=== PATIENT | male | born 1940 | race Caucasian/White ===

== ENCOUNTER 2016-04-27 07:43 | Outpatient (CLI) | payer MEDICARE, BC ==
[2016-04-27 08:06] LABS: INR-International Normal Ratio 3.1; Prothrombin Time 31.5 SEC (12.0-14.7)
== END 2016-04-27 07:44 | disposition home or self-care (01) ==
LOC: MADLAB 07:43
PROVIDERS: ATTEND Family Medicine
DX: I48.91 Unspecified atrial fibrillation (principal)
CPT/HCPCS: 36415; 85610

== ENCOUNTER 2016-05-27 07:13 | Outpatient (CLI) | payer MEDICARE, BC ==
[2016-05-27 07:41] LABS: INR-International Normal Ratio 2.3; Prothrombin Time 25.2 SEC (12.0-14.7)
[2016-05-27 07:50] LABS: Hemoglobin A1c 8.4 % (4.0-6.0)
[2016-05-27 07:51] LABS: #Basophils 0.1 thou/uL (0.0-0.2); #Eosinphils 0.1 thou/uL (0.0-0.7); #Lymphocytes 2.2 thou/uL (1.20-3.40); #Monocytes 0.7 thou/uL (0.11-0.59); #Neutrophils 3.2 thou/uL (1.40-6.50); %Basophils 1.6 % (0.0-1.0); %Eosinophils 2.2 % (0.0-10.0); %Lymphocytes 33.8 % (21.0-51.0); %Monocytes 11.5 % (0.0-10.0); %Neutrophils 50.8 % (42.0-75.0); Hemoglobin 13.5 g/dL (14.0-18.0); Large Platelets SLIGHT; MDiff Complete? YES; Mean Corpuscular HGB CONC 33.7 g/dL (32.0-36.0); Mean Corpuscular Volume 88.9 fl (80.0-94.0); PLT Morphology Comment Appears Adequate; Platelet Count 154 thou/uL (130-400); RBC Distribution Width 13.9 % (11.5-14.5); Red Blood Cell (RBC) Count 4.51 mill/uL (4.70-6.10); White Blood Cell (WBC) Count 6.4 thou/uL (4.8-10.8)
[2016-05-27 08:05] LABS: ALT (SGPT) 33 U/L (0-55); AST (SGOT) 22 U/L (5-34); Albumin 4.1 g/dL (3.4-4.8); Alkaline Phosphatase 69 U/L (40-150); Anion Gap 13 mmol/L (10-20); BUN (Urea Nitrogen) 13 mg/dL (8.4-25.7); Bilirubin, Direct 0.2 mg/dL (0.1-0.3); Bilirubin, Total 0.5 mg/dL (0.2-1.2); Calc. Creatinine Clearance 0 mL/min (70-130); Calcium 9.3 mg/dL (7.8-10.44); Carbon Dioxide 29 mmol/L (23-31); Cardiac Risk 3.4 (Less than 4.5); Chloride 100 mmol/L (98-107); Cholesterol 120 mg/dL (< 200 Desired); Estimated GFR-MDRD 69; Glucose 123 mg/dL (83-110); HDL Cholesterol 35 mg/dL (>60 Neg Risk); LDL Cholesterol, Calculated 60 mg/dL; Potassium 3.8 mmol/L (3.5-5.1); Protein, Total 6.5 g/dL (5.8-8.1); Sodium 138 mmol/L (136-145); Triglycerides 125 mg/dL (Less than 150)
== END 2016-05-27 07:14 ==
LOC: MADLABBHPM 07:13
PROVIDERS: ATTEND Family Medicine
DX: E78.5 Hyperlipidemia, unspecified (principal); E11.9 Type 2 diabetes mellitus without complications; I48.91 Unspecified atrial fibrillation
CPT/HCPCS: 36415; 80048; 80061; 80076; 83036; 85025; 85610

== ENCOUNTER 2016-09-01 07:14 | Outpatient (CLI) | payer MEDICARE, BC ==
[2016-09-01 07:48] LABS: #Basophils 0.1 thou/uL (0.0-0.2); #Eosinphils 0.1 thou/uL (0.0-0.7); #Lymphocytes 2.1 thou/uL (1.20-3.40); #Monocytes 0.6 thou/uL (0.11-0.59); %Basophils 1.2 % (0.0-1.0); %Eosinophils 2.3 % (0.0-10.0); %Lymphocytes 35.6 % (21.0-51.0); %Monocytes 9.9 % (0.0-10.0); %Neutrophils 51.1 % (42.0-75.0); Hemoglobin 13.6 g/dL (14.0-18.0); Mean Corpuscular HGB CONC 33.6 g/dL (32.0-36.0); Mean Corpuscular Hemoglobin 30.4 pg (27.0-31.0); Mean Corpuscular Volume 90.5 fL (80.0-94.0); Mean Platelet Volume 13.9 fL (7.4-10.4); Platelet Count 144 thou/uL (130-400); RBC Distribution Width 13.3 % (11.5-14.5); Red Blood Cell (RBC) Count 4.48 mill/uL (4.70-6.10); White Blood Cell (WBC) Count 5.8 thou/uL (4.8-10.8)
[2016-09-01 08:11] LABS: PLT Morphology Comment Appears Adequate
[2016-09-01 08:23] LABS: INR-International Normal Ratio 2.3; Prothrombin Time 24.8 SEC (12.0-14.7)
[2016-09-01 08:29] LABS: Anion Gap 14 mmol/L (10-20); BUN (Urea Nitrogen) 11 mg/dL (8.4-25.7); Calc. Creatinine Clearance 0 mL/min (70-130); Calcium 9.2 mg/dL (7.8-10.44); Carbon Dioxide 28 mmol/L (23-31); Cardiac Risk 3.3 (Less than 4.5); Chloride 101 mmol/L (98-107); Cholesterol 129 mg/dl (< 200 Desired); Estimated GFR-MDRD 71; Glucose 146 mg/dL (83-110); HDL Cholesterol 39 mg/dL (>60 Neg Risk); LDL Cholesterol, Calculated 64 mg/dL; Potassium 3.7 mmol/L (3.5-5.1); Sodium 139 mmol/L (136-145); Triglycerides 132 mg/dL (Less than 150)
== END 2016-09-01 07:15 ==
LOC: MADLABBHPM 07:14
PROVIDERS: ATTEND Family Medicine
DX: I48.91 Unspecified atrial fibrillation (principal); E11.9 Type 2 diabetes mellitus without complications
CPT/HCPCS: 36415; 80048; 80061; 83036; 85025; 85610

== ENCOUNTER 2016-10-06 07:22 | Outpatient (CLI) | payer MEDICARE, BC ==
[2016-10-06 08:52] LABS: INR-International Normal Ratio 1.9; Prothrombin Time 21.8 SEC (12.0-14.7)
== END 2016-10-06 07:23 | disposition home or self-care (01) ==
LOC: MADLABBHPM 07:22
PROVIDERS: ATTEND Family Medicine
DX: I48.91 Unspecified atrial fibrillation (principal)
CPT/HCPCS: 36415; 85610

== ENCOUNTER 2016-11-29 07:17 | Outpatient (CLI) | payer MEDICARE, BC ==
[2016-11-29 07:57] LABS: INR-International Normal Ratio 2.2; Prothrombin Time 24.9 SEC (12.0-14.7)
[2016-11-29 08:05] LABS: Hemoglobin A1c 9.4 % (4.0-6.0)
[2016-11-29 08:07] LABS: ALT (SGPT) 40 U/L (8-55); AST (SGOT) 22 U/L (5-34); Albumin 4.1 g/dL (3.4-4.8); Alkaline Phosphatase 72 U/L (40-150); Bilirubin, Direct 0.2 mg/dL (0.1-0.3); Bilirubin, Total 0.5 mg/dL (0.2-1.2); Cardiac Risk 3.1 (Less than 4.5); Cholesterol 129 mg/dl (< 200 Desired); HDL Cholesterol 42 mg/dL (>60 Neg Risk); LDL Cholesterol, Calculated 63 mg/dL; Protein, Total 6.9 g/dL (5.8-8.1); Triglycerides 121 mg/dL (Less than 150)
[2016-11-29 09:29] LABS: #Basophils 0.1 thou/uL (0.0-0.2); #Eosinphils 0.1 thou/uL (0.0-0.7); #Lymphocytes 2.3 thou/uL (1.20-3.40); #Monocytes 0.6 thou/uL (0.11-0.59); #Neutrophils 2.5 thou/uL (1.40-6.50); %Basophils 1.4 % (0.0-1.0); %Lymphocytes 41.5 % (21.0-51.0); Hemoglobin 13.7 g/dL (14.0-18.0); Mean Corpuscular HGB CONC 32.2 g/dL (32.0-36.0); Mean Corpuscular Hemoglobin 29.5 pg (27.0-31.0); Mean Corpuscular Volume 91.5 fl (80.0-94.0); Mean Platelet Volume 12.7 fL (7.4-10.4); Platelet Count 154 thou/uL (130-400); RBC Distribution Width 13.7 % (11.5-14.5); Red Blood Cell (RBC) Count 4.66 mill/uL (4.70-6.10); White Blood Cell (WBC) Count 5.6 thou/uL (4.8-10.8)
[2016-11-29 09:39] LABS: Large Platelets SLIGHT; PLT Morphology Comment Appears Adequate
== END 2016-11-29 07:18 | disposition home or self-care (01) ==
LOC: MADLABBHPM 07:17
PROVIDERS: ATTEND Family Medicine
DX: E11.9 Type 2 diabetes mellitus without complications (principal); I48.91 Unspecified atrial fibrillation; Z79.899 Other long term (current) drug therapy
CPT/HCPCS: 36415; 80061; 80076; 83036; 85025; 85610

== ENCOUNTER 2017-01-19 13:58 | Emergency (ER) | payer MEDICARE, BC ==
[~2017-01-19 13:58] MED LIST: Sodium Chloride Irrig Solution 250 ML BOT ONE
[2017-01-19] MEDS ORDERED: Adacel (T-DAP) 0.5 ML VIAL ONE (14:19)
[2017-01-19] MEDS ORDERED: Triple Antibiotic Ointment 15 GM TUBE ONE (14:38)
[2017-01-19] MEDS ORDERED: Acetaminophen/Codeine 30-300mg Tablet ONE (14:46)
== END 2017-01-19 14:57 | disposition home or self-care (01) ==
LOC: MADERS 13:58
DX: S50.812A Abrasion of left forearm, initial encounter (principal); I25.10 Atherosclerotic heart disease of native coronary artery without angina pectoris; I48.91 Unspecified atrial fibrillation; E11.9 Type 2 diabetes mellitus without complications; E78.5 Hyperlipidemia, unspecified; Z86.73 Personal history of transient ischemic attack (TIA), and cerebral infarction without residual deficits; Z23 Encounter for immunization; X58.XXXA Exposure to other specified factors, initial encounter
CPT/HCPCS: 90471; 90715

== ENCOUNTER 2017-02-09 07:52 | Outpatient (CLI) | payer MEDICARE, BC ==
[2017-02-09 09:03] LABS: INR-International Normal Ratio 2.1; Prothrombin Time 24.4 SEC (12.0-14.7)
[2017-02-09 09:13] LABS: ALT (SGPT) 51 U/L (8-55); AST (SGOT) 35 U/L (5-34); Albumin 4.1 g/dL (3.4-4.8); Alkaline Phosphatase 68 U/L (40-150); Anion Gap 14 mmol/L (10-20); BUN (Urea Nitrogen) 18 mg/dL (8.4-25.7); Bilirubin, Direct 0.2 mg/dL (0.1-0.3); Bilirubin, Total 0.6 mg/dL (0.2-1.2); Calc. Creatinine Clearance 0 mL/min (70-130); Calcium 9.2 mg/dL (7.8-10.44); Carbon Dioxide 28 mmol/L (23-31); Cardiac Risk 2.8 (Less than 4.5); Chloride 101 mmol/L (98-107); Cholesterol 113 mg/dl (< 200 Desired); Estimated GFR-MDRD 80; Glucose 165 mg/dL (83-110); HDL Cholesterol 40 mg/dL (>60 Neg Risk); Hemoglobin A1c 6.6 % (4.0-6.0); LDL Cholesterol, Calculated 50 mg/dL; Potassium 3.8 mmol/L (3.5-5.1); Protein, Total 6.9 g/dL (5.8-8.1); Sodium 139 mmol/L (136-145); Triglycerides 117 mg/dL (Less than 150)
[2017-02-09 09:38] LABS: #Basophils 0.1 thou/uL (0.0-0.2); #Eosinphils 0.1 thou/uL (0.0-0.7); #Monocytes 0.5 thou/uL (0.11-0.59); #Neutrophils 3.2 thou/uL (1.40-6.50); %Basophils 1.1 % (0.0-1.0); %Eosinophils 1.8 % (0.0-10.0); %Lymphocytes 33.5 % (21.0-51.0); %Monocytes 9.1 % (0.0-10.0); %Neutrophils 54.4 % (42.0-75.0); Hemoglobin 13.4 g/dL (14.0-18.0); Mean Corpuscular Hemoglobin 30.3 pg (27.0-31.0); Mean Corpuscular Volume 91.9 fl (80.0-94.0); Mean Platelet Volume 11.6 fL (7.4-10.4); Platelet Count 158 thou/uL (130-400); RBC Distribution Width 13.5 % (11.5-14.5); White Blood Cell (WBC) Count 5.9 thou/uL (4.8-10.8)
== END 2017-02-09 07:53 | disposition home or self-care (01) ==
LOC: MADLABBHPM 07:52
PROVIDERS: ATTEND Family Medicine
DX: E11.9 Type 2 diabetes mellitus without complications (principal); E78.5 Hyperlipidemia, unspecified; I48.91 Unspecified atrial fibrillation
CPT/HCPCS: 36415; 80048; 80061; 80076; 83036; 85025; 85610

== ENCOUNTER 2017-03-09 08:17 | Outpatient (CLI) | payer MEDICARE, BC ==
[2017-03-09 08:33] LABS: INR-International Normal Ratio 2.7; Prothrombin Time 29.4 SEC (12.0-14.7)
== END 2017-03-09 08:18 | disposition home or self-care (01) ==
LOC: MADLAB 08:17
PROVIDERS: ATTEND Family Medicine
DX: Z51.81 Encounter for therapeutic drug level monitoring (principal); I48.91 Unspecified atrial fibrillation; Z79.01 Long term (current) use of anticoagulants
CPT/HCPCS: 36415; 85610

== ENCOUNTER 2017-05-12 12:43 | Outpatient (CLI) | payer MEDICARE, BC ==
[2017-05-12 13:01] LABS: Prothrombin Time 32.2 SEC (12.0-14.7)
== END 2017-05-12 12:44 | disposition home or self-care (01) ==
LOC: MADLABBHPM 12:43
PROVIDERS: ATTEND Family Medicine
DX: I48.91 Unspecified atrial fibrillation (principal)
CPT/HCPCS: 36415; 85610

== ENCOUNTER 2017-06-03 08:58 | Outpatient (CLI) | payer MEDICARE, BC ==
[2017-06-03 09:23] LABS: #Basophils 0.1 thou/uL (0.0-0.2); #Eosinphils 0.1 thou/uL (0.0-0.7); #Lymphocytes 2.6 thou/uL (1.20-3.40); #Monocytes 0.7 thou/uL (0.11-0.59); #Neutrophils 3.6 thou/uL (1.40-6.50); %Basophils 1.5 % (0.0-1.0); %Eosinophils 1.6 % (0.0-10.0); %Lymphocytes 35.7 % (21.0-51.0); %Monocytes 10.4 % (0.0-10.0); %Neutrophils 50.8 % (42.0-75.0); Hemoglobin 12.8 g/dL (14.0-18.0); Mean Corpuscular HGB CONC 32.2 g/dL (32.0-36.0); Mean Corpuscular Hemoglobin 28.9 pg (27.0-31.0); Mean Corpuscular Volume 89.8 fl (80.0-94.0); Mean Platelet Volume 10.9 fL (7.4-10.4); Platelet Count 165 thou/uL (130-400); RBC Distribution Width 14.3 % (11.5-14.5); Red Blood Cell (RBC) Count 4.44 mill/uL (4.70-6.10); White Blood Cell (WBC) Count 7.2 thou/uL (4.8-10.8)
[2017-06-03 09:27] LABS: INR-International Normal Ratio 2.1; Prothrombin Time 24.3 SEC (12.0-14.7)
[2017-06-03 09:38] LABS: ALT (SGPT) 40 U/L (8-55); AST (SGOT) 23 U/L (5-34); Albumin 4.2 g/dL (3.4-4.8); Alkaline Phosphatase 72 U/L (40-150); Anion Gap 14 mmol/L (10-20); BUN (Urea Nitrogen) 21 mg/dL (8.4-25.7); Bilirubin, Total 0.5 mg/dL (0.2-1.2); Calc. Creatinine Clearance 0 mL/min (70-130); Calcium 9.1 mg/dL (7.8-10.44); Carbon Dioxide 28 mmol/L (23-31); Cardiac Risk 2.6 (Less than 4.5); Chloride 101 mmol/L (98-107); Cholesterol 110 mg/dl (< 200 Desired); Estimated GFR-MDRD 74; Glucose 95 mg/dL (83-110); HDL Cholesterol 43 mg/dL (>60 Neg Risk); LDL Cholesterol, Calculated 54 mg/dL; Potassium 4.1 mmol/L (3.5-5.1); Protein, Total 6.7 g/dL (5.8-8.1); Sodium 139 mmol/L (136-145); Triglycerides 64 mg/dL (Less than 150)
[2017-06-03 12:18] LABS: Bilirubin, Direct 0.3 mg/dL (0.1-0.3)
[2017-06-03 17:01] LABS: Hemoglobin A1c 6.2 % (4.0-6.0)
== END 2017-06-03 08:59 | disposition home or self-care (01) ==
LOC: MADLABBHPM 08:58
PROVIDERS: ATTEND Family Medicine
DX: E11.9 Type 2 diabetes mellitus without complications (principal); I10 Essential (primary) hypertension
CPT/HCPCS: 36415; 80048; 80061; 80076; 83036; 85025; 85610

== ENCOUNTER 2017-07-07 08:40 | Outpatient (CLI) | payer MEDICARE, BC ==
[2017-07-07 10:22] LABS: INR-International Normal Ratio 2.1; Prothrombin Time 24.7 SEC (12.0-14.7)
== END 2017-07-07 08:41 | disposition home or self-care (01) ==
LOC: MADLABBHPM 08:40
PROVIDERS: ATTEND Family Medicine
DX: Z51.81 Encounter for therapeutic drug level monitoring (principal); I48.91 Unspecified atrial fibrillation; Z79.01 Long term (current) use of anticoagulants
CPT/HCPCS: 36415; 85610

== ENCOUNTER 2017-09-02 07:22 | Outpatient (CLI) | payer MEDICARE, BC ==
[2017-09-02 07:54] LABS: #Basophils 0.1 thou/uL (0.0-0.2); #Eosinphils 0.1 thou/uL (0.0-0.7); #Lymphocytes 2.1 thou/uL (1.20-3.40); #Monocytes 0.6 thou/uL (0.11-0.59); #Neutrophils 3.5 thou/uL (1.40-6.50); %Basophils 1.2 % (0.0-1.0); %Eosinophils 0.8 % (0.0-10.0); %Lymphocytes 32.8 % (21.0-51.0); %Monocytes 9.5 % (0.0-10.0); %Neutrophils 55.8 % (42.0-75.0); Hemoglobin 13.2 g/dL (14.0-18.0); Mean Corpuscular Hemoglobin 27.8 pg (27.0-31.0); Mean Corpuscular Volume 86.7 fl (80.0-94.0); Mean Platelet Volume 11.4 fL (7.4-10.4); Platelet Count 162 thou/uL (130-400); RBC Distribution Width 14.2 % (11.5-14.5); Red Blood Cell (RBC) Count 4.74 mill/uL (4.70-6.10); White Blood Cell (WBC) Count 6.3 thou/uL (4.8-10.8)
[2017-09-02 09:27] LABS: Prothrombin Time 23.6 SEC (12.0-14.7)
[2017-09-02 09:40] LABS: ALT (SGPT) 31 U/L (8-55); AST (SGOT) 17 U/L (5-34); Albumin 4.2 g/dL (3.4-4.8); Alkaline Phosphatase 62 U/L (40-150); Anion Gap 12 mmol/L (10-20); BUN (Urea Nitrogen) 15 mg/dL (8.4-25.7); Bilirubin, Direct 0.2 mg/dL (0.1-0.3); Bilirubin, Total 0.7 mg/dL (0.2-1.2); Calc. Creatinine Clearance 0 mL/min (70-130); Calcium 9.3 mg/dL (7.8-10.44); Carbon Dioxide 29 mmol/L (23-31); Cardiac Risk 2.2 (Less than 4.5); Chloride 101 mmol/L (98-107); Cholesterol 112 mg/dl (< 200 Desired); Estimated GFR-MDRD 84; Glucose 115 mg/dL (83-110); HDL Cholesterol 51 mg/dL (>60 Neg Risk); LDL Cholesterol, Calculated 49 mg/dL; Protein, Total 6.7 g/dL (5.8-8.1); Sodium 138 mmol/L (136-145); Triglycerides 59 mg/dL (Less than 150)
[2017-09-02 11:47] LABS: Hemoglobin A1c 6.9 % (4.0-6.0)
== END 2017-09-02 07:23 ==
LOC: MADLABBHPM 07:22
PROVIDERS: ATTEND Family Medicine
DX: E11.9 Type 2 diabetes mellitus without complications (principal); E78.5 Hyperlipidemia, unspecified; I48.91 Unspecified atrial fibrillation
CPT/HCPCS: 36415; 80048; 80061; 80076; 83036; 85025; 85610

== ENCOUNTER 2017-09-30 14:39 | Emergency (ER) | payer MEDICARE, BC ==
[2017-09-30] MEDS ORDERED: Labetalol HCl 100 MG/20 ML VIAL ONE (15:12)
[2017-09-30 15:14] LABS: #Basophils 0.1 thou/uL (0.0-0.2); #Lymphocytes 1.9 thou/uL (1.20-3.40); #Neutrophils 8.3 thou/uL (1.40-6.50); %Basophils 0.6 % (0.0-1.0); %Eosinophils 0.2 % (0.0-10.0); %Lymphocytes 16.5 % (21.0-51.0); %Monocytes 9.2 % (0.0-10.0); %Neutrophils 73.5 % (42.0-75.0); Hemoglobin 13.5 g/dL (14.0-18.0); Large Platelets SLIGHT; MDiff Complete? YES; Mean Corpuscular HGB CONC 33.4 g/dL (32.0-36.0); Mean Corpuscular Hemoglobin 28.8 pg (27.0-31.0); Mean Corpuscular Volume 86.2 fL (78.0-98.0); Platelet Count 167 thou/uL (130-400); RBC Distribution Width 14.1 % (11.5-14.5); Red Blood Cell (RBC) Count 4.68 mill/uL (4.70-6.10); White Blood Cell (WBC) Count 11.3 thou/uL (4.8-10.8)
[2017-09-30 15:19] LABS: INR-International Normal Ratio 2.6; Prothrombin Time 27.7 SEC (12.0-14.7)
[2017-09-30 15:21] LABS: Chloride 100 mmol/L (98-107); Potassium 4.4 mmol/L (3.5-5.1); Sodium 136 mmol/L (136-145)
[2017-09-30 15:24] LABS: PTT 49.3 SEC (22.9-36.1)
--- NOTE | 2017-09-30 15:25 | RAD ---
PORTABLE CHEST 1 VIEW: Date: 09/30/17 Time: 1455 hours HISTORY: Tachycardia. FINDINGS: Comparison made with exam of 11/28/11. The heart is enlarged. The lungs are well expanded without lobar consolidation, pneumothoraces, alireza pulmonary edema, or pleural effusions. IMPRESSION: No acute process. POS: C
[2017-09-30 15:29] LABS: CKMB 2.6 ng/mL (0-6.6); D-Dimer Test Less than 0.27 *mcg/mL (0.27-0.43); Troponin I 0.295 ng/mL (< 0.028)
[2017-09-30 16:05] LABS: ALT (SGPT) 26 U/L (8-55); AST (SGOT) 17 U/L (5-34); Alkaline Phosphatase 62 U/L (40-150); BUN (Urea Nitrogen) 14 mg/dL (8.4-25.7); CK (CPK) 96 U/L (30-200); Calc. Creatinine Clearance 0 mL/min (70-130); Calcium 8.9 mg/dL (7.8-10.44); Carbon Dioxide 23 mmol/L (23-31); Estimated GFR-MDRD 73; Globulin 2.7 g/dL (2.4-3.5); Glucose 156 mg/dL (83-110); Protein, Total 6.7 g/dL (5.8-8.1)
[2017-09-30 16:14] LABS: Anion Gap 17 mmol/L (10-20)
[2017-09-30 17:31] LABS: Bilirubin Negative (Negative); Blood, Urine Negative (Negative); Clarity Clear (Clear); Glucose, Urine (Dipstick) Negative (Negative); Leukocyte Negative (Negative); Nitrite Negative (Negative); Protein, Urine (Dipstick) 30 mg/dL (Neg-Trace); Specific Gravity, Urine 1.025 (1.005-1.030); pH, Urine 6.5 (5.0-9.0)
[2017-09-30 17:40] LABS: Bacteria/HPF None Seen HPF (None Seen); RBC/HPF None Seen HPF (0-3); Sperm/HPF 1+ HPF (None Seen); Squamous Epithelial 0-3 HPF (0-3); WBC/HPF None Seen HPF (0-3)
== END 2017-09-30 18:44 | disposition short-term general hospital (02) ==
LOC: MADERS 14:39
DX: I21.4 Non-ST elevation (NSTEMI) myocardial infarction (principal); I48.92 Unspecified atrial flutter; I50.9 Heart failure, unspecified; E11.9 Type 2 diabetes mellitus without complications; E78.5 Hyperlipidemia, unspecified; M06.9 Rheumatoid arthritis, unspecified
CPT/HCPCS: 36415; 71045; 80053; 81001; 82553; 83880; 84484; 85025; 85379; 85610; 85730; 93005; 94760; 96374; 96376

== ENCOUNTER 2017-10-25 14:05 | Inpatient (IN) | payer MEDICARE, BC ==
[2017-10-25] MEDS ORDERED: Acetaminophen/Codeine 30-300mg Tablet PO PRN (17:07)
[2017-10-25] MEDS ORDERED: Dextrose 5% in Water 1,000 ML IV PRN (17:32)
[2017-10-25] MEDS ORDERED: Dextrose 50% Abboject 50 ML SYRINGE IVP PRN (17:32)
[2017-10-25] MEDS: Acetaminophen/Codeine 30-300mg Tablet PO PRN ×2 (17:41→23:40)
[2017-10-25] MEDS: HumaLOG 300 UNITS/3 ML VIAL SC SCH (17:50)
[2017-10-25] MEDS ORDERED: Cephalexin 500 MG CAP PO SCH (20:00)
[2017-10-25] MEDS: Apixaban 5 MG TAB PO SCH (21:23)
[2017-10-25] MEDS: Pregabalin 50 MG CAP PO SCH (21:24)
[2017-10-25] MEDS: Levemir Flexpen 100 UNITS/ML PEN SC SCH (21:25)
[2017-10-25] MEDS: Latanoprost 0.005% Ophth Soln 2.5 ml Bottle EA EYE SCH (21:26)
[2017-10-25] MEDS: Cephalexin 500 MG CAP PO SCH (23:40)
--- NOTE | 2017-10-26 00:30 | HP ---
CHIEF COMPLAINT: Weakness. HISTORY OF PRESENT ILLNESS: The patient is a 76-year-old white male who has a history of diabetes type 2, insulin requiring, paroxysmal atrial fibrillation, hypertension, rheumatoid arthritis, venous insufficiency of the lower extremities. Patient was hospitalized at [facility] from 09/30/2017 until 10/25/2017. The patient entered the hospital because of shortness of breath and rapid heart rate and was found to be in atrial fibrillation/flutter with rapid ventricular response. His initial echocardiogram showed severe depression of the left ventricular function with dilated left atrium and an ejection fraction of 15-20%. He initially was managed with diuretics a Cardizem drip that did not control the rate and amiodarone drip was added. He persisted with the tachycardia. He was seen in consultation by ceramic design engineer, Dr. Johansen and on 10/04/2017, he underwent a cavotricuspid isthmus ablation that was unsuccessful and required cardioversion. A repeat echocardiogram was done on 10/07/2017 that showed severe aortic stenosis, severe left atrial enlargement and now an ejection fraction had improved to 50- 55%. The initial severe ejection fraction depression was felt to be tachycardia induced, his congestive heart failure improved. The patient developed polymorphic ventricular tachycardia that was controlled with his amiodarone. He underwent a heart catheterization on 10/12/2017 and found to have severe triple-vessel disease with severe aortic stenosis. Consequently, he underwent a coronary artery bypass x3, aortic valve replacement with a bioprosthetic valve #25 magna and a ligation of the left atrial appendage, Dr. Jim Hernandez on 10/14/2017. The patient again developed episodes of atrial fibrillation with rapid ventricular response. Patient had again had episodes of rapid ventricular response with atrial fibrillation. He underwent a transesophageal echocardiogram on 10/19/2017 that showed normal left ventricular systolic function, left atrial appendage, leak of 0.3 cm and a clot left atrial appendage. The patient was on 10/20/2017 underwent a successful AV claudia ablation and also had placed a biventricular pacemaker. He was monitored for several days afterwards to ensure that there was no further prolongation of his QT interval. Patient gradually improved. He had marked peripheral edema that gradually resolved with IV diuresis. He was left extremely weak. He was continued on anticoagulant with Eliquis. While hospitalized, his diabetes was managed with his usual dose of Humalog 10 units before meals and Levemir 40 units daily at bedtime. His condition was one of gradual improvement. He was discharged to [facility] to extended care due to his severe weakness and deconditioning. Patient was seen in his hospital room at [facility] along with his and daughter. He was able to tell me about the prolonged hospitalization, he said he is feeling a lot better, but just extremely weak and sore in his chest and along the legs were from the donor sites for his graft harvesting. Patient said he has not had any shortness of breath and the swelling is much better. PAST HISTORY: Hospitalized at [facility] for 09/30/2017-10/25/2017 as outlined above Diabetes type 2, insulin requiring; history of paroxysmal atrial fibrillation requiring hospitalization for rapid ventricular response with congestive heart failure on 09/30/2017, tachycardia-induced cardiomyopathy with an ejection fraction on admission on 09/30/2017 of 15-20% improved after control of the tachycardia to 50-55% on repeat echocardiogram on 10/07/2017. Clot in the left atrial appendage found on transesophageal echocardiogram on with aortic stenosis for which he underwent an aortic valve replacement on 10/14/2017 with coronary artery bypass x3 and ligation of the left atrial appendage, hypertension, rheumatoid arthritis that is managed with low-dose prednisone, Enbrel weekly, methotrexate and hydroxychloroquine, obstructive sleep apnea for which he uses a CPAP, hyperlipidemia, history of asthma, gastroesophageal reflux disease, venous insufficiency of the lower extremities with chronic stasis dermatitis, obesity. The patient had a colonoscopy which showed internal hemorrhoids. This was done in 2011, left carpal tunnel repair in 2010, right knee orthoscopy with medial meniscus repair in 2004, low back surgery for ruptured disk in 1973, cataract removal in 07/2017 on the right with intraocular lens implant on the left in 08/2017. PRESENT MEDICATIONS: Eliquis 5 mg b.i.d., atorvastatin 20 mg daily, aspirin 81 mg daily, carvedilol 6.25 mg b.i.d., cephalexin 500 mg q.i.d. prescribed for 7 days, Zyrtec 10 mg daily as needed for allergies, Enbrel 50 mg per mL 1 mL subQ once a week, furosemide 40 mg b.i.d., folic acid 1 mg daily. At home he takes instead of the gabapentin, Lyrica 50 mg 1 daily at bedtime, Humalog 10 units subQ before meals, Levemir 40 units subcutaneous daily at bedtime, Xalatan 0.005 % 1 drop in the eyes at bedtime, losartan 25 mg daily, multivitamin daily, methotrexate 7.5 mg twice daily, MiraLax 17 grams 8 ounces water daily, Prilosec 20 mg daily, KCl 20 mEq b.i.d., prednisone 5 mg daily, spironolactone 25 mg b.i.d., albuterol inhaler 2 puffs every 4 hours as needed, and Tylenol #3 one or two every 6 hours as needed for pain. ALLERGIES: LISINOPRIL causes a cough. SPIRONOLACTONE gynecomastia. METFORMIN diarrhea. Hydroxychloroquin, LEVAQUIN interactions with his medication. MULTAQ. REVIEW OF SYSTEMS: The patient said he is weak and just does not have a lot of energy yet. He has not had any fever since his weight has dropped some with the resolution of the edema in his legs and groin. Pulmonary: No shortness of breath. Cardiovascular: No chest pain other than the chest wall soreness from the sternal incision. Gastrointestinal: No nausea or vomiting. Bowels are working. : No complaint. Neurologic: No complaints. ADLs: Prior to hospitalization, the patient was independent of all his ADLs and instrumental ADLs. HABITS: The patient does not smoke or drink. SOCIAL HISTORY: Patient is and lives at home with his and child. CODE STATUS: FULL CODE. PHYSICAL EXAMINATION: GENERAL: Shows a very pleasant 76-year-old white male who is lying propped up in his bed with his and daughter in attendance. He is alert, appears comfortable and in no distress. VITAL SIGNS: Shows a temperature of 97.9, pulse 82, respirations 20, O2 sat 96 % on room air, blood pressure 117/64. His weight is 272. Last weight in the office on 09/07/2017 was 289. HEAD: Normocephalic. EYES: Pupils are equal, round, and reactive. Sclerae nonicteric. EARS: There is some cerumen blocking the TMs bilaterally. NOSE: Normal. MOUTH AND THROAT: Normal. NECK: Carotids are equal and strong, no bruits. LUNGS: Clear with good breath sounds, but no rales or wheezes. HEART: Regular rate. STERNUM: There is a vertical incision that is healing. There are three wounds just in the epigastrium from his chest tubes that are healing, but they are still small and not yet completely closed. There is no surrounding redness or drainage. On the right upper chest, there is some just local irritation to the skin. Pacemaker site in the left upper chest. ABDOMEN: Soft, no organomegaly, nor areas of tenderness. EXTREMITIES: Trace edema in his chronic stasis changes. NEUROLOGIC: The patient is alert, oriented x3 with some generalized weakness, but no focal weakness. IMPRESSION: 1. Generalized weakness and deconditioning following a prolonged hospitalization at [facility] from 09/30/2017 until 10/25/2017. 2. Hospitalized at [facility] from 09/30/2017 until for atrial fibrillation with rapid ventricular response, congestive heart failure, requiring cavotricuspid isthmus ablation unsuccessful and cardioversion on 10/14/2017, coronary artery bypass x3 and aortic valve replacement with a bioprosthetic valve for severe aortic stenosis and then successful AV claudia ablation and biventricular pacemaker implant on 10/20/2017 3. Atrial fibrillation. A. History of paroxysmal atrial fibrillation, historically managed with Multaq. B. Hospitalized on 09/30/2017 for atrial fibrillation with RVR. C. Required cavotricuspid isthmus ablation that was unsuccessful and electric cardioversion on 10/04/2017. D. Status post successful AV claudia ablation and placement of a biventricular pacemaker on 10/20/[address] Johansen, ceramic design engineer. E. 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 4. Coronary artery disease, triple vessel. A. Status post coronary artery bypass x3 with ligation of the left atrial appendage on 10/14/[address] Jim Hernandez along with aortic valve replacement. 5. Severe aortic stenosis. A. Status post aortic valve replacement with a bioprosthetic valve a #25 Magna on 10/14/[address] Jim Hernandez. 6. Acute congestive heart failure. A. Resolved with no evidence of acute congestive heart failure as of 07/24/ 2018. 7. History of ventricular arrhythmias, controlled. 8. Diabetes type 2. A. Insulin requiring. 9. Rheumatoid arthritis. 10. Hypertension. 11. Morbid obesity. 14. Obstructive sleep apnea for which he is on CPAP. 15. Venous insufficiency of the lower extremities complicated by stasis dermatitis that is controlled. 16. Gastroesophageal reflux disease. 17. History of asthma. A. Presently asymptomatic. PLAN: The patient has been admitted to [facility] for purpose of physical therapy and occupational therapy. We will continue his routine medications. We will continue checking blood sugars a.c. and at bedtime and place him on a consistent low carbohydrate diet with no added salt. We will advance activities as tolerated. CODE STATUS: FULL. MTDD
[2017-10-26 05:44] LABS: ALT (SGPT) 18 U/L (8-55); AST (SGOT) 17 U/L (5-34); Albumin 3.1 g/dL (3.4-4.8); Alkaline Phosphatase 67 U/L (40-150); Anion Gap 17 mmol/L (10-20); BUN (Urea Nitrogen) 27 mg/dL (8.4-25.7); Bilirubin, Total 1.1 mg/dL (0.2-1.2); Calc. Creatinine Clearance 83 mL/min (70-130); Calcium 9.2 mg/dL (7.8-10.44); Carbon Dioxide 31 mmol/L (23-31); Chloride 95 mmol/L (98-107); Estimated GFR-MDRD 53; Globulin 2.6 g/dL (2.4-3.5); Glucose 116 mg/dL (83-110); Potassium 4.8 mmol/L (3.5-5.1); Protein, Total 5.7 g/dL (5.8-8.1)
[2017-10-26 05:46] LABS: Anisocytosis SLIGHT = 6-15 cells (100X) (0-5/hpf); Hemoglobin 10.4 g/dL (14.0-18.0); Hypochromia SLIGHT = 6-15 cells (100X) (0-5/hpf); Lymphocytes 16 % (21-51); MDiff Complete? YES; Mean Corpuscular HGB CONC 32.8 g/dL (32.0-36.0); Mean Corpuscular Hemoglobin 28.1 pg (27.0-31.0); Mean Corpuscular Volume 85.4 fL (78.0-98.0); Mean Platelet Volume 10.4 fL (7.4-10.4); Monocytes 5 % (0-10); Neutrophil 72 % (42-75); PLT Morphology Comment Appears Adequate; Platelet Count 179 thou/uL (130-400); Poikilocytosis SLIGHT = 6-15 cells (100X) (0-5/hpf); RBC Distribution Width 15.8 % (11.5-14.5); RBC Morphology Abnormal; Reactive Lymphocytes 7 % (0-10); Red Blood Cell (RBC) Count 3.69 mill/uL (4.70-6.10); White Blood Cell (WBC) Count 8.6 thou/uL (4.8-10.8)
[2017-10-26 05:49] LABS: Sodium 138 mmol/L (136-145)
[2017-10-26] MEDS: Cephalexin 500 MG CAP PO SCH ×4 (05:51→23:37)
[2017-10-26] MEDS: Acetaminophen/Codeine 30-300mg Tablet PO PRN ×3 (05:51→21:09)
[2017-10-26] MEDS ORDERED: Potassium Chloride 20 MEQ TAB PO SCH (08:00)
[2017-10-26] MEDS: Folic Acid 1 MG TAB PO SCH (08:25)
[2017-10-26] MEDS: Losartan 25 MG TAB PO SCH (08:25)
[2017-10-26] MEDS: predniSONE 5 MG TAB PO SCH (08:25)
[2017-10-26] MEDS: Furosemide 40 MG TAB PO SCH ×2 (08:25→13:40)
[2017-10-26] MEDS: Carvedilol 6.25 MG TAB PO SCH ×2 (08:25→17:10)
[2017-10-26] MEDS: Apixaban 5 MG TAB PO SCH ×2 (08:25→21:04)
[2017-10-26] MEDS: Aspirin 81 mg Enteric Coated Tablet PO SCH (08:25)
[2017-10-26] MEDS: Atorvastatin Calcium 10 MG TAB PO SCH (08:25)
[2017-10-26] MEDS: Multivitamin W/ Minerals 1 TAB PO SCH (08:25)
[2017-10-26] MEDS: Spironolactone 25 MG TAB PO SCH ×2 (08:25→17:11)
[2017-10-26] MEDS: Loratadine 10 MG TAB PO SCH (08:25)
[2017-10-26] MEDS: HumaLOG 300 UNITS/3 ML VIAL SC SCH ×4 (08:27→16:46)
[2017-10-26] MEDS: Polyethylene Glycol 3350 17 GM Packet PO SCH (08:27)
--- NOTE | 2017-10-26 08:37 | PRG ---
DATE OF SERVICE: 10/26/2017 SUBJECTIVE: The patient said he is doing okay this morning. The patient said he slept pretty well. He is not having any shortness of breath. He is still sore in his chest from just the incision, but no more than usual. The patient said that he takes the Lyrica at night. It helps with the neuropat hy in his legs. He was also taking just 100 mg dose of gabapentin. I am not really sure what for th is was stopped. I see high dose on the Lyrica alone. OBJECTIVE: The patient is lying in bed, alert, appears very comfortable, in no distress. His vital signs show a temperature 97.9, pulse 82, respirations 20, O2 sat 95% on room air, blood pressure 118/ 65. Lungs were clear. Heart, regular rate. Extremities, no edema. LABORATORY DATA: His labs show an H and H of 10.4 and 31.5, white cell count 8600 with 72% segs, 16% lymphocytes. Sodium is 138, potassium 4.8, BUN 27, creatinine 1.32, GFR 53. FBS 116. Last night a t bedtime glucose was 162 and just before supper 281. ASSESSMENT: 1. Generalized weakness and deconditioning following a prolonged hospitalization at [facility] from 09/30/2017 until 10/25/2017. A. Gradual improvement as of 10/26/2017. 2. Hospitalized at [facility] from 09/30/2017 until 10/25/2017 for atrial f ibrillation with rapid ventricular response, congestive heart failure, requiring cavotricuspid isthmu s ablation unsuccessful and cardioversion on 10/14/2017, coronary artery bypass x3 and aortic valve r eplacement with a bioprosthetic valve for severe aortic stenosis and then successful AV claudia ablatio n and biventricular pacemaker implant on 10/20/2017 3. Atrial fibrillation. A. History of paroxysmal atrial fibrillation, historically managed with Multaq. B. Hospitalized on 09/30/2017 for atrial fibrillation with RVR. C. Required cavotricuspid isthmus ablation that was unsuccessful and electric cardioversion on 10/04. D. Status post successful AV claudia ablation and placement of a biventricular pacemaker on 10/20/[address] Johansen, terry cloth cutter hand. E. 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 F. Remains in a regular rhythm with a rate in the 70 and 80s as of 10/26/2017. 4. Coronary artery disease, triple vessel. A. Status post coronary artery bypass x3 with ligation of the left atrial appendage on 10/14/[address] Jim Hernandez along with aortic valve replacement. B Healing well from his bypass surgery. 5. Severe aortic stenosis. A. Status post aortic valve replacement with a bioprosthetic valve a #25 Magna on 10/14/[address] Jim Hernandez. B. Healing well from his aortic valve replacement, as of 10/26/2017. 6. Acute congestive heart failure. A. Resolved with no evidence of acute congestive heart failure as of 10/25/2017. B. No evidence of acute congestive heart failure as of 10/26/2017. 7. History of ventricular arrhythmias, controlled. 8. Diabetes type 2. A. Insulin requiring. B. Well controlled. 9. Rheumatoid arthritis. A. Controlled. 10. Hypertension. 11. Morbid obesity. 14. Obstructive sleep apnea for which he is on CPAP. 15. Venous insufficiency of the lower extremities complicated by stasis dermatitis that is controlle d. 16. Gastroesophageal reflux disease. 17. History of asthma. A. Presently asymptomatic. PLAN: Continue present care. Continue PT and OT. The patient needs to arrange to bring his CPAP fr om home.
[2017-10-26] MEDS ORDERED: Gabapentin 100 MG CAP PO SCH (09:00)
[2017-10-26] MEDS ORDERED: Pregabalin 50 MG CAP PO SCH (09:00)
[2017-10-26] MEDS ORDERED: Potassium Chloride 10 MEQ TAB PO SCH (09:00)
[2017-10-26 12:27] LABS: Hemoglobin A1c 6.3 % (4.0-6.0)
[2017-10-26] MEDS ORDERED: Bisacodyl 10 MG SUPP PR PRN (14:46)
[2017-10-26] MEDS ORDERED: Mupirocin 2% Ointment 22 GM Tube TOP SCH (15:30)
[2017-10-26] MEDS: Potassium Chloride 10 MEQ TAB PO SCH (16:45)
[2017-10-26] MEDS: Latanoprost 0.005% Ophth Soln 2.5 ml Bottle EA EYE SCH (21:04)
[2017-10-26] MEDS: Levemir Flexpen 100 UNITS/ML PEN SC SCH (21:05)
[2017-10-26] MEDS: Pregabalin 50 MG CAP PO SCH (21:07)
[2017-10-27] MEDS: Cephalexin 500 MG CAP PO SCH ×4 (05:34→23:54)
[2017-10-27] MEDS: Acetaminophen/Codeine 30-300mg Tablet PO PRN ×3 (05:34→21:48)
[2017-10-27] MEDS: Carvedilol 6.25 MG TAB PO SCH ×2 (08:04→17:01)
[2017-10-27] MEDS: Potassium Chloride 10 MEQ TAB PO SCH ×2 (08:04→17:00)
[2017-10-27] MEDS: Polyethylene Glycol 3350 17 GM Packet PO SCH (08:05)
[2017-10-27] MEDS: Losartan 25 MG TAB PO SCH (08:05)
[2017-10-27] MEDS: Loratadine 10 MG TAB PO SCH (08:05)
[2017-10-27] MEDS: Apixaban 5 MG TAB PO SCH ×2 (08:05→21:46)
[2017-10-27] MEDS: Folic Acid 1 MG TAB PO SCH (08:05)
[2017-10-27] MEDS: Multivitamin W/ Minerals 1 TAB PO SCH (08:05)
[2017-10-27] MEDS: predniSONE 5 MG TAB PO SCH (08:05)
[2017-10-27] MEDS: Aspirin 81 mg Enteric Coated Tablet PO SCH (08:05)
[2017-10-27] MEDS: Spironolactone 25 MG TAB PO SCH ×2 (08:05→17:01)
[2017-10-27] MEDS: Atorvastatin Calcium 10 MG TAB PO SCH (08:05)
[2017-10-27] MEDS: Furosemide 40 MG TAB PO SCH ×2 (08:05→14:19)
[2017-10-27] MEDS: Mupirocin 2% Ointment 22 GM Tube TOP SCH (08:06)
[2017-10-27] MEDS: HumaLOG 300 UNITS/3 ML VIAL SC SCH ×3 (08:07→17:01)
[2017-10-27] MEDS: Methotrexate Sodium 2.5 MG TAB PO SCH (08:19)
[2017-10-27] MEDS ORDERED: Bacitracin Zinc 1 Packet TOP SCH (09:00)
--- NOTE | 2017-10-27 13:44 | PRG ---
DATE OF SERVICE: 10/27/2017 SUBJECTIVE: The patient said he is doing better. He is making some progress with his therapy. He h as had no shortness of breath, no chest pain other than the chest wall pain from the sternal incision . He says he has a little swelling in his legs, but no more than usual. His appetite is doing good. OBJECTIVE: GENERAL: The patient is sitting up on the side of the bed, eating his breakfast. He is alert, talka tive, looks excellent. Appears in no distress. VITAL SIGNS: Shows a temperature of 97.8, pulse 80, respirations 22, O2 saturation 97% on room air, blood pressure 118/61. His weight is up to 277 from 272. LUNGS: His lungs have excellent breath sounds and are clear. HEART: Regular rate. EXTREMITIES: The little red irritation in his right infraclavicular area at the site where his subcl simran line had been placed looks better, still little red, but the puncture site is healing. The wou nds at the xiphoid region are healing. They look better and are healing in. There is still just a l ittle bit of drainage, but no surrounding redness. These will be continued to be dressed and Bactrob an ointment applied. Lower extremities have trace edema. LABORATORY DATA: His FBS this morning was 91. His hemoglobin A1c is 6.3. ASSESSMENT: 1. Generalized weakness and deconditioning following a prolonged hospitalization at [facility] from 09/30/2017 until 10/25/2017. A. Improved as of 10/27/2017. 2. Hospitalized at [facility] from 09/30/2017 until 10/25/2017 for atrial f ibrillation with rapid ventricular response, congestive heart failure, requiring cavotricuspid isthmu s ablation unsuccessful and cardioversion on 10/14/2017, coronary artery bypass x3 and aortic valve r eplacement with a bioprosthetic valve for severe aortic stenosis and then successful AV claudia ablatio n and biventricular pacemaker implant on 10/20/2017 3. Atrial fibrillation. A. History of paroxysmal atrial fibrillation, historically managed with Multaq. B. Hospitalized on 09/30/2017 for atrial fibrillation with RVR. C. Required cavotricuspid isthmus ablation that was unsuccessful and electric cardioversion on 10/04. D. Status post successful AV claudia ablation and placement of a biventricular pacemaker on 10/20/[address] Johansen, web development manager. E. 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 F. Remains in a regular rhythm with a rate in the 70 and 80s as of 10/27/2017. 4. Coronary artery disease, triple vessel. A. Status post coronary artery bypass x3 with ligation of the left atrial appendage on 10/14/[address] Jim Hernandez along with aortic valve replacement. B. Healing well from the bypass surgery as of 10/27/2017. 5. Severe aortic stenosis. A. Status post aortic valve replacement with a bioprosthetic valve a #25 Magna on 10/14/[address] Jim Hernandez. B. Healing well from his aortic valve replacement, as of 10/27/2017. 6. Acute congestive heart failure. A. Resolved with no evidence of acute congestive heart failure as of 10/25/2017. B. No evidence of acute congestive heart failure as of 10/27/2017. 7. History of ventricular arrhythmias, controlled. 8. Diabetes type 2. A. Insulin requiring. B. Well controlled with hemoglobin A1c of 6.3 and an FBS of 91 as of 10/27/2017. Remaining diagnose s are the same. 9. Rheumatoid arthritis. A. Controlled. 10. Hypertension. 11. Morbid obesity. 14. Obstructive sleep apnea for which he is on CPAP. 15. Venous insufficiency of the lower extremities complicated by stasis dermatitis that is controlle d. 16. Gastroesophageal reflux disease. 17. History of asthma. A. Presently asymptomatic. PLAN: Continue present care. Continue PT and OT. Continue present medicines. Continue present wou nd care. The patient to use CPAP at night.
[2017-10-27] MEDS: Latanoprost 0.005% Ophth Soln 2.5 ml Bottle EA EYE SCH (21:46)
[2017-10-27] MEDS: Pregabalin 50 MG CAP PO SCH (21:47)
[2017-10-27] MEDS: Levemir Flexpen 100 UNITS/ML PEN SC SCH (21:49)
[2017-10-28] MEDS: Acetaminophen/Codeine 30-300mg Tablet PO PRN ×4 (04:05→21:31)
[2017-10-28] MEDS: Cephalexin 500 MG CAP PO SCH ×3 (05:53→17:17)
[2017-10-28] MEDS: Carvedilol 6.25 MG TAB PO SCH ×2 (08:49→17:17)
[2017-10-28] MEDS: Spironolactone 25 MG TAB PO SCH ×2 (08:49→17:17)
[2017-10-28] MEDS: Polyethylene Glycol 3350 17 GM Packet PO SCH (08:49)
[2017-10-28] MEDS: Loratadine 10 MG TAB PO SCH (08:49)
[2017-10-28] MEDS: Losartan 25 MG TAB PO SCH (08:49)
[2017-10-28] MEDS: Multivitamin W/ Minerals 1 TAB PO SCH (08:50)
[2017-10-28] MEDS: Apixaban 5 MG TAB PO SCH ×2 (08:50→21:20)
[2017-10-28] MEDS: Aspirin 81 mg Enteric Coated Tablet PO SCH (08:50)
[2017-10-28] MEDS: Potassium Chloride 10 MEQ TAB PO SCH ×2 (08:50→17:17)
[2017-10-28] MEDS: Furosemide 40 MG TAB PO SCH ×2 (08:50→14:50)
[2017-10-28] MEDS: Folic Acid 1 MG TAB PO SCH (08:50)
[2017-10-28] MEDS: Atorvastatin Calcium 10 MG TAB PO SCH (08:50)
[2017-10-28] MEDS: predniSONE 5 MG TAB PO SCH (08:50)
[2017-10-28] MEDS: Mupirocin 2% Ointment 22 GM Tube TOP SCH (08:51)
[2017-10-28] MEDS: HumaLOG 300 UNITS/3 ML VIAL SC SCH ×3 (08:51→17:16)
--- NOTE | 2017-10-28 12:21 | PRG ---
DATE OF SERVICE: 10/28/2017 SUBJECTIVE: The patient said that he had a restless night. He was just uncomfortable all over. He is better this morning. He did a lot of therapy yesterday. He did not have any particular area hurt ing more than the other, just could not quite get comfortable. He did take a Tylenol #3 and it helpe d a little bit. This morning he is better. He has had no shortness of breath this morning. OBJECTIVE: The patient is sitting up in a chair, he is alert, appears in no acute distress. His vit al signs shows a temperature of 97.8, pulse 82, respirations 18, O2 saturation 98% on room air, blood pressure 118/69. His weight is 275, output was 1700. His lungs were clear. Heart, regular rate. Extremities have trace edema. The wounds in the xiphoid area had minimal redness surrounding, overal l they look better. The wounds on the right infraclavicular area also look better. His FBS this mor opal was 112. ASSESSMENT: 1. Generalized weakness and deconditioning following a prolonged hospitalization at [facility] from 09/30/2017 until 10/25/2017. A. Improved as of 10/28/2017. 2. Hospitalized at [facility] from 09/30/2017 until 10/25/2017 for atrial f ibrillation with rapid ventricular response, congestive heart failure, requiring cavotricuspid isthmu s ablation unsuccessful and cardioversion on 10/14/2017, coronary artery bypass x3 and aortic valve r eplacement with a bioprosthetic valve for severe aortic stenosis and then successful AV claudia ablatio n and biventricular pacemaker implant on 10/20/2017 3. Atrial fibrillation. A. History of paroxysmal atrial fibrillation, historically managed with Multaq. B. Hospitalized on 09/30/2017 for atrial fibrillation with RVR. C. Required cavotricuspid isthmus ablation that was unsuccessful and electric cardioversion on 10/04. D. Status post successful AV claudia ablation and placement of a biventricular pacemaker on 10/20/[address] Johansen, criminal investigator. E. 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 F. Remains in a regular rhythm with a rate in the 70 and 80s as of 10/28/2017. 4. Coronary artery disease, triple vessel. A. Status post coronary artery bypass x3 with ligation of the left atrial appendage on 10/14/[address] Jim Hernandez along with aortic valve replacement. B. Healing well from the bypass surgery as of 10/28/2017. 5. Severe aortic stenosis. A. Status post aortic valve replacement with a bioprosthetic valve a #25 Magna on 10/14/[address] Jim Hernandez. B. Healing well from his aortic valve replacement, as of 10/28/2017. 6. Acute congestive heart failure. A. Resolved with no evidence of acute congestive heart failure as of 10/25/2017. B. No evidence of acute congestive heart failure as of 10/28/2017. 7. History of ventricular arrhythmias, controlled. 8. Diabetes type 2. A. Insulin requiring. B. Well controlled with a hemoglobin A1c of 6.3. C. FBS 112 on the morning of 10/28/2017. 9. Rheumatoid arthritis. A. Controlled. 10. Hypertension. 11. Morbid obesity. 14. Obstructive sleep apnea for which he is on CPAP. 15. Venous insufficiency of the lower extremities complicated by stasis dermatitis that is controlle d. 16. Gastroesophageal reflux disease. 17. History of asthma. A. Presently asymptomatic. PLAN: Continue physical therapy. Continue the wound care to this right infraclavicular area that is improving and the xiphoid area that is improving. The patient has not yet started his CPAP, that ma y be one reason he is more restless at night. His , Diana, is with him this morning, she said she will bring his CPAP up here, she has got it all clean and ready to go.
[2017-10-28] MEDS: Pregabalin 50 MG CAP PO SCH (21:19)
[2017-10-28] MEDS: Latanoprost 0.005% Ophth Soln 2.5 ml Bottle EA EYE SCH (21:20)
[2017-10-28] MEDS: Levemir Flexpen 100 UNITS/ML PEN SC SCH (21:21)
[2017-10-29] MEDS: Cephalexin 500 MG CAP PO SCH ×4 (00:38→17:04)
[2017-10-29] MEDS: Acetaminophen/Codeine 30-300mg Tablet PO PRN ×3 (05:05→19:20)
[2017-10-29] MEDS: Apixaban 5 MG TAB PO SCH ×2 (08:53→20:45)
[2017-10-29] MEDS: Spironolactone 25 MG TAB PO SCH ×2 (08:53→17:04)
[2017-10-29] MEDS: Aspirin 81 mg Enteric Coated Tablet PO SCH (08:53)
[2017-10-29] MEDS: Furosemide 40 MG TAB PO SCH ×2 (08:53→17:04)
[2017-10-29] MEDS: Mupirocin 2% Ointment 22 GM Tube TOP SCH (08:54)
[2017-10-29] MEDS: Potassium Chloride 10 MEQ TAB PO SCH ×2 (08:54→17:04)
[2017-10-29] MEDS: predniSONE 5 MG TAB PO SCH (08:54)
[2017-10-29] MEDS: Multivitamin W/ Minerals 1 TAB PO SCH (08:54)
[2017-10-29] MEDS: Folic Acid 1 MG TAB PO SCH (08:54)
[2017-10-29] MEDS: Losartan 25 MG TAB PO SCH (08:54)
[2017-10-29] MEDS: Carvedilol 6.25 MG TAB PO SCH ×2 (08:54→17:04)
[2017-10-29] MEDS: Loratadine 10 MG TAB PO SCH (08:54)
[2017-10-29] MEDS: Atorvastatin Calcium 10 MG TAB PO SCH (08:54)
[2017-10-29] MEDS: Polyethylene Glycol 3350 17 GM Packet PO SCH (08:55)
[2017-10-29] MEDS: HumaLOG 300 UNITS/3 ML VIAL SC SCH ×3 (08:55→17:05)
--- NOTE | 2017-10-29 20:24 | PRG ---
DATE OF SERVICE: 10/29/2017 SUBJECTIVE: The patient said he had a much better night. He slept good. He did have a CPAP that hi s who brought him to use this and he said he slept better. He did not have the achiness. He is having no shortness of breath. He still has the soreness in the sternal area, but this each day see ms to improve a little. OBJECTIVE: GENERAL APPEARANCE: Patient is sitting up in a bedside chair. He is alert, talkative, looks very co mfortable in no distress. VITAL SIGNS: His temperature is 98, pulse 81, respirations 20, O2 sat 100% on room air, blood pressu re 103/59. LUNGS: Clear. HEART: Regular rate. EXTREMITIES: Have trace edema. LABORATORY DATA: His glucose this morning was 250, but this was postprandial. ASSESSMENT: 1. Generalized weakness and deconditioning following a prolonged hospitalization at [facility] from 09/30/2017 until 10/25/2017. A. Improved as of 10/29/2017. 2. Hospitalized at [facility] from 09/30/2017 until 10/25/2017 for atrial f ibrillation with rapid ventricular response, congestive heart failure, requiring cavotricuspid isthmu s ablation unsuccessful and cardioversion on 10/14/2017, coronary artery bypass x3 and aortic valve r eplacement with a bioprosthetic valve for severe aortic stenosis and then successful AV claudia ablatio n and biventricular pacemaker implant on 10/20/2017 3. Atrial fibrillation. A. History of paroxysmal atrial fibrillation, historically managed with Multaq. B. Hospitalized on 09/30/2017 for atrial fibrillation with RVR. C. Required cavotricuspid isthmus ablation that was unsuccessful and electric cardioversion on 10/04. D. Status post successful AV claudia ablation and placement of a biventricular pacemaker on 10/20/[address] Johansen, funeral car driver. E. 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 F. Remains in a regular rhythm with a rate in the 70 and 80s as of 10/29/2017. 4. Coronary artery disease, triple vessel. A. Status post coronary artery bypass x3 with ligation of the left atrial appendage on 10/14/[address] Jim Hernandez along with aortic valve replacement. B. Healing well from the bypass surgery as of 10/29/2017. 5. Severe aortic stenosis. A. Status post aortic valve replacement with a bioprosthetic valve a #25 Magna on 10/14/[address] Jim Hernandez. B. Healing well from his aortic valve replacement, as of 10/29/2017. 6. Acute congestive heart failure. A. Resolved with no evidence of acute congestive heart failure as of 10/25/2017. B. No evidence of acute congestive heart failure as of 10/29/2017. 7. History of ventricular arrhythmias, controlled. 8. Diabetes type 2. A. Insulin requiring. B. Well controlled with a hemoglobin A1c of 6.3. C. FBS 112 on the morning of 10/28/2017. 9. Rheumatoid arthritis. A. Controlled. 10. Hypertension. 11. Morbid obesity. 14. Obstructive sleep apnea for which he is on CPAP. 15. Venous insufficiency of the lower extremities complicated by stasis dermatitis that is controlle d. 16. Gastroesophageal reflux disease. 17. History of asthma. A. Presently asymptomatic. PLAN: The patient continues to improve. We will continue present care. Continue physical therapy. Continue anticoagulant. The patient will complete his cephalexin in 3 days.
[2017-10-29] MEDS: Latanoprost 0.005% Ophth Soln 2.5 ml Bottle EA EYE SCH (20:45)
[2017-10-29] MEDS: Levemir Flexpen 100 UNITS/ML PEN SC SCH (20:45)
[2017-10-29] MEDS: Pregabalin 50 MG CAP PO SCH (20:46)
[2017-10-30] MEDS: Cephalexin 500 MG CAP PO SCH ×4 (00:16→17:18)
[2017-10-30] MEDS: Acetaminophen/Codeine 30-300mg Tablet PO PRN ×4 (00:16→18:25)
[2017-10-30] MEDS: Potassium Chloride 10 MEQ TAB PO SCH ×2 (09:20→17:18)
[2017-10-30] MEDS: predniSONE 5 MG TAB PO SCH (09:20)
[2017-10-30] MEDS: Atorvastatin Calcium 10 MG TAB PO SCH (09:20)
[2017-10-30] MEDS: Carvedilol 6.25 MG TAB PO SCH ×2 (09:20→17:19)
[2017-10-30] MEDS: Spironolactone 25 MG TAB PO SCH ×2 (09:21→17:18)
[2017-10-30] MEDS: Aspirin 81 mg Enteric Coated Tablet PO SCH (09:21)
[2017-10-30] MEDS: Folic Acid 1 MG TAB PO SCH (09:21)
[2017-10-30] MEDS: Multivitamin W/ Minerals 1 TAB PO SCH (09:21)
[2017-10-30] MEDS: Apixaban 5 MG TAB PO SCH ×2 (09:21→20:57)
[2017-10-30] MEDS: Furosemide 40 MG TAB PO SCH ×2 (09:21→13:33)
[2017-10-30] MEDS: Loratadine 10 MG TAB PO SCH (09:21)
[2017-10-30] MEDS: Losartan 25 MG TAB PO SCH (09:21)
[2017-10-30] MEDS: HumaLOG 300 UNITS/3 ML VIAL SC SCH ×3 (09:22→17:19)
[2017-10-30] MEDS: Mupirocin 2% Ointment 22 GM Tube TOP SCH (09:22)
[2017-10-30] MEDS: Polyethylene Glycol 3350 17 GM Packet PO SCH (09:23)
[2017-10-30] MEDS: Latanoprost 0.005% Ophth Soln 2.5 ml Bottle EA EYE SCH (20:57)
[2017-10-30] MEDS: Levemir Flexpen 100 UNITS/ML PEN SC SCH (20:57)
[2017-10-30] MEDS: Pregabalin 50 MG CAP PO SCH (20:58)
[2017-10-31] MEDS: Acetaminophen/Codeine 30-300mg Tablet PO PRN ×4 (00:45→20:07)
[2017-10-31] MEDS: Cephalexin 500 MG CAP PO SCH ×5 (00:45→23:55)
[2017-10-31 05:34] LABS: Anion Gap 17 mmol/L (10-20); BUN (Urea Nitrogen) 35 mg/dL (8.4-25.7); Calcium 9.3 mg/dL (7.8-10.44); Carbon Dioxide 29 mmol/L (23-31); Chloride 95 mmol/L (98-107); Glucose 109 mg/dL (83-110); Potassium 3.4 mmol/L (3.5-5.1); Sodium 138 mmol/L (136-145)
[2017-10-31 05:37] LABS: #Basophils 0.1 thou/uL (0.0-0.2); #Eosinphils 0.1 thou/uL (0.0-0.7); #Lymphocytes 1.7 thou/uL (1.20-3.40); #Monocytes 0.7 thou/uL (0.11-0.59); #Neutrophils 4.7 thou/uL (1.40-6.50); %Eosinophils 1.7 % (0.0-10.0); %Lymphocytes 23.2 % (21.0-51.0); %Monocytes 10.1 % (0.0-10.0); Hemoglobin 10.4 g/dL (14.0-18.0); Mean Corpuscular HGB CONC 32.5 g/dL (32.0-36.0); Mean Corpuscular Hemoglobin 28.4 pg (27.0-31.0); Mean Corpuscular Volume 87.4 fL (78.0-98.0); Mean Platelet Volume 11.1 fL (7.4-10.4); Platelet Count 188 thou/uL (130-400); RBC Distribution Width 17.1 % (11.5-14.5); Red Blood Cell (RBC) Count 3.66 mill/uL (4.70-6.10); White Blood Cell (WBC) Count 7.3 thou/uL (4.8-10.8)
[2017-10-31 05:50] LABS: Calc. Creatinine Clearance 90 mL/min (70-130); Estimated GFR-MDRD 57
--- NOTE | 2017-10-31 08:44 | PRG ---
DATE OF SERVICE: 10/30/2017 SUBJECTIVE: The patient said he is feeling better. He had a good night sleep. He was very comforta ble. He is using his CPAP. He had been up this morning, had breakfast. Now he was taken back in be d resting. OBJECTIVE: GENERAL APPEARANCE: The patient is alert, talkative, appears comfortable in no distress. VITAL SIGNS: Temp 98, pulse is 81, respirations 20, O2 saturation 97% on room air, blood pressure la st evening 91/50. This morning's reading pending. LUNGS: Clear. HEART: Regular rate. EXTREMITIES: Trace edema. LABORATORY DATA: His FBS this morning was 110. ASSESSMENT: 1. Generalized weakness and deconditioning following a prolonged hospitalization at [facility] from 09/30/2017 until 10/25/2017. A. Improved as of 10/30/2017. 2. Hospitalized at [facility] from 09/30/2017 until 10/25/2017 for atrial f ibrillation with rapid ventricular response, congestive heart failure, requiring cavotricuspid isthmu s ablation unsuccessful and cardioversion on 10/14/2017, coronary artery bypass x3 and aortic valve r eplacement with a bioprosthetic valve for severe aortic stenosis and then successful AV claudia ablatio n and biventricular pacemaker implant on 10/20/2017 3. Atrial fibrillation. A. History of paroxysmal atrial fibrillation, historically managed with Multaq. B. Hospitalized on 09/30/2017 for atrial fibrillation with RVR. C. Required cavotricuspid isthmus ablation that was unsuccessful and electric cardioversion on 10/04. D. Status post successful AV claudia ablation and placement of a biventricular pacemaker on 10/20/[address] Johansen, rail filler. E. 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 F. Remains in a regular rhythm with a rate in the 70 and 80s as of 10/30/2017. 4. Coronary artery disease, triple vessel. A. Status post coronary artery bypass x3 with ligation of the left atrial appendage on 10/14/[address] Jim Hernandez along with aortic valve replacement. B. Healing well from the bypass surgery as of 10/30/2017. 5. Severe aortic stenosis. A. Status post aortic valve replacement with a bioprosthetic valve a #25 Magna on 10/14/[address] Jim Hernandez. B. Healing well from his aortic valve replacement, as of 10/30/2017. 6. Acute congestive heart failure. A. Resolved with no evidence of acute congestive heart failure as of 10/25/2017. B. No evidence of acute congestive heart failure as of 10/30/2017. 7. History of ventricular arrhythmias, controlled. 8. Diabetes type 2. A. Insulin requiring. B. Well controlled with a hemoglobin A1c of 6.3. C. FBS this morning 110 as of 10/30/2017. 9. Rheumatoid arthritis. A. Controlled. 10. Hypertension. 11. Morbid obesity. 14. Obstructive sleep apnea for which he is on CPAP. 15. Venous insufficiency of the lower extremities complicated by stasis dermatitis that is controlle d. 16. Gastroesophageal reflux disease. 17. History of asthma. A. Presently asymptomatic. PLAN: The patient continues to improve. Continue present care. Continue physical therapy.
--- NOTE | 2017-10-31 08:46 | PRG ---
DATE OF SERVICE: 10/31/2017 SUBJECTIVE: The patient has been doing good. He slept good. He is using his CPAP. He has had no s hortness of breath nor chest pain other than the soreness in the sternal area. OBJECTIVE: The patient is sitting up on the edge the bed. He is alert, talkative, appears very comf ortable and in no distress. His temperature is 98.1, pulse 78, respirations 18, O2 saturation 98% on room air, blood pressure 108/59. Lungs were clear. Heart, regular rate. Extremities have trace ed abdullahi. Incisions over the left lower leg are healing well. Sternal incision is healing well. Pacemak er site in the left upper anterior chest is healing well. The site of the right subclavian catheter, the small puncture wounds and irritation skin are all healing. The area is dry. The dressing will be left off. The xiphoid area of the 3 holes from the chest tubes are healing. There is no drainage . His labs shows an H&H of 10.4 and 31.9, white cell count 7300 with 64% segs, 23% lymphocytes, and platelet count of 188,000. Sodium 138, potassium 3.4, BUN 35, creatinine 1.24. FBS 109. ASSESSMENT: 1. Generalized weakness and deconditioning following a prolonged hospitalization at [facility] from 09/30/2017 until 10/25/2017. A. Improved as of 10/31/2017. 2. Hospitalized at [facility] from 09/30/2017 until 10/25/2017 for atrial f ibrillation with rapid ventricular response, congestive heart failure, requiring cavotricuspid isthmu s ablation unsuccessful and cardioversion on 10/14/2017, coronary artery bypass x3 and aortic valve r eplacement with a bioprosthetic valve for severe aortic stenosis and then successful AV claudia ablatio n and biventricular pacemaker implant on 10/20/2017 3. Atrial fibrillation. A. History of paroxysmal atrial fibrillation, historically managed with Multaq. B. Hospitalized on 09/30/2017 for atrial fibrillation with RVR. C. Required cavotricuspid isthmus ablation that was unsuccessful and electric cardioversion on 10/04. D. Status post successful AV claudia ablation and placement of a biventricular pacemaker on 10/20/[address] Johansen, subway repair supervisor. E. 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 F. Remains in a regular rhythm with a rate in the 70 and 80s as of 10/31/2017. 4. Coronary artery disease, triple vessel. A. Status post coronary artery bypass x3 with ligation of the left atrial appendage on 10/14/[address] Jim Hernandez along with aortic valve replacement. B. Healing well from the bypass surgery as of 10/31/2017. 5. Severe aortic stenosis. A. Status post aortic valve replacement with a bioprosthetic valve a #25 Magna on 10/14/[address] Jim Hernandez. B. Healing well from his aortic valve replacement, as of 10/31/2017. 6. Acute congestive heart failure. A. Resolved with no evidence of acute congestive heart failure as of 10/25/2017. B. No evidence of acute congestive heart failure as of 10/31/2017. 7. History of ventricular arrhythmias, controlled. 8. Diabetes type 2. A. Insulin requiring. B. Well controlled with a hemoglobin A1c of 6.3. C. FBS 109 as of 10/31/2017. 9. Rheumatoid arthritis. A. Controlled. 10. Hypertension. 11. Morbid obesity. 14. Obstructive sleep apnea for which he is on CPAP. 15. Venous insufficiency of the lower extremities complicated by stasis dermatitis that is controlle d. 16. Gastroesophageal reflux disease. 17. History of asthma. A. Presently asymptomatic. PLAN: Continue present care. Will leave the dressing off the right infraclavicular area. This area is healing well. Continue PT, OT. Will increase his potassium to 3 times a day and then recheck a potassium level in 2 days.
[2017-10-31] MEDS: Multivitamin W/ Minerals 1 TAB PO SCH (09:21)
[2017-10-31] MEDS: Loratadine 10 MG TAB PO SCH (09:22)
[2017-10-31] MEDS: Spironolactone 25 MG TAB PO SCH ×2 (09:22→17:10)
[2017-10-31] MEDS: Potassium Chloride 10 MEQ TAB PO SCH ×4 (09:22→20:06)
[2017-10-31] MEDS: Losartan 25 MG TAB PO SCH (09:22)
[2017-10-31] MEDS: Atorvastatin Calcium 10 MG TAB PO SCH (09:22)
[2017-10-31] MEDS: Aspirin 81 mg Enteric Coated Tablet PO SCH (09:22)
[2017-10-31] MEDS: predniSONE 5 MG TAB PO SCH (09:23)
[2017-10-31] MEDS: Furosemide 40 MG TAB PO SCH ×2 (09:23→13:58)
[2017-10-31] MEDS: Apixaban 5 MG TAB PO SCH ×2 (09:23→20:06)
[2017-10-31] MEDS: Folic Acid 1 MG TAB PO SCH (09:23)
[2017-10-31] MEDS: HumaLOG 300 UNITS/3 ML VIAL SC SCH ×3 (09:23→17:11)
[2017-10-31] MEDS: Carvedilol 6.25 MG TAB PO SCH ×2 (09:23→17:10)
[2017-10-31] MEDS: Mupirocin 2% Ointment 22 GM Tube TOP SCH (09:24)
[2017-10-31] MEDS: Polyethylene Glycol 3350 17 GM Packet PO SCH (09:24)
[2017-10-31] MEDS: Methotrexate Sodium 2.5 MG TAB PO SCH (09:29)
[2017-10-31] MEDS: Pregabalin 50 MG CAP PO SCH (20:08)
[2017-10-31] MEDS: Latanoprost 0.005% Ophth Soln 2.5 ml Bottle EA EYE SCH (20:09)
[2017-10-31] MEDS: Levemir Flexpen 100 UNITS/ML PEN SC SCH (21:07)
[2017-11-01] MEDS: Acetaminophen/Codeine 30-300mg Tablet PO PRN ×4 (02:33→20:53)
[2017-11-01] MEDS: Cephalexin 500 MG CAP PO SCH ×3 (05:54→17:08)
[2017-11-01] MEDS: Carvedilol 6.25 MG TAB PO SCH ×2 (08:55→17:08)
[2017-11-01] MEDS: Polyethylene Glycol 3350 17 GM Packet PO SCH (08:55)
[2017-11-01] MEDS: predniSONE 5 MG TAB PO SCH (08:56)
[2017-11-01] MEDS: Loratadine 10 MG TAB PO SCH (08:56)
[2017-11-01] MEDS: Furosemide 40 MG TAB PO SCH ×2 (08:56→15:01)
[2017-11-01] MEDS: Aspirin 81 mg Enteric Coated Tablet PO SCH (08:56)
[2017-11-01] MEDS: Spironolactone 25 MG TAB PO SCH ×2 (08:56→17:08)
[2017-11-01] MEDS: Multivitamin W/ Minerals 1 TAB PO SCH (08:56)
[2017-11-01] MEDS: Losartan 25 MG TAB PO SCH (08:56)
[2017-11-01] MEDS: Apixaban 5 MG TAB PO SCH ×2 (08:56→20:48)
[2017-11-01] MEDS: Potassium Chloride 10 MEQ TAB PO SCH ×3 (08:56→20:47)
[2017-11-01] MEDS: Folic Acid 1 MG TAB PO SCH (08:57)
[2017-11-01] MEDS: Atorvastatin Calcium 10 MG TAB PO SCH (08:57)
[2017-11-01] MEDS ORDERED: (Etanercept [Enbrel] 50 MG) SC SCH (09:00)
[2017-11-01] MEDS: Mupirocin 2% Ointment 22 GM Tube TOP SCH ×2 (09:01→21:02)
[2017-11-01] MEDS: HumaLOG 300 UNITS/3 ML VIAL SC SCH ×3 (09:13→17:08)
--- NOTE | 2017-11-01 10:37 | PRG ---
DATE OF SERVICE: 11/01/2017 SUBJECTIVE: The patient said that he is doing good. He slept good last night. He is feeling better . He is doing more with physical therapy. He has had no problem with his breathing and no chest deejay n other than the sternal pain from the bypass surgery. OBJECTIVE: The patient is sitting up in a bedside chair, smiling, looks very comfortable, in no dist ress. His vital signs shows temperature of 97.8, pulse 84, respirations 22, O2 saturation 97%, blood pressure 101/67. His lungs are clear. Heart, regular rate. Sternal incision healing well. The in cision over the pacemaker in the left upper anterior chest is healing well. Extremities; trace edema . His FBS is 140. ASSESSMENT: 1. Generalized weakness and deconditioning following a prolonged hospitalization at [facility] from 09/30/2017 until 10/25/2017. A. Improved as of 11/01/2017. 2. Hospitalized at [facility] from 09/30/2017 until 10/25/2017 for atrial f ibrillation with rapid ventricular response, congestive heart failure, requiring cavotricuspid isthmu s ablation unsuccessful and cardioversion on 10/14/2017, coronary artery bypass x3 and aortic valve r eplacement with a bioprosthetic valve for severe aortic stenosis and then successful AV claudia ablatio n and biventricular pacemaker implant on 10/20/2017 3. Atrial fibrillation. A. History of paroxysmal atrial fibrillation, historically managed with Multaq. B. Hospitalized on 09/30/2017 for atrial fibrillation with RVR. C. Required cavotricuspid isthmus ablation that was unsuccessful and electric cardioversion on 10/04. D. Status post successful AV claudia ablation and placement of a biventricular pacemaker on 10/20/[address] Johansen, funeral pre need consultant. E. 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 F. Remains in a regular rhythm with a rate in the 70 and 80s as of 11/01/2017. 4. Coronary artery disease, triple vessel. A. Status post coronary artery bypass x3 with ligation of the left atrial appendage on 10/14/[address] Jim Hernandez along with aortic valve replacement. B. Healing well from the bypass surgery as of 11/01/2017. 5. Severe aortic stenosis. A. Status post aortic valve replacement with a bioprosthetic valve a #25 Magna on 10/14/[address] Jim Hernandez. B. Healing well from his aortic valve replacement, as of 11/01/2017. 6. Acute congestive heart failure. A. Resolved with no evidence of acute congestive heart failure as of 10/25/2017. B. No evidence of acute congestive heart failure as of 11/01/2017. 7. History of ventricular arrhythmias, controlled. 8. Diabetes type 2. A. Insulin requiring. B. Well controlled with a hemoglobin A1c of 6.3. C. FBS 140 as of 11/01/2017. 9. Rheumatoid arthritis. A. Controlled. 10. Hypertension. A. Controlled as of 11/01/2017. 11. Morbid obesity. 14. Obstructive sleep apnea for which he is on CPAP. 15. Venous insufficiency of the lower extremities complicated by stasis dermatitis that is controlle d. 16. Gastroesophageal reflux disease. 17. History of asthma. A. Presently asymptomatic. PLAN: The patient continues to make excellent progress. Will continue present care. Continue PT an d OT.
[2017-11-01] MEDS: Pregabalin 50 MG CAP PO SCH (20:47)
[2017-11-01] MEDS: Latanoprost 0.005% Ophth Soln 2.5 ml Bottle EA EYE SCH (20:50)
[2017-11-01] MEDS: Levemir Flexpen 100 UNITS/ML PEN SC SCH (21:00)
[2017-11-02] MEDS: Acetaminophen/Codeine 30-300mg Tablet PO PRN ×4 (03:19→22:36)
[2017-11-02 05:53] LABS: Anion Gap 18 mmol/L (10-20); BUN (Urea Nitrogen) 32 mg/dL (8.4-25.7); Calc. Creatinine Clearance 102 mL/min (70-130); Calcium 9.3 mg/dL (7.8-10.44); Carbon Dioxide 28 mmol/L (23-31); Chloride 101 mmol/L (98-107); Estimated GFR-MDRD 65; Glucose 179 mg/dL (83-110); Sodium 142 mmol/L (136-145)
[2017-11-02] MEDS: Polyethylene Glycol 3350 17 GM Packet PO SCH (08:41)
[2017-11-02] MEDS: Aspirin 81 mg Enteric Coated Tablet PO SCH (08:42)
[2017-11-02] MEDS: Furosemide 40 MG TAB PO SCH ×2 (08:42→15:52)
[2017-11-02] MEDS: Spironolactone 25 MG TAB PO SCH ×2 (08:42→17:13)
[2017-11-02] MEDS: Carvedilol 6.25 MG TAB PO SCH ×2 (08:42→17:13)
[2017-11-02] MEDS: Loratadine 10 MG TAB PO SCH (08:42)
[2017-11-02] MEDS: predniSONE 5 MG TAB PO SCH (08:42)
[2017-11-02] MEDS: Atorvastatin Calcium 10 MG TAB PO SCH (08:42)
[2017-11-02] MEDS: Losartan 25 MG TAB PO SCH (08:43)
[2017-11-02] MEDS: Multivitamin W/ Minerals 1 TAB PO SCH (08:43)
[2017-11-02] MEDS: Mupirocin 2% Ointment 22 GM Tube TOP SCH (08:43)
[2017-11-02] MEDS: Apixaban 5 MG TAB PO SCH ×2 (08:43→20:31)
[2017-11-02] MEDS: HumaLOG 300 UNITS/3 ML VIAL SC SCH ×3 (08:43→17:13)
[2017-11-02] MEDS: Folic Acid 1 MG TAB PO SCH (08:43)
[2017-11-02] MEDS: Potassium Chloride 10 MEQ TAB PO SCH (08:48)
--- NOTE | 2017-11-02 11:20 | PRG ---
DATE OF SERVICE: 11/02/2017 SUBJECTIVE: The patient said that he is doing good this morning. He is feeling better. He has had no shortness of breath. The soreness in his chest is better. The patient says he is using the Tylen ol #3 as needed for pain, usually one works, occasionally he will have two and this seems to be worki ng very well. OBJECTIVE: GENERAL: The patient is alert, appears very comfortable in no distress. VITAL SIGNS: His temperature is 97.6, pulse 69, respirations 20, sats 99 on room air, blood pressure 100/50. His weight is 278. LUNGS: Clear. HEART: Regular rate. EXTREMITIES: Trace edema. CHEST: The wounds in the xiphoid region just below the sternum are better, they are more shallow and there is no surrounding redness and just small amount of yellow discoloration on the dressing. LABORATORY DATA: The patient's FBS this morning was 148. ASSESSMENT: 1. Generalized weakness and deconditioning following a prolonged hospitalization at [facility] from 09/30/2017 until 10/25/2017. A. Improved as of 11/02/2017. 2. Hospitalized at [facility] from 09/30/2017 until 10/25/2017 for atrial f ibrillation with rapid ventricular response, congestive heart failure, requiring cavotricuspid isthmu s ablation unsuccessful and cardioversion on 10/14/2017, coronary artery bypass x3 and aortic valve r eplacement with a bioprosthetic valve for severe aortic stenosis and then successful AV claudia ablatio n and biventricular pacemaker implant on 10/20/2017 3. Atrial fibrillation. A. History of paroxysmal atrial fibrillation, historically managed with Multaq. B. Hospitalized on 09/30/2017 for atrial fibrillation with RVR. C. Required cavotricuspid isthmus ablation that was unsuccessful and electric cardioversion on 10/04. D. Status post successful AV claudia ablation and placement of a biventricular pacemaker on 10/20/[address] Johansen, head concierge. E. 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 F. Remains in a regular rhythm with a rate in the 70 and 80s as of 11/02/2017. 4. Coronary artery disease, triple vessel. A. Status post coronary artery bypass x3 with ligation of the left atrial appendage on 10/14/[address] Jim Hernandez along with aortic valve replacement. B. Healing well from the bypass surgery as of 11/02/2017. 5. Severe aortic stenosis. A. Status post aortic valve replacement with a bioprosthetic valve a #25 Magna on 10/14/[address] Jim Hernandez. B. Healing well from his aortic valve replacement, as of 11/02/2017. 6. Acute congestive heart failure. A. Resolved with no evidence of acute congestive heart failure as of 10/25/2017. B. No evidence of acute congestive heart failure as of 11/02/2017. 7. History of ventricular arrhythmias, controlled. 8. Diabetes type 2. A. Insulin requiring. B. Well controlled with a hemoglobin A1c of 6.3. C. FBS was 148 as of 11/02/2017. 9. Rheumatoid arthritis. A. Controlled. 10. Hypertension. A. Controlled as of 11/01/2017. 11. Morbid obesity. 14. Obstructive sleep apnea for which he is on CPAP. 15. Venous insufficiency of the lower extremities complicated by stasis dermatitis that is controlle d. 16. Gastroesophageal reflux disease. 17. History of asthma. A. Presently asymptomatic. PLAN: Continue present care. Continue PT and OT.
[2017-11-02] MEDS: Pregabalin 50 MG CAP PO SCH (20:29)
[2017-11-02] MEDS: Latanoprost 0.005% Ophth Soln 2.5 ml Bottle EA EYE SCH (20:31)
[2017-11-02] MEDS: Levemir Flexpen 100 UNITS/ML PEN SC SCH (20:32)
[2017-11-03] MEDS: Acetaminophen/Codeine 30-300mg Tablet PO PRN ×3 (06:05→19:07)
[2017-11-03] MEDS: Polyethylene Glycol 3350 17 GM Packet PO SCH (08:35)
[2017-11-03] MEDS: Atorvastatin Calcium 10 MG TAB PO SCH (08:36)
[2017-11-03] MEDS: predniSONE 5 MG TAB PO SCH (08:37)
[2017-11-03] MEDS: Multivitamin W/ Minerals 1 TAB PO SCH (08:37)
[2017-11-03] MEDS: Furosemide 40 MG TAB PO SCH ×2 (08:37→14:35)
[2017-11-03] MEDS: Loratadine 10 MG TAB PO SCH (08:37)
[2017-11-03] MEDS: Folic Acid 1 MG TAB PO SCH (08:37)
[2017-11-03] MEDS: Carvedilol 6.25 MG TAB PO SCH ×2 (08:37→16:43)
[2017-11-03] MEDS: Spironolactone 25 MG TAB PO SCH ×2 (08:37→16:43)
[2017-11-03] MEDS: Apixaban 5 MG TAB PO SCH ×2 (08:37→20:18)
[2017-11-03] MEDS: Aspirin 81 mg Enteric Coated Tablet PO SCH (08:37)
[2017-11-03] MEDS: Losartan 25 MG TAB PO SCH (08:38)
[2017-11-03] MEDS: HumaLOG 300 UNITS/3 ML VIAL SC SCH ×3 (08:38→16:43)
[2017-11-03] MEDS: Mupirocin 2% Ointment 22 GM Tube TOP SCH (08:39)
[2017-11-03] MEDS: Methotrexate Sodium 2.5 MG TAB PO SCH (08:41)
--- NOTE | 2017-11-03 12:05 | PRG ---
DATE OF SERVICE: 11/03/2017 SUBJECTIVE: The patient said he is doing good this morning. He had a little trouble last night, sle eping. He was uncomfortable, but finally was able to get off to sleep. This morning he feels much b ilia. He has had no shortness of breath. OBJECTIVE: The patient is sitting up in a bedside chair. He is alert, appears comfortable. Temp 98 .1, pulse 80, respirations 20, O2 saturation 97% on room air, blood pressure 104/56, weight 277. Shalom gs are clear. Heart, regular rate. Extremities have trace edema. His FBS this morning was 119. ASSESSMENT: 1. Generalized weakness and deconditioning following a prolonged hospitalization at [facility] from 09/30/2017 until 10/25/2017. A. Improved as of 11/03/2017. 2. Hospitalized at [facility] from 09/30/2017 until 10/25/2017 for atrial f ibrillation with rapid ventricular response, congestive heart failure, requiring cavotricuspid isthmu s ablation unsuccessful and cardioversion on 10/14/2017, coronary artery bypass x3 and aortic valve r eplacement with a bioprosthetic valve for severe aortic stenosis and then successful AV claudia ablatio n and biventricular pacemaker implant on 10/20/2017 3. Atrial fibrillation. A. History of paroxysmal atrial fibrillation, historically managed with Multaq. B. Hospitalized on 09/30/2017 for atrial fibrillation with RVR. C. Required cavotricuspid isthmus ablation that was unsuccessful and electric cardioversion on 10/04. D. Status post successful AV claudia ablation and placement of a biventricular pacemaker on 10/20/[address] Johansen, aging department supervisor. E. 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 F. Remains in a regular rhythm with a rate in the 70 and 80s as of 11/03/2017. 4. Coronary artery disease, triple vessel. A. Status post coronary artery bypass x3 with ligation of the left atrial appendage on 10/14/[address] Jim Hernandez along with aortic valve replacement. B. Healing well from the bypass surgery as of 11/03/2017. 5. Severe aortic stenosis. A. Status post aortic valve replacement with a bioprosthetic valve a #25 Magna on 10/14/[address] Jim Hernandez. B. Healing well from his aortic valve replacement, as of 11/03/2017. 6. Acute congestive heart failure. A. Resolved with no evidence of acute congestive heart failure as of 10/25/2017. B. No evidence of acute congestive heart failure as of 11/03/2017. 7. History of ventricular arrhythmias, controlled. 8. Diabetes type 2. A. Insulin requiring. B. Well controlled with a hemoglobin A1c of 6.3. C. FBS 119 as of 11/03/2017. 9. Rheumatoid arthritis. A. Controlled. 10. Hypertension. A. Controlled as of 11/01/2017. 11. Morbid obesity. 14. Obstructive sleep apnea for which he is on CPAP. 15. Venous insufficiency of the lower extremities complicated by stasis dermatitis that is controlle d. 16. Gastroesophageal reflux disease. 17. History of asthma. A. Presently asymptomatic. PLAN: Continue present care. Continue PT/INR. The patient may uses Tylenol #3 one or two every 6 h ours if needed. Continue CPAP at night.
[2017-11-03] MEDS: Latanoprost 0.005% Ophth Soln 2.5 ml Bottle EA EYE SCH (20:18)
[2017-11-03] MEDS: Levemir Flexpen 100 UNITS/ML PEN SC SCH (20:18)
[2017-11-03] MEDS: Pregabalin 50 MG CAP PO SCH (20:21)
[2017-11-04] MEDS: Acetaminophen/Codeine 30-300mg Tablet PO PRN ×3 (02:02→20:34)
[2017-11-04 05:52] LABS: Anion Gap 12 mmol/L (10-20); BUN (Urea Nitrogen) 31 mg/dL (8.4-25.7); Calc. Creatinine Clearance 92 mL/min (70-130); Carbon Dioxide 31 mmol/L (23-31); Chloride 101 mmol/L (98-107); Estimated GFR-MDRD 58; Glucose 126 mg/dL (83-110); Potassium 4.3 mmol/L (3.5-5.1); Sodium 140 mmol/L (136-145)
[2017-11-04] MEDS: Spironolactone 25 MG TAB PO SCH ×2 (08:13→16:59)
[2017-11-04] MEDS: Carvedilol 6.25 MG TAB PO SCH ×2 (08:14→16:59)
[2017-11-04] MEDS: Loratadine 10 MG TAB PO SCH (08:14)
[2017-11-04] MEDS: Furosemide 40 MG TAB PO SCH ×2 (08:14→13:08)
[2017-11-04] MEDS: Atorvastatin Calcium 10 MG TAB PO SCH (08:14)
[2017-11-04] MEDS: Multivitamin W/ Minerals 1 TAB PO SCH (08:14)
[2017-11-04] MEDS: Apixaban 5 MG TAB PO SCH ×2 (08:14→20:25)
[2017-11-04] MEDS: Aspirin 81 mg Enteric Coated Tablet PO SCH (08:14)
[2017-11-04] MEDS: Losartan 25 MG TAB PO SCH (08:14)
[2017-11-04] MEDS: Polyethylene Glycol 3350 17 GM Packet PO SCH (08:15)
[2017-11-04] MEDS: Folic Acid 1 MG TAB PO SCH (08:15)
[2017-11-04] MEDS: HumaLOG 300 UNITS/3 ML VIAL SC SCH ×3 (08:15→16:59)
[2017-11-04] MEDS: predniSONE 5 MG TAB PO SCH (08:15)
[2017-11-04] MEDS: Mupirocin 2% Ointment 22 GM Tube TOP SCH (08:15)
--- NOTE | 2017-11-04 12:33 | PRG ---
DATE OF SERVICE: 11/04/2017 SUBJECTIVE: The patient said he is doing good this morning. He said physical therapy has been worki ng with him pretty hard. He has already been out this morning working with them and he has had break fast, now he is lying down for a rest. He still has the pain last night that was much better. He is using the Tylenol #3 one or two at a time if needed and he said this does help. He is not wanting t o add anything more at this point. He seems to think the pain is reasonably managed. OBJECTIVE: The patient is lying in bed, looks comfortable. Vital signs show temperature 97.8, pulse 80, respirations 18, O2 sat 97% on room air, blood pressure 111/67. His weight is 279. Lungs were clear. Heart, regular rate. Wounds on the epigastric area are gradually healing. They still are op en with no surrounding redness. Extremities; trace edema. His FBS this morning 125. Sodium 140, po tassium 4.3, BUN 31, creatinine 1.2, GFR 58. ASSESSMENT: 1. Generalized weakness and deconditioning following a prolonged hospitalization at [facility] from 09/30/2017 until 10/25/2017. A. Improved as of 11/04/2017. 2. Hospitalized at [facility] from 09/30/2017 until 10/25/2017 for atrial f ibrillation with rapid ventricular response, congestive heart failure, requiring cavotricuspid isthmu s ablation unsuccessful and cardioversion on 10/14/2017, coronary artery bypass x3 and aortic valve r eplacement with a bioprosthetic valve for severe aortic stenosis and then successful AV claudia ablatio n and biventricular pacemaker implant on 10/20/2017 3. Atrial fibrillation. A. History of paroxysmal atrial fibrillation, historically managed with Multaq. B. Hospitalized on 09/30/2017 for atrial fibrillation with RVR. C. Required cavotricuspid isthmus ablation that was unsuccessful and electric cardioversion on 10/04. D. Status post successful AV claudia ablation and placement of a biventricular pacemaker on 10/20/[address] Johansen, research professor of biostatistics. E. 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 F. Remains in a regular rhythm with a rate in the 70 and 80s as of 11/04/2017. 4. Coronary artery disease, triple vessel. A. Status post coronary artery bypass x3 with ligation of the left atrial appendage on 10/14/[address] Jim Hernandez along with aortic valve replacement. B. Healing well from the bypass surgery as of 11/04/2017. 5. Severe aortic stenosis. A. Status post aortic valve replacement with a bioprosthetic valve a #25 Magna on 10/14/[address] Jim Hernandez. B. Healing well from his aortic valve replacement, as of 11/04/2017. 6. Acute congestive heart failure. A. Resolved with no evidence of acute congestive heart failure as of 10/25/2017. B. No evidence of acute congestive heart failure as of 11/04/2017. 7. History of ventricular arrhythmias, controlled. 8. Diabetes type 2. A. Insulin requiring. B. Well controlled with a hemoglobin A1c of 6.3. C. FBS 125 on 11/04/2017. 9. Rheumatoid arthritis. A. Controlled. 10. Hypertension. A. Controlled as of 11/04/2017. 11. Morbid obesity. 14. Obstructive sleep apnea for which he is on CPAP. 15. Venous insufficiency of the lower extremities complicated by stasis dermatitis that is controlle d. 16. Gastroesophageal reflux disease. 17. History of asthma. A. Presently asymptomatic. PLAN: The patient is making gradual progress. We will continue PT and OT. Continue present medicat ions.
[2017-11-04] MEDS: Levemir Flexpen 100 UNITS/ML PEN SC SCH (20:24)
[2017-11-04] MEDS: Latanoprost 0.005% Ophth Soln 2.5 ml Bottle EA EYE SCH (20:25)
[2017-11-04] MEDS: Pregabalin 50 MG CAP PO SCH (20:27)
[2017-11-05] MEDS: Acetaminophen/Codeine 30-300mg Tablet PO PRN ×5 (02:34→22:12)
[2017-11-05] MEDS: Aspirin 81 mg Enteric Coated Tablet PO SCH (07:59)
[2017-11-05] MEDS: predniSONE 5 MG TAB PO SCH (07:59)
[2017-11-05] MEDS: Multivitamin W/ Minerals 1 TAB PO SCH (07:59)
[2017-11-05] MEDS: Loratadine 10 MG TAB PO SCH (07:59)
[2017-11-05] MEDS: Losartan 25 MG TAB PO SCH (07:59)
[2017-11-05] MEDS: Apixaban 5 MG TAB PO SCH ×2 (08:00→20:29)
[2017-11-05] MEDS: Polyethylene Glycol 3350 17 GM Packet PO SCH (08:00)
[2017-11-05] MEDS: Furosemide 40 MG TAB PO SCH ×2 (08:00→14:16)
[2017-11-05] MEDS: Carvedilol 6.25 MG TAB PO SCH ×2 (08:00→16:45)
[2017-11-05] MEDS: Spironolactone 25 MG TAB PO SCH ×2 (08:00→16:45)
[2017-11-05] MEDS: Atorvastatin Calcium 10 MG TAB PO SCH (08:00)
[2017-11-05] MEDS: Folic Acid 1 MG TAB PO SCH (08:00)
[2017-11-05] MEDS: HumaLOG 300 UNITS/3 ML VIAL SC SCH ×3 (08:01→16:45)
[2017-11-05] MEDS: Mupirocin 2% Ointment 22 GM Tube TOP SCH (08:03)
[2017-11-05] MEDS ORDERED: Acetaminophen/Codeine 30-300mg Tablet PO PRN (08:29)
--- NOTE | 2017-11-05 14:56 | PRG ---
DATE OF SERVICE: 11/05/2017 SUBJECTIVE: The patient says he is doing good this morning. He still has some trouble at night time . He gets a little restless and uncomfortable. The Tylenol #3 does help, but the 6-hour interval is too long, and at times, during the night, he is wanting the medicine prior to the 6-hour interval. This will be reduced to 4-hour intervals, which sounds as if he is using this primarily in the nightt garrick. Otherwise, he thinks he is doing well. OBJECTIVE: The patient is sitting up, eating his breakfast. He is alert, appears comfortable, in no distress. Temp 98.2, pulse 82, respirations 18, O2 saturation 98% on room air, blood pressure 105/6 8. His weight is 280. Lungs are clear. Heart, regular rate. Lower extremities, trace edema. ASSESSMENT: 1. Generalized weakness and deconditioning following a prolonged hospitalization at [facility] from 09/30/2017 until 10/25/2017. A. Improved as of 11/05/2017. 2. Hospitalized at [facility] from 09/30/2017 until 10/25/2017 for atrial f ibrillation with rapid ventricular response, congestive heart failure, requiring cavotricuspid isthmu s ablation unsuccessful and cardioversion on 10/14/2017, coronary artery bypass x3 and aortic valve r eplacement with a bioprosthetic valve for severe aortic stenosis and then successful AV claudia ablatio n and biventricular pacemaker implant on 10/20/2017 3. Atrial fibrillation. A. History of paroxysmal atrial fibrillation, historically managed with Multaq. B. Hospitalized on 09/30/2017 for atrial fibrillation with RVR. C. Required cavotricuspid isthmus ablation that was unsuccessful and electric cardioversion on 10/04. D. Status post successful AV claudia ablation and placement of a biventricular pacemaker on 10/20/[address] Johansen, stain remover. E. 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 F. Remains in a regular rhythm with a rate in the 70 and 80s as of 11/05/2017. 4. Coronary artery disease, triple vessel. A. Status post coronary artery bypass x3 with ligation of the left atrial appendage on 10/14/[address] Jim Hernandez along with aortic valve replacement. B. Healing well from the bypass surgery as of 11/05/2017. 5. Severe aortic stenosis. A. Status post aortic valve replacement with a bioprosthetic valve a #25 Magna on 10/14/[address] Jim Hernandez. B. Healing well from his aortic valve replacement, as of 11/05/2017. 6. Acute congestive heart failure. A. Resolved with no evidence of acute congestive heart failure as of 10/25/2017. B. No evidence of acute congestive heart failure as of 11/05/2017. 7. History of ventricular arrhythmias, controlled. 8. Diabetes type 2. A. Insulin requiring. B. Well controlled with a hemoglobin A1c of 6.3. C. FBS 135, as of 11/05/2017. 9. Rheumatoid arthritis. A. Controlled. 10. Hypertension. A. Controlled as of 11/04/2017. 11. Morbid obesity. 14. Obstructive sleep apnea for which he is on CPAP. 15. Venous insufficiency of the lower extremities complicated by stasis dermatitis that is controlle d. 16. Gastroesophageal reflux disease. 17. History of asthma. A. Presently asymptomatic. PLAN: Continue PT/OT. We will change the Tylenol #3 to 1 to 2 every 4 hours if needed for pain. Th is primarily is needed occasionally at night time.
[2017-11-05] MEDS: Pregabalin 50 MG CAP PO SCH (20:28)
[2017-11-05] MEDS: Levemir Flexpen 100 UNITS/ML PEN SC SCH (20:29)
[2017-11-05] MEDS: Latanoprost 0.005% Ophth Soln 2.5 ml Bottle EA EYE SCH (20:30)
[2017-11-06] MEDS: Acetaminophen/Codeine 30-300mg Tablet PO PRN ×5 (03:34→20:32)
[2017-11-06] MEDS: Polyethylene Glycol 3350 17 GM Packet PO SCH (08:01)
[2017-11-06] MEDS: Mupirocin 2% Ointment 22 GM Tube TOP SCH (08:01)
[2017-11-06] MEDS: Furosemide 40 MG TAB PO SCH ×2 (08:02→15:32)
[2017-11-06] MEDS: Carvedilol 6.25 MG TAB PO SCH ×2 (08:02→16:59)
[2017-11-06] MEDS: Multivitamin W/ Minerals 1 TAB PO SCH (08:02)
[2017-11-06] MEDS: Loratadine 10 MG TAB PO SCH (08:02)
[2017-11-06] MEDS: Spironolactone 25 MG TAB PO SCH ×2 (08:02→16:59)
[2017-11-06] MEDS: Atorvastatin Calcium 10 MG TAB PO SCH (08:02)
[2017-11-06] MEDS: Folic Acid 1 MG TAB PO SCH (08:02)
[2017-11-06] MEDS: predniSONE 5 MG TAB PO SCH (08:02)
[2017-11-06] MEDS: Losartan 25 MG TAB PO SCH (08:02)
[2017-11-06] MEDS: Apixaban 5 MG TAB PO SCH ×2 (08:03→20:27)
[2017-11-06] MEDS: Aspirin 81 mg Enteric Coated Tablet PO SCH (08:03)
[2017-11-06] MEDS: HumaLOG 300 UNITS/3 ML VIAL SC SCH ×3 (08:04→17:00)
--- NOTE | 2017-11-06 15:30 | PRG ---
DATE OF SERVICE: 11/06/2017 SUBJECTIVE: The patient said he is doing good. He said he had a much better night. Change in the i nterval of the Tylenol 3 down to every 4 hours if needed instead of every 6, has really helped him at night. He says he still has a lot of soreness in the night in sternal area of his chest. This seem ed to work very well for him with the opportunity to have medication at 4-hour intervals needed. He has had no breathing trouble. His appetite has remained good. OBJECTIVE: GENERAL APPEARANCE: The patient is alert, appears in no distress. VITAL SIGNS: Shows temperature of 97.6, pulse 84, respirations 20, O2 sat 99% on room air, blood pre ssure 124/77. His weight is 281. LUNGS: Clear. HEART: Regular rate. Incision over the pacemaker in the left upper anterior chest is healing well. The puncture sites for the thoracostomy tubes in the epigastric area is improving and gradually heal ing. EXTREMITIES: Have trace edema. There is small skin tear on the right lower leg that is dressed. LABORATORY DATA: His FBS pending. ASSESSMENT: 1. Generalized weakness and deconditioning following a prolonged hospitalization at [facility] from 09/30/2017 until 10/25/2017. A. Improved as of 11/06/2017. 2. Hospitalized at [facility] from 09/30/2017 until 10/25/2017 for atrial f ibrillation with rapid ventricular response, congestive heart failure, requiring cavotricuspid isthmu s ablation unsuccessful and cardioversion on 10/14/2017, coronary artery bypass x3 and aortic valve r eplacement with a bioprosthetic valve for severe aortic stenosis and then successful AV claudia ablatio n and biventricular pacemaker implant on 10/20/2017 3. Atrial fibrillation. A. History of paroxysmal atrial fibrillation, historically managed with Multaq. B. Hospitalized on 09/30/2017 for atrial fibrillation with RVR. C. Required cavotricuspid isthmus ablation that was unsuccessful and electric cardioversion on 10/04. D. Status post successful AV claudia ablation and placement of a biventricular pacemaker on 10/20/[address] Johansen, city bailiff. E. 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 F. Remains in a regular rhythm with a rate in the 70 and 80s as of 11/06/2017. 4. Coronary artery disease, triple vessel. A. Status post coronary artery bypass x3 with ligation of the left atrial appendage on 10/14/[address] Jim Hernandez along with aortic valve replacement. B. Healing well from the bypass surgery as of 11/06/2017. 5. Severe aortic stenosis. A. Status post aortic valve replacement with a bioprosthetic valve a #25 Magna on 10/14/[address] Jim Hernandez. B. Healing well from his aortic valve replacement, as of 11/06/2017. 6. Acute congestive heart failure. A. Resolved with no evidence of acute congestive heart failure as of 10/25/2017. B. No evidence of acute congestive heart failure as of 11/05/2017. 7. History of ventricular arrhythmias, controlled. 8. Diabetes type 2. A. Insulin requiring. B. Well controlled with a hemoglobin A1c of 6.3. C. FBS 135, as of 11/05/2017. 9. Rheumatoid arthritis. A. Controlled. 10. Hypertension. A. Controlled as of 11/05/2017. 11. Morbid obesity. 14. Obstructive sleep apnea for which he is on CPAP. 15. Venous insufficiency of the lower extremities complicated by stasis dermatitis that is controlle d. 16. Gastroesophageal reflux disease. 17. History of asthma. A. Presently asymptomatic. PLAN: Continue PT. The patient's pain seemed be much better, may had at nighttime with a change in dosing interval to every 4 hours if needed. He primarily using this for the soreness of the sternal area from the recent surgery. Continue present management.
[2017-11-06] MEDS: Latanoprost 0.005% Ophth Soln 2.5 ml Bottle EA EYE SCH (20:27)
[2017-11-06] MEDS: Levemir Flexpen 100 UNITS/ML PEN SC SCH (20:28)
[2017-11-06] MEDS: Pregabalin 50 MG CAP PO SCH (20:30)
[2017-11-07] MEDS: Acetaminophen/Codeine 30-300mg Tablet PO PRN ×4 (01:12→20:42)
[2017-11-07] MEDS: Polyethylene Glycol 3350 17 GM Packet PO SCH (08:30)
[2017-11-07] MEDS: Aspirin 81 mg Enteric Coated Tablet PO SCH (08:31)
[2017-11-07] MEDS: Spironolactone 25 MG TAB PO SCH ×2 (08:31→16:35)
[2017-11-07] MEDS: Apixaban 5 MG TAB PO SCH ×2 (08:32→20:41)
[2017-11-07] MEDS: Loratadine 10 MG TAB PO SCH (08:32)
[2017-11-07] MEDS: Folic Acid 1 MG TAB PO SCH (08:32)
[2017-11-07] MEDS: Furosemide 40 MG TAB PO SCH ×2 (08:32→14:06)
[2017-11-07] MEDS: Carvedilol 6.25 MG TAB PO SCH ×2 (08:32→16:35)
[2017-11-07] MEDS: predniSONE 5 MG TAB PO SCH (08:32)
[2017-11-07] MEDS: Losartan 25 MG TAB PO SCH (08:32)
[2017-11-07] MEDS: Multivitamin W/ Minerals 1 TAB PO SCH (08:33)
[2017-11-07] MEDS: HumaLOG 300 UNITS/3 ML VIAL SC SCH ×3 (08:33→16:34)
[2017-11-07] MEDS: Atorvastatin Calcium 10 MG TAB PO SCH (08:36)
[2017-11-07] MEDS: Methotrexate Sodium 2.5 MG TAB PO SCH (08:39)
[2017-11-07] MEDS: Mupirocin 2% Ointment 22 GM Tube TOP SCH (08:44)
[2017-11-07] MEDS: (Etanercept [Enbrel] 50 MG) SC SCH (12:02)
[2017-11-07] MEDS: Latanoprost 0.005% Ophth Soln 2.5 ml Bottle EA EYE SCH (20:40)
[2017-11-07] MEDS: Pregabalin 50 MG CAP PO SCH (20:45)
[2017-11-07] MEDS: Levemir Flexpen 100 UNITS/ML PEN SC SCH (20:46)
[2017-11-08] MEDS: Acetaminophen/Codeine 30-300mg Tablet PO PRN ×3 (01:55→21:00)
[2017-11-08 05:34] LABS: BUN (Urea Nitrogen) 22 mg/dL (8.4-25.7); Calc. Creatinine Clearance 86 mL/min (70-130); Carbon Dioxide 36 mmol/L (23-31); Chloride 101 mmol/L (98-107); Estimated GFR-MDRD 52; Glucose 141 mg/dL (83-110); Potassium 4.4 mmol/L (3.5-5.1); Sodium 140 mmol/L (136-145)
[2017-11-08 05:36] LABS: Anion Gap 7 mmol/L (10-20)
[2017-11-08 05:55] LABS: Band 1 % (5-11); Eosinophils 2 % (0-10); Hemoglobin 9.7 g/dL (14.0-18.0); Lymphocytes 19 % (21-51); MDiff Complete? YES; Mean Corpuscular HGB CONC 32.3 g/dL (32.0-36.0); Mean Corpuscular Hemoglobin 28.4 pg (27.0-31.0); Mean Corpuscular Volume 87.9 fL (78.0-98.0); Mean Platelet Volume 10.4 fL (7.4-10.4); Monocytes 9 % (0-10); Neutrophil 64 % (42-75); PLT Morphology Comment Appears Adequate; Platelet Count 160 thou/uL (130-400); RBC Distribution Width 17.3 % (11.5-14.5); RBC Morphology Normal; Reactive Lymphocytes 5 % (0-10); Red Blood Cell (RBC) Count 3.41 mill/uL (4.70-6.10); White Blood Cell (WBC) Count 5.5 thou/uL (4.8-10.8)
[2017-11-08] MEDS: Polyethylene Glycol 3350 17 GM Packet PO SCH (08:43)
[2017-11-08] MEDS: Atorvastatin Calcium 10 MG TAB PO SCH (08:45)
[2017-11-08] MEDS: Carvedilol 6.25 MG TAB PO SCH ×2 (08:45→16:40)
[2017-11-08] MEDS: Apixaban 5 MG TAB PO SCH ×2 (08:45→20:59)
[2017-11-08] MEDS: Aspirin 81 mg Enteric Coated Tablet PO SCH (08:45)
[2017-11-08] MEDS: Multivitamin W/ Minerals 1 TAB PO SCH (08:45)
[2017-11-08] MEDS: Folic Acid 1 MG TAB PO SCH (08:45)
[2017-11-08] MEDS: Loratadine 10 MG TAB PO SCH (08:45)
[2017-11-08] MEDS: Spironolactone 25 MG TAB PO SCH ×2 (08:45→16:40)
[2017-11-08] MEDS: Furosemide 40 MG TAB PO SCH ×2 (08:45→13:28)
[2017-11-08] MEDS: Losartan 25 MG TAB PO SCH (08:46)
[2017-11-08] MEDS: predniSONE 5 MG TAB PO SCH (08:46)
[2017-11-08] MEDS: Mupirocin 2% Ointment 22 GM Tube TOP SCH (08:46)
[2017-11-08] MEDS: HumaLOG 300 UNITS/3 ML VIAL SC SCH ×3 (08:48→16:40)
--- NOTE | 2017-11-08 11:42 | PRG ---
DATE OF SERVICE: 11/08/2017 SUBJECTIVE: The patient said he is doing better. He had a good night. He woke up at 3 and had to t ely a pain medicine, but then went right back to sleep. He is making progress with his therapy. He is working on the NuStep, working his legs, but does not use the arm since it seems to irritate the s oreness in the sternal area. He has had no shortness of breath. Overall, he thinks he is doing bett er. OBJECTIVE: The patient is sitting up on the NuStep working his legs on the pedals. He is alert, jeremi ears comfortable in no distress. Temp 97.6, pulse 81, respirations 20, O2 sat 100% on room air, bloo d pressure 111/62. His weight is 283. His lungs are clear. Heart, regular rate. Extremities have trace edema. Lab; H&H is 9.7 and 30, white cell count 5500 with 64% segs, 19% lymphocytes, and platelet count of 1 60. Sodium 140, potassium 4.4, BUN 22, creatinine 1.33, GFR 52. FBS 141. ASSESSMENT: 1. Generalized weakness and deconditioning following a prolonged hospitalization at [facility] from 09/30/2017 until 10/25/2017. A. Improved as of 11/08/2017. 2. Hospitalized at [facility] from 09/30/2017 until 10/25/2017 for atrial f ibrillation with rapid ventricular response, congestive heart failure, requiring cavotricuspid isthmu s ablation unsuccessful and cardioversion on 10/14/2017, coronary artery bypass x3 and aortic valve r eplacement with a bioprosthetic valve for severe aortic stenosis and then successful AV claudia ablatio n and biventricular pacemaker implant on 10/20/2017 3. Atrial fibrillation. A. History of paroxysmal atrial fibrillation, historically managed with Multaq. B. Hospitalized on 09/30/2017 for atrial fibrillation with RVR. C. Required cavotricuspid isthmus ablation that was unsuccessful and electric cardioversion on 10/04. D. Status post successful AV claudia ablation and placement of a biventricular pacemaker on 10/20/[address] Johansen, frame carver spindle. E. 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 F. Remains in a regular rhythm with a rate in the 70 and 80s as of 11/08/2017. 4. Coronary artery disease, triple vessel. A. Status post coronary artery bypass x3 with ligation of the left atrial appendage on 10/14/[address] Jim Hernandez along with aortic valve replacement. B. Healing well from the bypass surgery as of 11/08/2017. 5. Severe aortic stenosis. A. Status post aortic valve replacement with a bioprosthetic valve a #25 Magna on 10/14/[address] Jim Hernandez. B. Healing well from his aortic valve replacement, as of 11/08/2017. 6. Acute congestive heart failure. A. Resolved with no evidence of acute congestive heart failure as of 10/25/2017. B. No evidence of acute congestive heart failure as of 11/08/2017. 7. History of ventricular arrhythmias, controlled. 8. Diabetes type 2. A. Insulin requiring. B. Well controlled with a hemoglobin A1c of 6.3. C. FBS 141 on 11/08/2017, repeated 3 hours later at 7:42 and was 105 as of 11/08/2017. 9. Rheumatoid arthritis. A. Controlled. 10. Hypertension. A. Controlled as of 11/05/2017. 11. Morbid obesity. 14. Obstructive sleep apnea for which he is on CPAP. 15. Venous insufficiency of the lower extremities complicated by stasis dermatitis that is controlle d. 16. Gastroesophageal reflux disease. 17. History of asthma. A. Presently asymptomatic. PLAN: Continue present care. Continue physical therapy.
[2017-11-08] MEDS: Latanoprost 0.005% Ophth Soln 2.5 ml Bottle EA EYE SCH (20:58)
[2017-11-08] MEDS: Pregabalin 50 MG CAP PO SCH (20:59)
[2017-11-08] MEDS: Levemir Flexpen 100 UNITS/ML PEN SC SCH (21:03)
[2017-11-09] MEDS: Acetaminophen/Codeine 30-300mg Tablet PO PRN ×5 (01:25→20:48)
[2017-11-09] MEDS: Losartan 25 MG TAB PO SCH (08:08)
[2017-11-09] MEDS: Apixaban 5 MG TAB PO SCH ×2 (08:08→20:46)
[2017-11-09] MEDS: Furosemide 40 MG TAB PO SCH ×2 (08:08→15:00)
[2017-11-09] MEDS: predniSONE 5 MG TAB PO SCH (08:08)
[2017-11-09] MEDS: Spironolactone 25 MG TAB PO SCH ×2 (08:08→16:36)
[2017-11-09] MEDS: Multivitamin W/ Minerals 1 TAB PO SCH (08:08)
[2017-11-09] MEDS: Carvedilol 6.25 MG TAB PO SCH ×2 (08:08→16:36)
[2017-11-09] MEDS: Folic Acid 1 MG TAB PO SCH (08:08)
[2017-11-09] MEDS: Atorvastatin Calcium 10 MG TAB PO SCH (08:08)
[2017-11-09] MEDS: Aspirin 81 mg Enteric Coated Tablet PO SCH (08:08)
[2017-11-09] MEDS: Polyethylene Glycol 3350 17 GM Packet PO SCH (08:08)
[2017-11-09] MEDS: Loratadine 10 MG TAB PO SCH (08:08)
[2017-11-09] MEDS: Mupirocin 2% Ointment 22 GM Tube TOP SCH (08:09)
[2017-11-09] MEDS: HumaLOG 300 UNITS/3 ML VIAL SC SCH ×3 (08:10→16:36)
[2017-11-09] MEDS ORDERED: Mag-Al Plus 1200 MG/1200 MG/120 MG/30 ML UDCUP PO PRN (20:16)
[2017-11-09] MEDS: Latanoprost 0.005% Ophth Soln 2.5 ml Bottle EA EYE SCH (20:46)
[2017-11-09] MEDS: Pregabalin 50 MG CAP PO SCH (20:47)
[2017-11-09] MEDS: Levemir Flexpen 100 UNITS/ML PEN SC SCH (20:50)
[2017-11-10] MEDS: Acetaminophen/Codeine 30-300mg Tablet PO PRN ×4 (04:41→20:11)
[2017-11-10] MEDS: Spironolactone 25 MG TAB PO SCH ×2 (08:02→16:57)
[2017-11-10] MEDS: Aspirin 81 mg Enteric Coated Tablet PO SCH (08:02)
[2017-11-10] MEDS: Folic Acid 1 MG TAB PO SCH (08:02)
[2017-11-10] MEDS: predniSONE 5 MG TAB PO SCH (08:02)
[2017-11-10] MEDS: Polyethylene Glycol 3350 17 GM Packet PO SCH (08:02)
[2017-11-10] MEDS: Multivitamin W/ Minerals 1 TAB PO SCH (08:02)
[2017-11-10] MEDS: Carvedilol 6.25 MG TAB PO SCH ×2 (08:03→16:57)
[2017-11-10] MEDS: Apixaban 5 MG TAB PO SCH ×2 (08:03→20:13)
[2017-11-10] MEDS: Loratadine 10 MG TAB PO SCH (08:03)
[2017-11-10] MEDS: Atorvastatin Calcium 10 MG TAB PO SCH (08:03)
[2017-11-10] MEDS: Losartan 25 MG TAB PO SCH (08:03)
[2017-11-10] MEDS: Furosemide 40 MG TAB PO SCH ×2 (08:03→15:34)
[2017-11-10] MEDS: Mupirocin 2% Ointment 22 GM Tube TOP SCH (08:04)
[2017-11-10] MEDS: Methotrexate Sodium 2.5 MG TAB PO SCH (08:07)
[2017-11-10] MEDS: HumaLOG 300 UNITS/3 ML VIAL SC SCH ×3 (08:08→16:57)
--- NOTE | 2017-11-10 08:10 | PRG ---
DATE OF SERVICE: 11/09/2017 SUBJECTIVE: The patient said he is doing good. He had a good night. He did not have to take any ex tra pain medicine in the night. He is out this morning working with physical therapy on the NuStep, working his legs. Does not use the arm component as it could still create too much soreness in the s ternal area and this will gradually improve. He has had no shortness of breath. OBJECTIVE: GENERAL: The patient is alert, appears very comfortable in no distress. VITAL SIGNS: His temperature is 97.8, pulse 75, respirations 22, O2 saturation 97%, blood pressure 1 29/59. LUNGS: Clear. HEART: Regular rate. EXTREMITIES: Trace edema. LABORATORY DATA: His FBS this morning was 113. His weight is 285. ASSESSMENT: 1. Generalized weakness and deconditioning following a prolonged hospitalization at [facility] from 09/30/2017 until 10/25/2017. A. Improved as of 11/09/2017. 2. Hospitalized at [facility] from 09/30/2017 until 10/25/2017 for atrial f ibrillation with rapid ventricular response, congestive heart failure, requiring cavotricuspid isthmu s ablation unsuccessful and cardioversion on 10/14/2017, coronary artery bypass x3 and aortic valve r eplacement with a bioprosthetic valve for severe aortic stenosis and then successful AV claudia ablatio n and biventricular pacemaker implant on 10/20/2017 3. Atrial fibrillation. A. History of paroxysmal atrial fibrillation, historically managed with Multaq. B. Hospitalized on 09/30/2017 for atrial fibrillation with RVR. C. Required cavotricuspid isthmus ablation that was unsuccessful and electric cardioversion on 10/04. D. Status post successful AV claudia ablation and placement of a biventricular pacemaker on 10/20/[address] Johansen, film maker. E. 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 F. Remains in a regular rhythm with a rate in the 70 and 80s as of 11/09/2017. 4. Coronary artery disease, triple vessel. A. Status post coronary artery bypass x3 with ligation of the left atrial appendage on 10/14/[address] Jim Hernandez along with aortic valve replacement. B. Healing well from the bypass surgery as of 11/09/2017. 5. Severe aortic stenosis. A. Status post aortic valve replacement with a bioprosthetic valve a #25 Magna on 10/14/[address] Jim Hernandez. B. Healing well from his aortic valve replacement, as of 11/09/2017. 6. Acute congestive heart failure. A. Resolved with no evidence of acute congestive heart failure as of 10/25/2017. B. No evidence of acute congestive heart failure as of 11/09/2017. 7. History of ventricular arrhythmias, controlled. 8. Diabetes type 2. A. Insulin requiring. B. Well controlled with a hemoglobin A1c of 6.3. C. FBS 113 on 11/09/2017. 9. Rheumatoid arthritis. A. Controlled. 10. Hypertension. A. Controlled as of 11/05/2017. 11. Morbid obesity. 14. Obstructive sleep apnea for which he is on CPAP. 15. Venous insufficiency of the lower extremities complicated by stasis dermatitis that is controlle d. 16. Gastroesophageal reflux disease. 17. History of asthma. A. Presently asymptomatic. PLAN: Continue present care. Continue PT, OT.
--- NOTE | 2017-11-10 12:54 | PRG ---
DATE OF SERVICE: 11/10/2017 SUBJECTIVE: The patient said he is doing fine this morning. He is working out on the NuStep. He is starting to use of his arms easily and seems to be tolerating this well. Last night he had had some indigestion secondary he thinks to his supper. He was given an antacid with relief of the symptoms a nd he has had no recurrence. OBJECTIVE: The patient is sitting on the NuStep working his legs and arms. He looks very comfortabl e. Temp 97.2, pulse 82, respirations 20, O2 sat 100% on room air, blood pressure 106/67. His weight is 286. Lungs are clear. Heart, regular rate. The patient has 1+ edema in the lower extremities. FBS this morning 105. ASSESSMENT: 1. Generalized weakness and deconditioning following a prolonged hospitalization at [facility] from 09/30/2017 until 10/25/2017. A. Improved as of 11/10/2017. 2. Hospitalized at [facility] from 09/30/2017 until 10/25/2017 for atrial f ibrillation with rapid ventricular response, congestive heart failure, requiring cavotricuspid isthmu s ablation unsuccessful and cardioversion on 10/14/2017, coronary artery bypass x3 and aortic valve r eplacement with a bioprosthetic valve for severe aortic stenosis and then successful AV claudia ablatio n and biventricular pacemaker implant on 10/20/2017 3. Atrial fibrillation. A. History of paroxysmal atrial fibrillation, historically managed with Multaq. B. Hospitalized on 09/30/2017 for atrial fibrillation with RVR. C. Required cavotricuspid isthmus ablation that was unsuccessful and electric cardioversion on 10/04. D. Status post successful AV claudia ablation and placement of a biventricular pacemaker on 10/20/[address] Johansen, museum guide. E. 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 F. Remains in a regular rhythm with a rate in the 70 and 80s as of 11/10/2017. 4. Coronary artery disease, triple vessel. A. Status post coronary artery bypass x3 with ligation of the left atrial appendage on 10/14/[address] Jim Hernandez along with aortic valve replacement. B. Healing well from the bypass surgery as of 11/10/2017. 5. Severe aortic stenosis. A. Status post aortic valve replacement with a bioprosthetic valve a #25 Magna on 10/14/[address] Jim Hernandez. B. Healing well from his aortic valve replacement, as of 11/10/2017. 6. Acute congestive heart failure. A. Resolved with no evidence of acute congestive heart failure as of 10/25/2017. B. No evidence of acute congestive heart failure as of 11/10/2017. 7. History of ventricular arrhythmias, controlled. 8. Diabetes type 2. A. Insulin requiring. B. Well controlled with a hemoglobin A1c of 6.3. C. Replace with FBS 105 as of 11/10/2017. 9. Rheumatoid arthritis. A. Controlled. 10. Hypertension. A. Controlled as of 11/10/2017. 11. Morbid obesity. 14. Obstructive sleep apnea for which he is on CPAP. 15. Venous insufficiency of the lower extremities complicated by stasis dermatitis that is controlle d. 16. Gastroesophageal reflux disease. 17. History of asthma. A. Presently asymptomatic. PLAN: Continue present care. Continue PT and OT.
[2017-11-10] MEDS: Pregabalin 50 MG CAP PO SCH (20:12)
[2017-11-10] MEDS: Latanoprost 0.005% Ophth Soln 2.5 ml Bottle EA EYE SCH (20:13)
[2017-11-10] MEDS: Levemir Flexpen 100 UNITS/ML PEN SC SCH (20:14)
[2017-11-11] MEDS: Acetaminophen/Codeine 30-300mg Tablet PO PRN ×6 (00:08→23:58)
[2017-11-11 05:30] LABS: Platelet Count 166 thou/uL (130-400)
[2017-11-11] MEDS: Polyethylene Glycol 3350 17 GM Packet PO SCH (07:59)
[2017-11-11] MEDS: Apixaban 5 MG TAB PO SCH ×2 (08:00→19:56)
[2017-11-11] MEDS: Spironolactone 25 MG TAB PO SCH ×2 (08:00→17:04)
[2017-11-11] MEDS: Carvedilol 6.25 MG TAB PO SCH ×2 (08:00→17:04)
[2017-11-11] MEDS: Folic Acid 1 MG TAB PO SCH (08:00)
[2017-11-11] MEDS: Furosemide 40 MG TAB PO SCH ×2 (08:00→14:49)
[2017-11-11] MEDS: Loratadine 10 MG TAB PO SCH (08:00)
[2017-11-11] MEDS: predniSONE 5 MG TAB PO SCH (08:00)
[2017-11-11] MEDS: Aspirin 81 mg Enteric Coated Tablet PO SCH (08:00)
[2017-11-11] MEDS: Losartan 25 MG TAB PO SCH (08:00)
[2017-11-11] MEDS: Atorvastatin Calcium 10 MG TAB PO SCH (08:00)
[2017-11-11] MEDS: Multivitamin W/ Minerals 1 TAB PO SCH (08:00)
[2017-11-11] MEDS: HumaLOG 300 UNITS/3 ML VIAL SC SCH ×3 (08:00→17:04)
[2017-11-11] MEDS: Mupirocin 2% Ointment 22 GM Tube TOP SCH (08:01)
[2017-11-11] MEDS ORDERED: Spironolactone 25 MG TAB PO SCH (10:00)
--- NOTE | 2017-11-11 12:04 | PRG ---
DATE OF SERVICE: 11/11/2017 SUBJECTIVE: The patient said he is feeling good this morning. He has already been to physical therapy. He is started gently to use his upper arms with the exercise machine on the [employer]. He has a little soreness from this, but very tolerable. He did have to take an additional Tylenol #3 during the night, but then slept well and this morning he is feeling fine. He has had no shortness of breath or chest pain. He has been gradually gaining a little weight and having a little more fluid collection on his legs. OBJECTIVE: The patient is sitting up on the side of his bed. He is alert, appears comfortable in no distress. His temp 97.4, pulse 69, respirations 18, O2 saturation 98% on room air, blood pressure 114/68. His weight is 288 from admission weight of 276. His lungs were clear. Heart, regular rate. Extremities: 1+ edema. There is a little skin tear on the right lower leg that has had some serous drainage that is accumulating under the dressing. His H&H is 10 and 30.7, platelet count 166. His creatinine is 1.06, GFR 68. FBS 156. ASSESSMENT: 1. Generalized weakness and deconditioning following a prolonged hospitalization at [facility] from 09/30/2017 until 10/25/2017. A. Improved as of 11/11/2017. 2. Hospitalized at [facility] from 09/30/2017 until for atrial fibrillation with rapid ventricular response, congestive heart failure, requiring cavotricuspid isthmus ablation unsuccessful and cardioversion on 10/14/2017, coronary artery bypass x3 and aortic valve replacement with a bioprosthetic valve for severe aortic stenosis and then successful AV claudia ablation and biventricular pacemaker implant on 10/20/2017 3. Atrial fibrillation. A. History of paroxysmal atrial fibrillation, historically managed with Multaq. B. Hospitalized on 09/30/2017 for atrial fibrillation with RVR. C. Required cavotricuspid isthmus ablation that was unsuccessful and electric cardioversion on 10/04/2017. D. Status post successful AV claudia ablation and placement of a biventricular pacemaker on 10/20/[address] Johansen, thread spooler. E. 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 F. Remains in a regular rhythm with a rate in the 70 and 80s as of 11/11/2017. 4. Coronary artery disease, triple vessel. A. Status post coronary artery bypass x3 with ligation of the left atrial appendage on 10/14/[address] Jim Hernandez along with aortic valve replacement. B. Healing well from the bypass surgery as of 11/11/2017. 5. Severe aortic stenosis. A. Status post aortic valve replacement with a bioprosthetic valve a #25 Magna on 10/14/[address] Jim Hernandez. B. Healing well from his aortic valve replacement, as of 11/11/2017. 6. Acute congestive heart failure. A. Resolved with no evidence of acute congestive heart failure as of 2017. B. No evidence of acute congestive heart failure as of 11/11/2017. 7. History of ventricular arrhythmias, controlled. 8. Diabetes type 2. A. Insulin requiring. B. Well controlled with a hemoglobin A1c of 6.3. C. Replace with FBS 105 as of 11/10/2017. 9. Rheumatoid arthritis. A. Controlled. 10. Hypertension. A. Controlled as of 11/10/2017. 11. Morbid obesity. 14. Obstructive sleep apnea for which he is on CPAP. 15. Venous insufficiency of the lower extremities. A. Complicated by stasis dermatitis that is controlled. B. Increasing edema in the legs with gradual increase in weight as a 2017. 16. Gastroesophageal reflux disease. 17. History of asthma. A. Presently asymptomatic. 18. Anemia. A. Gradually improving with hemoglobin of 10 as of 11/11/2017. 19. Skin tear of the right lower leg with serous drainage. PLAN: Continue PT and OT. We will try increasing the spironolactone to 50 mg b.i.d. and see if this will help some with fluid, wear the knee high support hose. The skin tear on the leg will be to just dressed with Adaptic and gauze. Encourage him to wear knee high support hose. We will try stopping the Lyrica and see if he can tolerate this, this may be contributing some to his peripheral edema. [employer] [facility]
[2017-11-11] MEDS: Levemir Flexpen 100 UNITS/ML PEN SC SCH (19:58)
[2017-11-11] MEDS: Latanoprost 0.005% Ophth Soln 2.5 ml Bottle EA EYE SCH (19:58)
[2017-11-12] MEDS: Acetaminophen/Codeine 30-300mg Tablet PO PRN ×4 (04:18→19:03)
[2017-11-12] MEDS: Polyethylene Glycol 3350 17 GM Packet PO SCH (08:40)
[2017-11-12] MEDS: Multivitamin W/ Minerals 1 TAB PO SCH (08:41)
[2017-11-12] MEDS: Folic Acid 1 MG TAB PO SCH (08:41)
[2017-11-12] MEDS: Loratadine 10 MG TAB PO SCH (08:41)
[2017-11-12] MEDS: Carvedilol 6.25 MG TAB PO SCH ×2 (08:41→17:10)
[2017-11-12] MEDS: predniSONE 5 MG TAB PO SCH (08:41)
[2017-11-12] MEDS: Apixaban 5 MG TAB PO SCH ×2 (08:41→20:27)
[2017-11-12] MEDS: Atorvastatin Calcium 10 MG TAB PO SCH (08:41)
[2017-11-12] MEDS: Spironolactone 25 MG TAB PO SCH ×2 (08:41→17:10)
[2017-11-12] MEDS: Furosemide 40 MG TAB PO SCH ×2 (08:41→13:00)
[2017-11-12] MEDS: Aspirin 81 mg Enteric Coated Tablet PO SCH (08:41)
[2017-11-12] MEDS: Losartan 25 MG TAB PO SCH (08:42)
[2017-11-12] MEDS: HumaLOG 300 UNITS/3 ML VIAL SC SCH ×3 (08:42→17:10)
[2017-11-12] MEDS: Mupirocin 2% Ointment 22 GM Tube TOP SCH (08:42)
[2017-11-12] MEDS: Latanoprost 0.005% Ophth Soln 2.5 ml Bottle EA EYE SCH (20:28)
[2017-11-12] MEDS: Levemir Flexpen 100 UNITS/ML PEN SC SCH (20:30)
[2017-11-13] MEDS: Acetaminophen/Codeine 30-300mg Tablet PO PRN ×6 (00:14→23:44)
[2017-11-13] MEDS: Polyethylene Glycol 3350 17 GM Packet PO SCH (08:39)
[2017-11-13] MEDS: Multivitamin W/ Minerals 1 TAB PO SCH (08:40)
[2017-11-13] MEDS: Spironolactone 25 MG TAB PO SCH ×2 (08:40→16:36)
[2017-11-13] MEDS: Furosemide 40 MG TAB PO SCH ×2 (08:40→13:43)
[2017-11-13] MEDS: Folic Acid 1 MG TAB PO SCH (08:40)
[2017-11-13] MEDS: Aspirin 81 mg Enteric Coated Tablet PO SCH (08:40)
[2017-11-13] MEDS: Atorvastatin Calcium 10 MG TAB PO SCH (08:40)
[2017-11-13] MEDS: Carvedilol 6.25 MG TAB PO SCH ×2 (08:41→16:36)
[2017-11-13] MEDS: predniSONE 5 MG TAB PO SCH (08:41)
[2017-11-13] MEDS: Losartan 25 MG TAB PO SCH (08:41)
[2017-11-13] MEDS: Mupirocin 2% Ointment 22 GM Tube TOP SCH (08:41)
[2017-11-13] MEDS: Loratadine 10 MG TAB PO SCH (08:41)
[2017-11-13] MEDS: Apixaban 5 MG TAB PO SCH ×2 (08:41→20:09)
[2017-11-13] MEDS: HumaLOG 300 UNITS/3 ML VIAL SC SCH ×3 (08:42→16:37)
[2017-11-13] MEDS: Levemir Flexpen 100 UNITS/ML PEN SC SCH (20:09)
[2017-11-13] MEDS: Latanoprost 0.005% Ophth Soln 2.5 ml Bottle EA EYE SCH (20:09)
[2017-11-14] MEDS: Acetaminophen/Codeine 30-300mg Tablet PO PRN ×4 (03:50→19:07)
[2017-11-14 07:28] LABS: #Basophils 0.1 thou/uL (0.0-0.2); #Eosinphils 0.1 thou/uL (0.0-0.7); #Lymphocytes 1.1 thou/uL (1.20-3.40); #Monocytes 0.6 thou/uL (0.11-0.59); #Neutrophils 4.2 thou/uL (1.40-6.50); %Eosinophils 1.2 % (0.0-10.0); %Monocytes 10.2 % (0.0-10.0); %Neutrophils 69.6 % (42.0-75.0); Hemoglobin 10.3 g/dL (14.0-18.0); Mean Corpuscular Hemoglobin 28.3 pg (27.0-31.0); Mean Corpuscular Volume 88.3 fL (78.0-98.0); Mean Platelet Volume 9.4 fL (7.4-10.4); Platelet Count 156 thou/uL (130-400); RBC Distribution Width 16.9 % (11.5-14.5); Red Blood Cell (RBC) Count 3.65 mill/uL (4.70-6.10)
[2017-11-14 07:34] LABS: Anion Gap 12 mmol/L (10-20); BUN (Urea Nitrogen) 17 mg/dL (8.4-25.7); Calc. Creatinine Clearance 111 mL/min (70-130); Calcium 9.1 mg/dL (7.8-10.44); Carbon Dioxide 29 mmol/L (23-31); Chloride 99 mmol/L (98-107); Estimated GFR-MDRD 69; Glucose 134 mg/dL (83-110); Potassium 3.8 mmol/L (3.5-5.1); Sodium 136 mmol/L (136-145)
[2017-11-14] MEDS: Carvedilol 6.25 MG TAB PO SCH ×2 (07:36→17:08)
[2017-11-14] MEDS: HumaLOG 300 UNITS/3 ML VIAL SC SCH ×3 (07:37→17:09)
[2017-11-14] MEDS: Spironolactone 25 MG TAB PO SCH ×2 (07:37→17:08)
[2017-11-14] MEDS: predniSONE 5 MG TAB PO SCH (07:37)
[2017-11-14] MEDS: Furosemide 40 MG TAB PO SCH ×2 (08:00→14:05)
[2017-11-14] MEDS: Aspirin 81 mg Enteric Coated Tablet PO SCH (08:00)
[2017-11-14] MEDS: Apixaban 5 MG TAB PO SCH ×2 (08:00→20:10)
[2017-11-14] MEDS: Multivitamin W/ Minerals 1 TAB PO SCH (08:00)
[2017-11-14] MEDS: Atorvastatin Calcium 10 MG TAB PO SCH (08:00)
[2017-11-14] MEDS: Polyethylene Glycol 3350 17 GM Packet PO SCH (08:00)
[2017-11-14] MEDS: Folic Acid 1 MG TAB PO SCH (08:00)
[2017-11-14] MEDS: Mupirocin 2% Ointment 22 GM Tube TOP SCH (08:01)
[2017-11-14] MEDS: Loratadine 10 MG TAB PO SCH (08:01)
[2017-11-14] MEDS: Losartan 25 MG TAB PO SCH (08:01)
[2017-11-14] MEDS: Methotrexate Sodium 2.5 MG TAB PO SCH ×3 (08:08→12:13)
[2017-11-14] MEDS: (Etanercept [Enbrel] 50 MG) SC SCH (12:08)
--- NOTE | 2017-11-14 15:11 | PRG ---
DATE OF SERVICE: 11/12/2017 SUBJECTIVE: The patient said he had a good night. He woke up around 2 and had to take pain medicine and slept the rest of the night. The patient said his swelling in the legs is better today. He has lost a couple pounds. He is feeling real good this morning. OBJECTIVE: GENERAL: The patient has been up and having his breakfast now, resting back in bed. He is alert, ap pears in no distress, looks very comfortable. VITAL SIGNS: His temp 97.2, pulse 80, respirations 18, O2 saturation 98% on room air, blood pressure 135/62. His weight is down to 286. Urinary output was 1600. LUNGS: Clear. HEART: Regular rate. The wounds on the epigastric area from the chest tubes are all healing and her crusting over. There is no surrounding redness. EXTREMITIES: Trace edema. Skin tear on the right anterior lower leg is transfers and about 2 cm. T here is no surrounding redness and there is no drainage from this, this morning. This will be readdr essed daily with just a small Adaptic overlying the wound and the Mepilex overlying this and then his RAFAEL hose. ASSESSMENT: 1. Generalized weakness and deconditioning following a prolonged hospitalization at [facility] from 09/30/2017 until 10/25/2017. A. Improved as of 11/12/2017. 2. Hospitalized at [facility] from 09/30/2017 until 10/25/2017 for atrial f ibrillation with rapid ventricular response, congestive heart failure, requiring cavotricuspid isthmu s ablation unsuccessful and cardioversion on 10/14/2017, coronary artery bypass x3 and aortic valve r eplacement with a bioprosthetic valve for severe aortic stenosis and then successful AV claudia ablatio n and biventricular pacemaker implant on 10/20/2017 3. Atrial fibrillation. A. History of paroxysmal atrial fibrillation, historically managed with Multaq. B. Hospitalized on 09/30/2017 for atrial fibrillation with RVR. C. Required cavotricuspid isthmus ablation that was unsuccessful and electric cardioversion on 10/04. D. Status post successful AV claudia ablation and placement of a biventricular pacemaker on 10/20/[address] Johansen, campus recruiter. E. 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 F. Remains in a regular rhythm with a rate in the 70 and 80s as of 11/12/2017. 4. Coronary artery disease, triple vessel. A. Status post coronary artery bypass x3 with ligation of the left atrial appendage on 10/14/[address] Jim Hernandez along with aortic valve replacement. B. Healing well from the bypass surgery as of 11/12/2017. 5. Severe aortic stenosis. A. Status post aortic valve replacement with a bioprosthetic valve a #25 Magna on 10/14/[address] Jim Hernandez. B. Healing well from his aortic valve replacement, as of 11/12/2017. 6. Acute congestive heart failure. A. Resolved with no evidence of acute congestive heart failure as of 10/25/2017. B. No evidence of acute congestive heart failure as of 11/12/2017. 7. History of ventricular arrhythmias, controlled. 8. Diabetes type 2. A. Insulin requiring. B. Well controlled with a hemoglobin A1c of 6.3. C. Replace with FBS 105 as of 11/10/2017. 9. Rheumatoid arthritis. A. Controlled. 10. Hypertension. A. Controlled as of 11/12/2017. 11. Morbid obesity. 14. Obstructive sleep apnea for which he is on CPAP. 15. Venous insufficiency of the lower extremities. A. Complicated by stasis dermatitis that is controlled. B. Increasing edema in the legs with gradual increase in weight as a . 16. Gastroesophageal reflux disease. 17. History of asthma. A. Presently asymptomatic. 18. Anemia. A. Gradually improving with hemoglobin of 10 as of 11/11/2017. 19. Skin tear of the left lower leg with serous drainage. A. Healing with no drainage or evidence of infection as of 11/12/2017. PLAN: The wound on the right leg will just be covered with an Adaptic and Mepilex and then he will w ear his hose when he is out of bed. Continue PT, OT. Continue present medicines.
--- NOTE | 2017-11-14 15:15 | PRG ---
DATE OF SERVICE: 11/14/2017 SUBJECTIVE: The patient said he is doing good. He said he still has some swelling in his legs. He has already been up walking with therapy. OBJECTIVE: The patient is taking a break from his long walk, sitting in his wheelchair. He is alert , appears very comfortable and in no distress. Temp 98, pulse 81, respirations 16, O2 sat 99% on rosa m air, blood pressure 124/76. Weight is down a pound to 285. Lungs were clear. Heart, regular rate . Extremities; 1+ edema, stable. Skin tear improved. His H&H is 10.3 and 32.2, white cell count 60 00 with 70% segs, 18% lymphocytes, platelet count 156,000. Sodium 136, potassium 3.8, BUN 17, creati nine 1.04, GFR 69. FBS 119. 5B. Change the date 11/14/2017. ASSESSMENT: 1. Generalized weakness and deconditioning following a prolonged hospitalization at [facility] from 09/30/2017 until 10/25/2017. A. Improved as of 11/14/2017. 2. Hospitalized at [facility] from 09/30/2017 until 10/25/2017 for atrial f ibrillation with rapid ventricular response, congestive heart failure, requiring cavotricuspid isthmu s ablation unsuccessful and cardioversion on 10/14/2017, coronary artery bypass x3 and aortic valve r eplacement with a bioprosthetic valve for severe aortic stenosis and then successful AV claudia ablatio n and biventricular pacemaker implant on 10/20/2017 3. Atrial fibrillation. A. History of paroxysmal atrial fibrillation, historically managed with Multaq. B. Hospitalized on 09/30/2017 for atrial fibrillation with RVR. C. Required cavotricuspid isthmus ablation that was unsuccessful and electric cardioversion on 10/04. D. Status post successful AV claudia ablation and placement of a biventricular pacemaker on 10/20/[address] Johansen, tool room lathe operator. E. 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 F. Remains in a regular rhythm with a rate in the 70 and 80s as of 11/14/2017. 4. Coronary artery disease, triple vessel. A. Status post coronary artery bypass x3 with ligation of the left atrial appendage on 10/14/[address] Jim Hernandez along with aortic valve replacement. B. Healing well from the bypass surgery as of 11/14/2017. 5. Severe aortic stenosis. A. Status post aortic valve replacement with a bioprosthetic valve a #25 Magna on 10/14/[address] Jim Hernandez. B. Healing well from his aortic valve replacement, as of 11/14/2017. 6. Acute congestive heart failure. A. Resolved with no evidence of acute congestive heart failure as of 10/25/2017. B. No evidence of acute congestive heart failure as of 11/14/2017. 7. History of ventricular arrhythmias, controlled. 8. Diabetes type 2. A. Insulin requiring. B. Well controlled with a hemoglobin A1c of 6.3. C. FBS 134 as of 11/14/2017. 9. Rheumatoid arthritis. A. Controlled. 10. Hypertension. A. Controlled as of 11/14/2017. 11. Morbid obesity. 14. Obstructive sleep apnea for which he is on CPAP. 15. Venous insufficiency of the lower extremities. A. Complicated by stasis dermatitis that is controlled. B. Increasing edema in the legs with gradual increase in weight as a . 16. Gastroesophageal reflux disease. 17. History of asthma. A. Presently asymptomatic. 18. Anemia. A. Hemoglobin is up to 10.3 as of 11/14/2017. 19. Skin tear of the left lower leg with serous drainage. A. Improved as of 11/14/2017. PLAN: Continue present care. Continue PT. Encourage the patient to wear his knee high support hose .
[2017-11-14] MEDS: Latanoprost 0.005% Ophth Soln 2.5 ml Bottle EA EYE SCH (20:10)
[2017-11-14] MEDS: Levemir Flexpen 100 UNITS/ML PEN SC SCH (20:11)
[2017-11-15] MEDS: Acetaminophen/Codeine 30-300mg Tablet PO PRN ×5 (00:44→19:32)
[2017-11-15 05:51] VITALS: BMI 37.5
[2017-11-15] MEDS: HumaLOG 300 UNITS/3 ML VIAL SC SCH ×3 (07:56→16:45)
[2017-11-15] MEDS: Polyethylene Glycol 3350 17 GM Packet PO SCH (08:00)
[2017-11-15] MEDS: predniSONE 5 MG TAB PO SCH (08:01)
[2017-11-15] MEDS: Multivitamin W/ Minerals 1 TAB PO SCH (08:01)
[2017-11-15] MEDS: Carvedilol 6.25 MG TAB PO SCH ×2 (08:01→16:45)
[2017-11-15] MEDS: Atorvastatin Calcium 10 MG TAB PO SCH (08:01)
[2017-11-15] MEDS: Aspirin 81 mg Enteric Coated Tablet PO SCH (08:01)
[2017-11-15] MEDS: Loratadine 10 MG TAB PO SCH (08:01)
[2017-11-15] MEDS: Furosemide 40 MG TAB PO SCH ×2 (08:02→15:12)
[2017-11-15] MEDS: Folic Acid 1 MG TAB PO SCH (08:02)
[2017-11-15] MEDS: Losartan 25 MG TAB PO SCH (08:02)
[2017-11-15] MEDS: Spironolactone 25 MG TAB PO SCH ×2 (08:02→16:45)
[2017-11-15] MEDS: Mupirocin 2% Ointment 22 GM Tube TOP SCH (08:02)
[2017-11-15] MEDS: Apixaban 5 MG TAB PO SCH ×2 (08:02→20:41)
--- NOTE | 2017-11-15 12:59 | PRG ---
DATE OF SERVICE: 11/15/2017 SUBJECTIVE: The patient said he is doing better. He is wearing his support hose. This morning he i s walking further with physical therapy. OBJECTIVE: The patient is sitting in the wheelchair, resting after a long walk with his walker and p hysical therapist accompanying him. He appears comfortable and in no distress. His vital signs show a temperature of 97.7, pulse 79, respirations 18, O2 sat 97% on room air, blood pressure 119/65, bola ght is stable at 285. Lungs are clear. Heart, regular rate. Extremities; the patient is wearing hi s knee high support hose. There is still some pitting edema, but a little less. ASSESSMENT: 1. Generalized weakness and deconditioning following a prolonged hospitalization at [facility] from 09/30/2017 until 10/25/2017. A. Improved as of 11/15/2017. 2. Hospitalized at [facility] from 09/30/2017 until 10/25/2017 for atrial f ibrillation with rapid ventricular response, congestive heart failure, requiring cavotricuspid isthmu s ablation unsuccessful and cardioversion on 10/14/2017, coronary artery bypass x3 and aortic valve r eplacement with a bioprosthetic valve for severe aortic stenosis and then successful AV claudia ablatio n and biventricular pacemaker implant on 10/20/2017 3. Atrial fibrillation. A. History of paroxysmal atrial fibrillation, historically managed with Multaq. B. Hospitalized on 09/30/2017 for atrial fibrillation with RVR. C. Required cavotricuspid isthmus ablation that was unsuccessful and electric cardioversion on 10/04. D. Status post successful AV claudia ablation and placement of a biventricular pacemaker on 10/20/[address] Johansen, traffic line painter. E. 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 F. Remains in a regular rhythm with a rate in the 70 and 80s as of 11/15/2017. 4. Coronary artery disease, triple vessel. A. Status post coronary artery bypass x3 with ligation of the left atrial appendage on 10/14/[address] Jim Hernandez along with aortic valve replacement. B. Healing well from the bypass surgery as of 11/15/2017. 5. Severe aortic stenosis. A. Status post aortic valve replacement with a bioprosthetic valve a #25 Magna on 10/14/[address] Jim Hernandez. B. Healing well from his aortic valve replacement, as of 11/15/2017. 6. Acute congestive heart failure. A. Resolved with no evidence of acute congestive heart failure as of 10/25/2017. B. No evidence of acute congestive heart failure as of 11/15/2017. 7. History of ventricular arrhythmias, controlled. 8. Diabetes type 2. A. Insulin requiring. B. Well controlled with a hemoglobin A1c of 6.3. C. FBS 134 as of 11/14/2017. 9. Rheumatoid arthritis. A. Controlled. 10. Hypertension. A. Controlled as of 11/15/2017. 11. Morbid obesity. 14. Obstructive sleep apnea for which he is on CPAP. 15. Venous insufficiency of the lower extremities. A. Complicated by stasis dermatitis that is controlled. B. Edema of the lower extremities improved as of 11/15/2017. 16. Gastroesophageal reflux disease. 17. History of asthma. A. Presently asymptomatic. 18. Anemia. A. Hemoglobin is up to 10.3 as of 11/14/2017. 19. Skin tear of the left lower leg with serous drainage. A. Improved as of 11/15/2017. PLAN: Continue present care. Continue physical therapy. Anticipate discharge tomorrow. His family is making preparations.
[2017-11-15] MEDS: Levemir Flexpen 100 UNITS/ML PEN SC SCH (20:39)
[2017-11-15] MEDS: Latanoprost 0.005% Ophth Soln 2.5 ml Bottle EA EYE SCH (20:41)
[2017-11-16] MEDS: Acetaminophen/Codeine 30-300mg Tablet PO PRN ×3 (00:51→10:37)
[2017-11-16 06:36] VITALS: BP 126/59; TEMP 97.3
[2017-11-16] MEDS: HumaLOG 300 UNITS/3 ML VIAL SC SCH ×2 (07:54→11:34)
[2017-11-16] MEDS: Mupirocin 2% Ointment 22 GM Tube TOP SCH (07:55)
[2017-11-16] MEDS: Polyethylene Glycol 3350 17 GM Packet PO SCH (07:55)
[2017-11-16] MEDS: Carvedilol 6.25 MG TAB PO SCH (07:56)
[2017-11-16] MEDS: Spironolactone 25 MG TAB PO SCH (07:56)
[2017-11-16] MEDS: Folic Acid 1 MG TAB PO SCH (07:57)
[2017-11-16] MEDS: predniSONE 5 MG TAB PO SCH (07:57)
[2017-11-16] MEDS: Loratadine 10 MG TAB PO SCH (07:57)
[2017-11-16] MEDS: Losartan 25 MG TAB PO SCH (07:57)
[2017-11-16] MEDS: Apixaban 5 MG TAB PO SCH (07:57)
[2017-11-16] MEDS: Furosemide 40 MG TAB PO SCH ×2 (07:57→14:02)
[2017-11-16] MEDS: Atorvastatin Calcium 10 MG TAB PO SCH (07:57)
[2017-11-16] MEDS: Aspirin 81 mg Enteric Coated Tablet PO SCH (07:57)
[2017-11-16] MEDS: Multivitamin W/ Minerals 1 TAB PO SCH (07:57)
[2017-11-16] MEDS ORDERED: Silver Sulfadiazine 1% Cream 50 GM JAR TOP SCH (09:00)
--- NOTE | 2017-11-16 10:06 | DIS ---
FINAL DIAGNOSES: 1. Generalized weakness and deconditioning following a prolonged hospitalization at [facility] from 09/30/2017 until 10/25/2017. A. Improved, ambulating well with a walker, transferring independently as of 11/16/2017. 2. Hospitalized at [facility] from 09/30/2017 until 10/25/2017 for atrial f ibrillation with rapid ventricular response, congestive heart failure, requiring cavotricuspid isthmu s ablation unsuccessful and cardioversion on 10/14/2017, coronary artery bypass x3 and aortic valve r eplacement with a bioprosthetic valve for severe aortic stenosis and then successful AV claudia ablatio n and biventricular pacemaker implant on 10/20/2017 3. Atrial fibrillation. A. History of paroxysmal atrial fibrillation, historically managed with Multaq. B. Hospitalized on 09/30/2017 for atrial fibrillation with RVR. C. Required cavotricuspid isthmus ablation that was unsuccessful and electric cardioversion on 10/04. D. Status post successful AV claudia ablation and placement of a biventricular pacemaker on 10/20/[address] Johansen, outside sales representative insurance. E. 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 F. Remains in a regular rhythm with a rate in the 70 and 80s as of 11/16/2017. 4. Coronary artery disease, triple vessel. A. Status post coronary artery bypass x3 with ligation of the left atrial appendage on 10/14/[address] Jim Hernandez along with aortic valve replacement. B. Healing well from the bypass surgery as of 11/16/2017. 5. Severe aortic stenosis. A. Status post aortic valve replacement with a bioprosthetic valve a #25 Magna on 10/14/[address] Jim Hernandez. B. Healing well from his aortic valve replacement, as of 11/16/2017. 6. Acute congestive heart failure. A. Resolved with no evidence of acute congestive heart failure as of 10/25/2017. B. No evidence of acute congestive heart failure as of 11/16/2017. 7. History of ventricular arrhythmias, controlled. 8. Diabetes type 2. A. Insulin requiring. B. Well controlled with a hemoglobin A1c of 6.3. C. FBS 134 as of 11/14/2017. 9. Rheumatoid arthritis. A. Controlled. 10. Hypertension. A. Controlled as of 11/15/2017. 11. Morbid obesity. 14. Obstructive sleep apnea for which he is on CPAP. 15. Venous insufficiency of the lower extremities. A. Complicated by stasis dermatitis that is controlled. B. Continued to have 1+ edema with skin tears with serous drainage to the lower legs as of 11/16/2017 . 16. Gastroesophageal reflux disease. 17. History of asthma. A. Presently asymptomatic. 18. Anemia. A. Hemoglobin is up to 10.3 as of 11/14/2017. SUMMARY: Mr. Elias is a 76-year-old white male who has a history of diabetes type 2, insulin requiri ng, paroxysmal atrial fibrillation, hypertension, rheumatoid arthritis, and venous insufficiency of t he lower extremities. The patient was hospitalized at [facility] from 09/30/2017 until . The patient entered the hospital because of shortness of breath and rapid heart rate and found to be in atrial fibrillation/flutter with rapid response. Initial echocardiogram showed severe depression of the left ventricular function with ejection fraction of 15-20% and dilated left atrium . He required a Cardizem drip in addition of amiodarone drip to control the tachycardia. Dr. Johansen, outside sales representative insurance, did a cavotricuspid isthmus ablation that was unsuccessful and the patient event ually tried electrical cardioversion. Repeat echocardiogram done on 10/07/2017 showed severe aortic stenosis, severe left atrial enlargement, but the ejection fraction had improved to 50-55%. Initial ejection fraction, depression, felt to be tachycardia induced. His congestive heart failure, improve d. He later developed polymorphic ventricular tachycardia that was controlled with his amiodarone. He underwent heart catheterization on 10/12/2017 and found to have severe triple vessel disease with severe aortic stenosis. On 10/14/2017 cardiovascular surgeon, Dr. Jim Hernandez did a coronary arter y bypass x3 and an aortic valve replacement with bioprosthetic valve #24 Magnum and ligation of left atrial appendage. The patient again had atrial fibrillation with rapid ventricular response and unde rwent a transesophageal echo 10/19/2017 that showed normal ventricular function. The left atrial jeremi endage showed a leak and a clot in the left atrial appendage. The patient underwent successful AV no darryl ablation and placement of a biventricular pacemaker. He was observed for several days postop, jaramillo d no further prolongation of the QT interval and had marked peripheral edema that improved with IV di uresis. He was left extremely weak. He was replaced on his anticoagulant, Eliquis. He was transfer red to [facility] on 10/25/2017 for the purpose of physical therapy. HOSPITAL COURSE: The patient did very well during his hospitalization and showed gradual improvement in his general strength. Initially he was tolerating sitting up in a chair. Then, he began walking short distances in his room and throughout the hospital stay his capabilities improved to where he w as walking up to 200 feet twice a day with a rolling walker and the patient was transferring independ ently. He gradually was able to start working with the upper body for strengthening. Initially this was delayed due to soreness from the sternal incision. The patient's lungs remained clear. He had significant problems throughout his hospitalization with continued peripheral edema. His weight incr eased from an admission weight of 272 to 288. He was eating very well. He was on furosemide 40 mg b .i.d. His spironolactone 25 mg b.i.d. was increased to 50. He did lose down to 284 at his discharge , but still was much higher than his admission weight, still had 1+ edema. He had sustained some sma ll skin tears to the left and right lower leg and from these had significant serous drainage due to t he tissue edema. This will be handled with increasing his furosemide to 80 in the morning, 40 in the afternoon and spironolactone will be continued with 50 mg b.i.d. The areas of skin tears will be co benitez with a small amount of Silvadene and overlaid with an Adaptic, 4 x 4s, and then the legs wrappe d with a Kerlix and then 2 layer 4 inch Navjot bandages going from the toes to the knees. Once these le sions are healed he can resume wearing his low pressure knee high support hose. During his hospitali zation, his diabetes remained under very good control. His FBS were all usually under 130. His hemo globin A1c was 6.3. He will be continued on his Levemir and his Humalog before meals. Arrangements will be made for the patient to continue his cardiac rehabilitation program as an outpatient. His co ndition had improved such that on 11/16/2017, he and his were both ready for him to go home, and she felt like she could take care of him and also manage with the wrappings on the legs. DIET: Consistent carbohydrate diet. No added salt, fluid restricted to no more than 1500 mL a day. ACTIVITIES: Ambulate with a walker with rollers. WOUND CARE: The skin tears of the lower leg will be cleansed with saline daily, then dressed with a small layer of Silvadene cream covered with Adaptic and gauze, and then the legs will be wrapped with Kerlix and then 2 layers of 4 inch Navjot bandages going from the toes to just below the knees. Once kristin gandara wounds have healed then he can resume wearing his low pressure support hose. If this is not dona ugh, may have to go up to a monitor pressure support hose. MEDICATIONS: Enbrel 50 mg subcu monthly, Tylenol #3 one or two every 4 hours as needed for pain, chayito bib using at nighttime, Maalox 30 mL every 4 hours as needed, Eliquis 5 mg b.i.d., aspirin 81 mg daily, atorvastatin 20 mg daily, Dulcolax 10 mg per suppository 1 per rectum daily p.r.n. constipatio n, carvedilol 6.25 mg b.i.d., folic acid 1 mg daily, furosemide 40 mg 2 in the morning and 1 at 2 p.m . daily, Levemir 40 units daily, Humalog 10 units subcu before meals, multivitamin daily, Xalatan 0.0 05% 1 drop in the eyes at bedtime, losartan 25 mg daily, methotrexate 7.5 mg on Tuesday and , pantoprazole 40 mg daily, MiraLax 17 grams, 8 ounces of water daily, prednisone 5 mg daily, spironol actone 50 mg b.i.d. FOLLOW UP: The patient will attend Cardiac Rehab Program 2-3 days a week [facility]. The patient is due to be seen in followup by his computer application developer Tuesday11/21/2017. T he patient due to see his bean sprout grower on 11/21/2017. The patient is due to see his electrophysiologis t next week. The patient will be seen in followup by myself in a week with a CBC and basic metabolic panel. CODE STATUS: Full code.
== END 2017-11-16 14:00 | disposition home health service (06) | DRG 948 ==
LOC: MADMS 14:20 → UNDOADMIN 14:20
PROVIDERS: ADMIT Family Medicine; ATTEND Family Medicine
DX: R53.1 Weakness (principal); I42.8 Other cardiomyopathies; E11.9 Type 2 diabetes mellitus without complications; Z79.4 Long term (current) use of insulin; I48.0 Paroxysmal atrial fibrillation; M06.9 Rheumatoid arthritis, unspecified; I87.2 Venous insufficiency (chronic) (peripheral); Z95.1 Presence of aortocoronary bypass graft; Z95.2 Presence of prosthetic heart valve; G47.33 Obstructive sleep apnea (adult) (pediatric); E78.5 Hyperlipidemia, unspecified; J45.909 Unspecified asthma, uncomplicated; K21.9 Gastro-esophageal reflux disease without esophagitis; Z79.01 Long term (current) use of anticoagulants; Z95.0 Presence of cardiac pacemaker; I25.10 Atherosclerotic heart disease of native coronary artery without angina pectoris; E66.01 Morbid (severe) obesity due to excess calories; D64.9 Anemia, unspecified; S81.812A Laceration without foreign body, left lower leg, initial encounter; I11.0 Hypertensive heart disease with heart failure
CPT/HCPCS: 36415; 36416; 80048; 80053; 82565; 83036; 85014; 85018; 85025; 85049; G8987-GO-CK; G8988-GO-CH; J1815; J7070; J8610

== ENCOUNTER 2017-11-25 07:59 | Outpatient (CLI) | payer MEDICARE, BC ==
[2017-11-25 08:33] LABS: INR-International Normal Ratio 1.5; Prothrombin Time 17.7 SEC (12.0-14.7)
[2017-11-25 08:36] LABS: Hemoglobin 11.4 g/dL (14.0-18.0); Mean Corpuscular HGB CONC 31.9 g/dL (32.0-36.0); Mean Corpuscular Hemoglobin 28.2 pg (27.0-31.0); Mean Corpuscular Volume 88.2 fL (78.0-98.0); Mean Platelet Volume 10.5 fL (7.4-10.4); Platelet Count 195 thou/uL (130-400); Red Blood Cell (RBC) Count 4.06 mill/uL (4.70-6.10); White Blood Cell (WBC) Count 8.2 thou/uL (4.8-10.8)
[2017-11-25 08:50] LABS: Anion Gap 17 mmol/L (10-20); BUN (Urea Nitrogen) 19 mg/dL (8.4-25.7); Calc. Creatinine Clearance 0 mL/min (70-130); Calcium 9.7 mg/dL (7.8-10.44); Carbon Dioxide 23 mmol/L (23-31); Chloride 102 mmol/L (98-107); Estimated GFR-MDRD 61; Glucose 127 mg/dL (83-110); Sodium 136 mmol/L (136-145)
[2017-11-25 08:57] LABS: Anisocytosis SLIGHT = 6-15 cells (100X) (0-5/hpf); Lymphocytes 18 % (21-51); MDiff Complete? YES; Manual Diff?? YES; Monocytes 8 % (0-10); Neutrophil 74 % (42-75)
[2017-11-25 08:58] LABS: PLT Morphology Comment Appears Adequate
== END 2017-11-25 08:00 | disposition home or self-care (01) ==
LOC: MADLABBHPM 07:59
PROVIDERS: ATTEND Family Medicine
DX: E11.9 Type 2 diabetes mellitus without complications (principal)
CPT/HCPCS: 36415; 80048; 85025; 85610

== ENCOUNTER 2017-11-28 08:32 | Outpatient (CLI) | payer MEDICARE, BC ==
[2017-11-28 09:20] LABS: Anion Gap 16 mmol/L (10-20); BUN (Urea Nitrogen) 23 mg/dL (8.4-25.7); Calc. Creatinine Clearance 0 mL/min (70-130); Calcium 9.6 mg/dL (7.8-10.44); Carbon Dioxide 25 mmol/L (23-31); Chloride 101 mmol/L (98-107); Estimated GFR-MDRD 59; Glucose 120 mg/dL (83-110); Potassium 5.3 mmol/L (3.5-5.1); Sodium 137 mmol/L (136-145)
== END 2017-11-28 08:33 | disposition home or self-care (01) ==
LOC: MADLABBHPM 08:32
PROVIDERS: ATTEND Family Medicine
DX: E78.5 Hyperlipidemia, unspecified (principal)
CPT/HCPCS: 36415; 80048

== ENCOUNTER 2018-01-30 07:01 | Outpatient (CLI) | payer MEDICARE, BC ==
[2018-01-30 07:27] LABS: #Basophils 0.1 thou/uL (0.0-0.2); #Eosinphils 0.1 thou/uL (0.0-0.7); #Lymphocytes 2.2 thou/uL (1.20-3.40); #Monocytes 0.9 thou/uL (0.11-0.59); %Eosinophils 0.9 % (0.0-10.0); %Lymphocytes 23.8 % (21.0-51.0); %Monocytes 9.9 % (0.0-10.0); %Neutrophils 64.4 % (42.0-75.0); Hemoglobin 11.9 g/dL (14.0-18.0); Mean Corpuscular HGB CONC 31.5 g/dL (32.0-36.0); Mean Corpuscular Hemoglobin 27.4 pg (27.0-31.0); Mean Corpuscular Volume 87.1 fL (78.0-98.0); Mean Platelet Volume 11.7 fL (7.4-10.4); Platelet Count 251 thou/uL (130-400); RBC Distribution Width 15.3 % (11.5-14.5); Red Blood Cell (RBC) Count 4.35 mill/uL (4.70-6.10); White Blood Cell (WBC) Count 9.3 thou/uL (4.8-10.8)
[2018-01-30 07:38] LABS: Anion Gap 15 mmol/L (10-20); BUN (Urea Nitrogen) 19 mg/dL (8.4-25.7); Calc. Creatinine Clearance 0 mL/min (70-130); Calcium 9.7 mg/dL (7.8-10.44); Carbon Dioxide 29 mmol/L (23-31); Chloride 101 mmol/L (98-107); Estimated GFR-MDRD 78; Glucose 105 mg/dL (83-110); Potassium 3.3 mmol/L (3.5-5.1); Sodium 142 mmol/L (136-145)
== END 2018-01-30 07:02 | disposition home or self-care (01) ==
LOC: MADLABBHPM 07:01
PROVIDERS: ATTEND Family Medicine
DX: E11.9 Type 2 diabetes mellitus without complications (principal); D64.9 Anemia, unspecified
CPT/HCPCS: 36415; 80048; 85025

== ENCOUNTER 2018-02-15 08:01 | Outpatient (CLI) | payer MEDICARE, BC ==
--- NOTE | 2018-02-15 08:37 | RAD ---
PA CHEST: History: CHF. Shortness of breath. Comparison: 10-16-17 FINDINGS: Opacification of left mid and lower lung is noted. Findings suggest left effusion with left basilar a telectasis or consolidation. Right lung is well aerated and clear. There is cardiomegaly with post op sternotomy change and pacemaker leads again noted. IMPRESSION: Increasing opacification of the left mid and lower lung when compared to prior exam. POS: OFF
[2018-02-15 09:39] LABS: Anion Gap 17 mmol/L (10-20); BUN (Urea Nitrogen) 20 mg/dL (8.4-25.7); Calc. Creatinine Clearance 0 mL/min (70-130); Calcium 9.8 mg/dL (7.8-10.44); Carbon Dioxide 29 mmol/L (23-31); Chloride 99 mmol/L (98-107); Estimated GFR-MDRD 68; Glucose 149 mg/dL (83-110); Potassium 3.5 mmol/L (3.5-5.1); Sodium 141 mmol/L (136-145)
== END 2018-02-15 08:02 | disposition home or self-care (01) ==
LOC: MADLABBHPM 08:01
PROVIDERS: ATTEND Internal Medicine Cardiovascular Disease
DX: I50.22 Chronic systolic (congestive) heart failure (principal); E87.6 Hypokalemia
CPT/HCPCS: 36415; 71046; 80048

== ENCOUNTER 2018-03-16 07:35 | Emergency (ER) | payer MEDICARE, BC ==
--- NOTE | 2018-03-16 08:46 | CT ---
CT HEAD WITHOUT CONTRAST: Date: 03/16/18 Multiple axial tomograms obtained through the head without IV enhancement. INDICATION: Dizziness. COMPARISON: CT head of 11/29/11. FINDINGS: Mild cortical volume loss. Ventricles have normal size and position. No evidence of mass, hemorrhage, or acute infarct. Paranasal sinuses appear clear. IMPRESSION: No acute process. POS: [facility]
--- NOTE | 2018-03-16 08:47 | RAD ---
PORTABLE CHEST: Date: 03/16/18 HISTORY: Dizziness. COMPARISON: Chest film dated 02/28/18. FINDINGS: Increasing opacity in the left chest indicates increasing left effusion and left lung atelectasis. Ri ght lung remains clear. There is cardiomegaly and postop sternotomy change. Pacemaker leads again not ed. IMPRESSION: Evidence of increasing left effusion. POS: [facility]
[2018-03-16 08:54] LABS: #Basophils 0.1 thou/uL (0.0-0.2); #Eosinphils 0.1 thou/uL (0.0-0.7); #Lymphocytes 2.2 thou/uL (1.20-3.40); #Monocytes 0.7 thou/uL (0.11-0.59); #Neutrophils 6.4 thou/uL (1.40-6.50); %Basophils 0.8 % (0.0-1.0); %Eosinophils 0.8 % (0.0-10.0); %Lymphocytes 23.3 % (21.0-51.0); %Monocytes 7.4 % (0.0-10.0); %Neutrophils 67.7 % (42.0-75.0); Hemoglobin 12.6 g/dL (14.0-18.0); Mean Corpuscular HGB CONC 31.5 g/dL (32.0-36.0); Mean Corpuscular Hemoglobin 28.1 pg (27.0-31.0); Mean Platelet Volume 10.3 fL (7.4-10.4); Platelet Count 228 thou/uL (130-400); Red Blood Cell (RBC) Count 4.49 mill/uL (4.70-6.10); White Blood Cell (WBC) Count 9.4 thou/uL (4.8-10.8)
[2018-03-16 09:04] LABS: INR-International Normal Ratio 1.5; PTT 44.5 SEC (22.9-36.1); Prothrombin Time 18.3 SEC (12.0-14.7)
[2018-03-16 09:13] LABS: ALT (SGPT) 20 U/L (8-55); AST (SGOT) 18 U/L (5-34); Alkaline Phosphatase 112 U/L (40-150); Anion Gap 16 mmol/L (10-20); BUN (Urea Nitrogen) 21 mg/dL (8.4-25.7); Bilirubin, Total 1.3 mg/dL (0.2-1.2); Calc. Creatinine Clearance 0 mL/min (70-130); Carbon Dioxide 30 mmol/L (23-31); Chloride 96 mmol/L (98-107); Estimated GFR-MDRD 80; Globulin 3.6 g/dL (2.4-3.5); Glucose 131 mg/dL (83-110); Protein, Total 7.6 g/dL (5.8-8.1); Sodium 138 mmol/L (136-145)
== END 2018-03-16 10:16 | disposition short-term general hospital (02) ==
LOC: MADERS 07:35
DX: G45.9 Transient cerebral ischemic attack, unspecified (principal); I25.10 Atherosclerotic heart disease of native coronary artery without angina pectoris; I48.91 Unspecified atrial fibrillation; E11.9 Type 2 diabetes mellitus without complications; K21.9 Gastro-esophageal reflux disease without esophagitis; E78.5 Hyperlipidemia, unspecified; Z79.899 Other long term (current) drug therapy; Z79.82 Long term (current) use of aspirin; Z79.4 Long term (current) use of insulin
CPT/HCPCS: 36416; 70450; 71045; 80053; 84484; 85025; 85610; 85730; 93005; 94760

== ENCOUNTER 2018-10-29 12:34 | Emergency (ER) | payer MEDICARE, BC ==
[2018-10-29 13:30] LABS: #Basophils 0.1 thou/uL (0.0-0.2); #Eosinphils 0.2 thou/uL (0.0-0.7); #Lymphocytes 1.5 thou/uL (1.20-3.40); #Monocytes 0.6 thou/uL (0.11-0.59); #Neutrophils 6.3 thou/uL (1.40-6.50); %Basophils 0.7 % (0.0-1.0); %Eosinophils 2.2 % (0.0-10.0); %Lymphocytes 16.8 % (21.0-51.0); %Monocytes 7.3 % (0.0-10.0); %Neutrophils 72.9 % (42.0-75.0); Hemoglobin 12.5 g/dL (14.0-18.0); Mean Corpuscular HGB CONC 31.3 g/dL (32.0-36.0); Mean Corpuscular Hemoglobin 27.2 pg (27.0-31.0); Mean Corpuscular Volume 87.1 fL (78.0-98.0); Mean Platelet Volume 10.4 fL (7.4-10.4); Platelet Count 167 thou/uL (130-400); Red Blood Cell (RBC) Count 4.59 mill/uL (4.70-6.10); White Blood Cell (WBC) Count 8.6 thou/uL (4.8-10.8)
[2018-10-29 13:39] LABS: INR-International Normal Ratio 1.3; Prothrombin Time 16.5 SEC (12.0-14.7)
== END 2018-10-29 14:15 | disposition home or self-care (01) ==
LOC: MADERS 12:34
DX: S51.011A Laceration without foreign body of right elbow, initial encounter (principal); S81.811A Laceration without foreign body, right lower leg, initial encounter; I25.10 Atherosclerotic heart disease of native coronary artery without angina pectoris; I49.9 Cardiac arrhythmia, unspecified; I48.91 Unspecified atrial fibrillation; E11.9 Type 2 diabetes mellitus without complications; K21.9 Gastro-esophageal reflux disease without esophagitis; E78.5 Hyperlipidemia, unspecified; M06.9 Rheumatoid arthritis, unspecified; Z79.82 Long term (current) use of aspirin; Z79.4 Long term (current) use of insulin; Z79.01 Long term (current) use of anticoagulants; Z86.73 Personal history of transient ischemic attack (TIA), and cerebral infarction without residual deficits; Z79.899 Other long term (current) drug therapy; W45.8XXA Other foreign body or object entering through skin, initial encounter
CPT/HCPCS: 36415; 85025; 85610; 99283

== ENCOUNTER 2020-11-22 19:09 | Emergency (ER) | payer MEDICARE, BC ==
[2020-11-22] MEDS ORDERED: Ondansetron PF 4 MG/2 ML Vial ONE (20:35)
[2020-11-22] MEDS ORDERED: Sodium Chloride 0.9% 1,000 ML ONE (20:35)
[2020-11-22 21:05] LABS: ALT (SGPT) 21 U/L (8-55); AST (SGOT) 18 U/L (5-34); Albumin 3.6 g/dL (3.4-4.8); Alkaline Phosphatase 80 U/L (40-110); Anion Gap 15 mmol/L (10-20); BUN (Urea Nitrogen) 13 mg/dL (8.4-25.7); Calc. Creatinine Clearance 0 mL/min (70-130); Calcium 9.2 mg/dL (7.8-10.44); Carbon Dioxide 25 mmol/L (23-31); Chloride 99 mmol/L (98-107); Globulin 3.2 g/dL (2.4-3.5); Glucose 223 mg/dL (83-110); Potassium 3.8 mmol/L (3.5-5.1); Protein, Total 6.8 g/dL (5.8-8.1); Sodium 135 mmol/L (136-145)
[2020-11-22 21:06] LABS: #Basophils 0.1 thou/uL (0.0-0.2); #Lymphocytes 0.8 thou/uL (1.20-3.40); #Monocytes 0.8 thou/uL (0.11-0.59); #Neutrophils 11.2 thou/uL (1.40-6.50); %Basophils 0.5 % (0.0-1.0); %Eosinophils 0.1 % (0.0-10.0); %Lymphocytes 5.9 % (21.0-51.0); %Monocytes 6.4 % (0.0-10.0); %Neutrophils 87.2 % (42.0-75.0); Hemoglobin 12.9 g/dL (14.0-18.0); Large Platelets SLIGHT; MDiff Complete? YES; Mean Corpuscular HGB CONC 32.2 g/dL (32.0-36.0); Mean Corpuscular Hemoglobin 29.3 pg (27.0-31.0); Mean Corpuscular Volume 90.9 fL (78.0-98.0); Mean Platelet Volume 13.4 fL (7.4-10.4); Platelet Count 146 thou/uL (130-400); Platelet Morphology Comment Appears Adequate; RBC Distribution Width 13.8 % (11.5-14.5); RBC Morphology Normal; White Blood Cell (WBC) Count 12.9 thou/uL (4.8-10.8)
[2020-11-22 21:33] LABS: Bilirubin Negative (Negative); Blood, Urine Negative (Negative); Clarity Clear (Clear); Glucose, Urine (Dipstick) 100 mg/dL (Negative); Ketone, Urine 40 mg/dL (Negative); Leukocyte Negative (Negative); Nitrite Negative (Negative); Protein, Urine (Dipstick) Negative (Neg-Trace); Specific Gravity, Urine 1.025 (1.005-1.030); Urobilinogen 0.2 mg/dL (Less than 2); pH, Urine 5.5 (5.0-9.0)
[2020-11-22 21:41] LABS: SARS-CoV-2 NAA Rapid Test Not Detected (NotDetected)
[2020-11-22] MEDS ORDERED: Sodium Chloride 0.9% 100 ML ONE (22:25)
[2020-11-22] MEDS ORDERED: Cefepime 2 GM VIAL ONE (22:25)
[2020-11-22] MEDS ORDERED: Sodium Chloride 0.9% 250 ML 500 ML ONE (22:33)
== END 2020-11-23 00:26 | disposition short-term general hospital (02) ==
LOC: MADERS 19:09
DX: R50.9 Fever, unspecified (principal); R41.0 Disorientation, unspecified; D72.829 Elevated white blood cell count, unspecified; Z20.822 Contact with and (suspected) exposure to COVID-19; I48.91 Unspecified atrial fibrillation; Z86.73 Personal history of transient ischemic attack (TIA), and cerebral infarction without residual deficits; K21.9 Gastro-esophageal reflux disease without esophagitis; E11.9 Type 2 diabetes mellitus without complications; E78.5 Hyperlipidemia, unspecified; M06.9 Rheumatoid arthritis, unspecified; Z79.899 Other long term (current) drug therapy; Z79.82 Long term (current) use of aspirin; Z79.4 Long term (current) use of insulin
CPT/HCPCS: 71045; 80053; 81003; 83605; 85025; 87040; U0002; 96365; 96367; 96375; J0692; J2405; J3370; J3490; J7050

== ENCOUNTER 2022-02-13 06:53 | Emergency (ER) | payer MEDICARE, BC ==
[2022-02-13 07:59] LABS: #Lymphocytes 0.5 thou/uL (1.20-3.40); #Monocytes 0.5 thou/uL (0.11-0.59); #Neutrophils 6.1 thou/uL (1.40-6.50); %Basophils 0.6 % (0.0-1.0); %Eosinophils 0.3 % (0.0-10.0); %Lymphocytes 6.9 % (21.0-51.0); %Monocytes 7.2 % (0.0-10.0); %Neutrophils 85.1 % (42.0-75.0); Large Platelets SLIGHT; MDiff Complete? YES; Macrocytosis SLIGHT = 6-15 cells (100X) (0-5/hpf); Mean Corpuscular HGB CONC 35.1 g/dL (32.0-36.0); Mean Corpuscular Hemoglobin 34.5 pg (27.0-31.0); Mean Corpuscular Volume 98.3 fl (78.0-98.0); Mean Platelet Volume 12.8 fL (7.4-10.4); Platelet Count 121 10x3/uL (130-400); Platelet Morphology Comment Appears Decreased; RBC Distribution Width 13.9 % (11.5-14.5); Red Blood Cell (RBC) Count 4.06 mill/uL (4.70-6.10); White Blood Cell (WBC) Count 7.2 10x3/uL (4.8-10.8)
[2022-02-13 08:08] LABS: ALT (SGPT) 22 U/L (8-55); AST (SGOT) 39 U/L (5-34); Albumin 3.7 g/dL (3.4-4.8); Alkaline Phosphatase 84 U/L (40-110); Anion Gap 17 mmol/L (10-20); BUN (Urea Nitrogen) 20 mg/dL (8.4-25.7); CK (CPK) 1094 U/L (30-200); Calc. Creatinine Clearance 0 mL/min (70-130); Calcium 8.5 mg/dL (7.8-10.44); Carbon Dioxide 23 mmol/L (23-31); Chloride 95 mmol/L (98-107); Estimated GFR 79; Glucose 263 mg/dL (83-110); Magnesium 1.5 mg/dL (1.6-2.6); Potassium 3.7 mmol/L (3.5-5.1); Protein, Total 6.7 g/dL (5.8-8.1); Sodium 131 mmol/L (136-145)
[2022-02-13 08:30] LABS: Lipase Less than 4 U/L (8-78)
[2022-02-13] MEDS ORDERED: Lactated Ringer's 1,000 ML ONE (08:54)
[2022-02-13] MEDS ORDERED: Aspirin Chewable 81 MG TAB ONE (08:55)
[2022-02-13] MEDS ORDERED: Magnesium 2 GM/50 ML BAG (IN WATER) ONE (08:55)
[2022-02-13 09:19] LABS: Bilirubin Negative (Negative); Blood, Urine Negative (Negative); Clarity Hazy (Clear); Glucose, Urine (Dipstick) 500 mg/dL (Negative); Ketone, Urine 40 mg/dL (Negative); Leukocyte Negative (Negative); Nitrite Negative (Negative); Protein, Urine (Dipstick) Negative (Neg-Trace); Specific Gravity, Urine 1.015 (1.005-1.030); Urobilinogen 0.2 mg/dL (Less than 2)
[2022-02-13 10:24] LABS: Lactic Acid 2.1 mmol/L (0.5-2.2)
[2022-02-13] MEDS ORDERED: Iopamidol 370 76% 100 ML VIAL ONE (14:04)
== END 2022-02-13 11:44 | disposition short-term general hospital (02) ==
LOC: MADERS 06:53
DX: E86.0 Dehydration (principal); R77.8 Other specified abnormalities of plasma proteins; E83.42 Hypomagnesemia; E87.1 Hypo-osmolality and hyponatremia; E87.20 Acidosis, unspecified; D69.6 Thrombocytopenia, unspecified; I25.10 Atherosclerotic heart disease of native coronary artery without angina pectoris; E11.9 Type 2 diabetes mellitus without complications; Z79.4 Long term (current) use of insulin; K21.9 Gastro-esophageal reflux disease without esophagitis; E78.5 Hyperlipidemia, unspecified; Z79.82 Long term (current) use of aspirin; Z79.899 Other long term (current) drug therapy
CPT/HCPCS: 70450; 71045; 72125; 74177; 80053; 81003; 82550; 82553; 83605; 83690; 83735; 83880; 84484; 85025; 87040; 87804; 93005; 96365; J3475; J7120; Q9967

== ENCOUNTER 2023-05-06 15:01 | Inpatient (IN) | payer MEDICARE, BC ==
[2023-05-06] MEDS ORDERED: Senokot S 8.6-50 MG TAB PO PRN (18:59)
[2023-05-06 19:24] VITALS: BMI 36.6
[2023-05-06] MEDS ORDERED: Glucagon 1 MG/ML KIT IM PRN (19:30)
[2023-05-06] MEDS ORDERED: Dextrose 50% Abboject 50 ML SYRINGE SLOW IVP PRN (19:30)
[2023-05-06] MEDS ORDERED: HumaLOG 300 UNITS/3 ML VIAL SC PRN (19:30)
[2023-05-06] MEDS ORDERED: HYDROcodone/Acetaminophen 5/325 mg Tablet PO PRN (19:45)
[2023-05-06] MEDS: Lantus 1000 UNITS/10 ML VIAL SC SCH (20:04)
[2023-05-06] MEDS: Carvedilol 6.25 MG TAB PO SCH (20:05)
[2023-05-06] MEDS: HYDROcodone/Acetaminophen 10/325 mg Tablet PO PRN (20:05)
[2023-05-06] MEDS: Cholecalciferol 1,000 UNITS (25 MCG) TAB PO SCH (20:05)
[2023-05-06] MEDS: Apixaban 5 MG TAB PO SCH (20:05)
[2023-05-06] MEDS: Polyethylene Glycol 3350 17 GM Packet PO SCH (20:05)
[2023-05-06] MEDS: Gabapentin 300 MG CAP PO SCH (20:05)
[2023-05-06] MEDS: Acetaminophen ER (8hr) 650 MG TAB PO SCH (20:05)
[2023-05-06] MEDS: Latanoprost 0.005% Ophth Soln 2.5 ml Bottle EA EYE SCH (20:08)
[2023-05-07] MEDS: Potassium Chloride 20 MEQ TAB PO SCH (09:15)
[2023-05-07] MEDS: Multivitamin W/ Minerals 1 TAB PO SCH (09:15)
[2023-05-07] MEDS: Loratadine 10 MG TAB PO SCH (09:15)
[2023-05-07] MEDS: Polyethylene Glycol 3350 17 GM Packet PO SCH (09:15)
[2023-05-07] MEDS: Folic Acid 1 MG TAB PO SCH (09:16)
[2023-05-07] MEDS: Torsemide 20 MG TAB PO SCH (09:16)
[2023-05-07] MEDS: Aspirin 81 mg Enteric Coated Tablet PO SCH (09:16)
[2023-05-07] MEDS: Spironolactone 25 MG TAB PO SCH (09:16)
[2023-05-07] MEDS: HumaLOG 300 UNITS/3 ML VIAL SC SCH (09:19)
[2023-05-09 05:32] LABS: #Basophils 0.1 thou/uL (0.0-0.2); #Eosinphils 0.2 thou/uL (0.0-0.7); #Lymphocytes 1.6 thou/uL (1.20-3.40); #Monocytes 0.9 thou/uL (0.11-0.59); #Neutrophils 4.2 thou/uL (1.40-6.50); %Eosinophils 2.9 % (0.0-10.0); %Lymphocytes 22.3 % (21.0-51.0); %Monocytes 13.3 % (0.0-10.0); %Neutrophils 60.5 % (42.0-75.0); Hematocrit 29.9 % (42.0-52.0); Mean Corpuscular HGB CONC 33.6 g/dL (32.0-36.0); Mean Corpuscular Hemoglobin 32.2 pg (27.0-31.0); Mean Corpuscular Volume 95.8 fl (78.0-98.0); Mean Platelet Volume 11.7 fL (7.4-10.4); Platelet Count 178 10x3/uL (130-400); RBC Distribution Width 17.2 % (11.5-14.5); Red Blood Cell (RBC) Count 3.12 mill/uL (4.70-6.10)
[2023-05-09 05:50] LABS: Anion Gap 13 mmol/L (10-20); BUN (Urea Nitrogen) 22 mg/dL (8.4-25.7); Calc. Creatinine Clearance 113 mL/min (70-130); Calcium 8.8 mg/dL (7.8-10.44); Carbon Dioxide 29 mmol/L (23-31); Chloride 100 mmol/L (98-107); Estimated GFR 88; Glucose 70 mg/dL (83-110); Potassium 3.8 mmol/L (3.5-5.1); Sodium 138 mmol/L (136-145)
[2023-05-09] MEDS ORDERED: HYDROcodone/Acetaminophen 5/325 mg Tablet PO PRN (13:24)
[2023-05-09] MEDS: HYDROcodone/Acetaminophen 10/325 mg Tablet PO PRN (20:45)
[2023-05-12] MEDS: HumaLOG 300 UNITS/3 ML VIAL SC PRN (08:24)
[2023-05-13 05:25] LABS: Hemoglobin 10.2 g/dL (14.0-18.0); Mean Corpuscular HGB CONC 31.7 g/dL (32.0-36.0); Mean Corpuscular Hemoglobin 31.1 pg (27.0-31.0); Mean Platelet Volume 13.1 fL (7.4-10.4); Platelet Count 173 10x3/uL (130-400); RBC Distribution Width 17.3 % (11.5-14.5); Red Blood Cell (RBC) Count 3.27 mill/uL (4.70-6.10); White Blood Cell (WBC) Count 3.7 10x3/uL (4.8-10.8)
[2023-05-13 05:37] LABS: Anion Gap 15 mmol/L (10-20); BUN (Urea Nitrogen) 15 mg/dL (8.4-25.7); Calc. Creatinine Clearance 110 mL/min (70-130); Calcium 8.7 mg/dL (7.8-10.44); Carbon Dioxide 24 mmol/L (23-31); Chloride 102 mmol/L (98-107); Estimated GFR 88; Glucose 162 mg/dL (83-110); Potassium 4.1 mmol/L (3.5-5.1); Sodium 137 mmol/L (136-145)
[2023-05-13] MEDS: Lantus 1000 UNITS/10 ML VIAL SC SCH (19:52)
[2023-05-16] MEDS ORDERED: Calcium Carbonate 500 MG ChewTAB PO PRN (13:29)
[2023-05-18 07:39] VITALS: BP 110/68; TEMP 97.4
== END 2023-05-18 10:55 | disposition home health service (06) | DRG 948 ==
LOC: MADMS 18:04
PROVIDERS: ADMIT Family Medicine; ATTEND Family Medicine
DX: R53.81 Other malaise (principal); D62 Acute posthemorrhagic anemia; Z66 Do not resuscitate; I48.91 Unspecified atrial fibrillation; S30.1XXD Contusion of abdominal wall, subsequent encounter; W18.30XD Fall on same level, unspecified, subsequent encounter; Z79.82 Long term (current) use of aspirin; Z79.4 Long term (current) use of insulin; Z79.01 Long term (current) use of anticoagulants; Z79.899 Other long term (current) drug therapy; I25.10 Atherosclerotic heart disease of native coronary artery without angina pectoris; I10 Essential (primary) hypertension; E78.5 Hyperlipidemia, unspecified; K21.9 Gastro-esophageal reflux disease without esophagitis; Z95.1 Presence of aortocoronary bypass graft; Z95.0 Presence of cardiac pacemaker; Z98.41 Cataract extraction status, right eye; Z98.42 Cataract extraction status, left eye; Z95.2 Presence of prosthetic heart valve; E11.649 Type 2 diabetes mellitus with hypoglycemia without coma
CPT/HCPCS: 36415; 36416; 80048; 85025; 85027; J1815

== ENCOUNTER 2023-05-24 09:25 | Outpatient (CLI) | payer MEDICARE, BC | END 2023-05-24 09:26 | disposition home or self-care (01) | LOC: MADULT 09:25 | PROVIDERS: ATTEND Family Medicine | DX: S30.1XXA Contusion of abdominal wall, initial encounter (principal); W19.XXXA Unspecified fall, initial encounter | CPT/HCPCS: 76999 ==

== ENCOUNTER 2023-12-06 15:39 | Inpatient (IN) | payer MEDICARE, BC ==
[2023-12-06 17:01] VITALS: BMI 30.9
[2023-12-06] MEDS ORDERED: cloNIDine 0.1 MG TAB PO PRN (20:18)
[2023-12-06] MEDS ORDERED: Ipratropium/Albuterol 3 ML NEB NEB PRN (20:18)
[2023-12-06] MEDS ORDERED: Calcium Carbonate 500 MG ChewTAB PO PRN (20:18)
[2023-12-06] MEDS ORDERED: CERTOLIZUMAB PEGOL 400 MG IM SCH (20:30)
[2023-12-06] MEDS: Gabapentin 300 MG CAP PO SCH (20:53)
[2023-12-06] MEDS: Acetaminophen ER (8hr) 650 MG TAB PO SCH (20:54)
[2023-12-06] MEDS: guaiFENesin ER 600 MG TAB PO SCH (20:54)
[2023-12-06] MEDS: Cefdinir 300 MG CAP PO SCH (20:54)
[2023-12-06] MEDS: Carvedilol 6.25 MG TAB PO SCH (20:54)
[2023-12-06] MEDS: Apixaban 5 MG TAB PO SCH (20:54)
[2023-12-06] MEDS: Latanoprost 0.005% Ophth Soln 2.5 ml Bottle EA EYE SCH (21:51)
[2023-12-06] MEDS: Lantus 1000 UNITS/10 ML VIAL SC SCH (22:08)
[2023-12-07 05:20] LABS: Anisocytosis SLIGHT = 6-15 cells (100X) (0-5/hpf); Band 2 % (5-11); Eosinophils 2 % (0-10); Hematocrit 48.8 % (42.0-52.0); Hemoglobin 14.9 g/dL (14.0-18.0); Lymphocytes 8 % (21-51); MDiff Complete? YES; Mean Corpuscular HGB CONC 30.4 g/dL (32.0-36.0); Mean Platelet Volume 11.1 fL (7.4-10.4); Monocytes 10 % (0-10); Neutrophil 77 % (42-75); Platelet Count 225 10x3/uL (130-400); RBC Distribution Width 14.9 % (11.5-14.5); White Blood Cell (WBC) Count 9.7 10x3/uL (4.8-10.8)
[2023-12-07 05:23] LABS: ALT (SGPT) 46 U/L (8-55); AST (SGOT) 20 U/L (5-34); Albumin 2.7 g/dL (3.4-4.8); Alkaline Phosphatase 101 U/L (40-110); Anion Gap 17 mmol/L (10-20); BUN (Urea Nitrogen) 24 mg/dL (8.4-25.7); Bilirubin, Total 0.7 mg/dL (0.2-1.2); Calc. Creatinine Clearance 70 mL/min (70-130); Calcium 9.4 mg/dL (7.8-10.44); Carbon Dioxide 26 mmol/L (23-31); Chloride 96 mmol/L (98-107); Estimated GFR 61; Glucose 131 mg/dL (83-110); Potassium 4.5 mmol/L (3.5-5.1); Protein, Total 7.7 g/dL (5.8-8.1); Sodium 134 mmol/L (136-145)
[2023-12-07] MEDS: Cholecalciferol 1,000 UNITS (25 MCG) TAB PO SCH (08:04)
[2023-12-07] MEDS: Torsemide 20 MG TAB PO SCH (08:57)
[2023-12-07] MEDS: valACYclovir 500 MG TAB PO SCH (08:57)
[2023-12-07] MEDS: Potassium Chloride 20 MEQ TAB PO SCH (08:57)
[2023-12-07] MEDS: Multivit, Therapeutic 1 TAB PO SCH (08:57)
[2023-12-07] MEDS: Spironolactone 25 MG TAB PO SCH (08:57)
[2023-12-07] MEDS: Empagliflozin 10 MG TAB PO SCH (08:57)
[2023-12-07] MEDS: Aspirin 81 mg Enteric Coated Tablet PO SCH (08:58)
[2023-12-07] MEDS: Folic Acid 1 MG TAB PO SCH (08:58)
[2023-12-07] MEDS: Pantoprazole DR 40 MG TAB PO SCH (08:58)
[2023-12-07] MEDS: Loratadine 10 MG TAB PO SCH (09:13)
[2023-12-07] MEDS: Senokot S 8.6-50 MG TAB PO PRN (10:16)
[2023-12-07 10:30] VITALS: BMI 30.9
[2023-12-08] MEDS: Emollient 15 oz bottle 450 ML, Triamcinolone Acetonide 200 MG TOP SCH (08:59)
[2023-12-12 13:33] LABS: Anion Gap 17 mmol/L (10-20); BUN (Urea Nitrogen) 31 mg/dL (8.4-25.7); Calc. Creatinine Clearance 58 mL/min (70-130); Calcium 9.5 mg/dL (7.8-10.44); Carbon Dioxide 26 mmol/L (23-31); Chloride 98 mmol/L (98-107); Estimated GFR 49; Glucose 225 mg/dL (83-110); Sodium 136 mmol/L (136-145)
[2023-12-13] MEDS ORDERED: Ondansetron ODT 4 MG TAB SL PRN (13:31)
[2023-12-14 05:17] LABS: Hematocrit 44.1 % (42.0-52.0); Hemoglobin 13.4 g/dL (14.0-18.0); Platelet Count 234 10x3/uL (130-400)
[2023-12-14] MEDS: Cholecalciferol (Vitamin D3) 5,000 UNITS CAPSULE PO SCH (08:18)
[2023-12-14] MEDS ORDERED: Iopamidol 370 76% 100 ML VIAL ONE (09:00)
[2023-12-19] MEDS: Acetaminophen 325 MG TAB PO PRN (07:40)
[2023-12-20 05:11] LABS: Band 2 % (5-11); Eosinophils 2 % (0-10); Hematocrit 48.8 % (42.0-52.0); Hemoglobin 14.5 g/dL (14.0-18.0); Lymphocytes 28 % (21-51); MDiff Complete? YES; Mean Corpuscular HGB CONC 29.6 g/dL (32.0-36.0); Mean Corpuscular Hemoglobin 27.8 pg (27.0-31.0); Mean Corpuscular Volume 93.9 fl (78.0-98.0); Mean Platelet Volume 10.8 fL (7.4-10.4); Monocytes 12 % (0-10); Neutrophil 55 % (42-75); Platelet Count 206 10x3/uL (130-400); RBC Distribution Width 15.4 % (11.5-14.5); White Blood Cell (WBC) Count 7.2 10x3/uL (4.8-10.8)
[2023-12-20 05:21] LABS: ALT (SGPT) 23 U/L (8-55); AST (SGOT) 19 U/L (5-34); Albumin 3.5 g/dL (3.4-4.8); Alkaline Phosphatase 92 U/L (40-110); Anion Gap 17 mmol/L (10-20); BUN (Urea Nitrogen) 20 mg/dL (8.4-25.7); Bilirubin, Total 0.5 mg/dL (0.2-1.2); Calc. Creatinine Clearance 78 mL/min (70-130); Calcium 9.4 mg/dL (7.8-10.44); Carbon Dioxide 26 mmol/L (23-31); Chloride 100 mmol/L (98-107); Estimated GFR 71; Globulin 4.4 g/dL (2.4-3.5); Glucose 116 mg/dL (83-110); Potassium 4.2 mmol/L (3.5-5.1); Protein, Total 7.9 g/dL (5.8-8.1); Sodium 139 mmol/L (136-145)
[2023-12-21 05:09] LABS: Hematocrit 46.2 % (42.0-52.0); Hemoglobin 14.4 g/dL (14.0-18.0); Platelet Count 209 10x3/uL (130-400)
[2023-12-22 06:57] VITALS: BP 106/66; TEMP 97.6
== END 2023-12-22 11:20 | disposition home health service (06) | DRG 947 ==
LOC: MADMS 16:42
PROVIDERS: ADMIT Family Medicine; ATTEND Family Medicine
DX: R53.81 Other malaise (principal); A41.9 Sepsis, unspecified organism; J18.9 Pneumonia, unspecified organism; I50.32 Chronic diastolic (congestive) heart failure; I48.91 Unspecified atrial fibrillation; I11.0 Hypertensive heart disease with heart failure; Z79.82 Long term (current) use of aspirin; Z79.899 Other long term (current) drug therapy; I25.10 Atherosclerotic heart disease of native coronary artery without angina pectoris; K21.9 Gastro-esophageal reflux disease without esophagitis; E78.5 Hyperlipidemia, unspecified; Z95.0 Presence of cardiac pacemaker; Z95.1 Presence of aortocoronary bypass graft; Z98.41 Cataract extraction status, right eye; Z98.42 Cataract extraction status, left eye; Z79.01 Long term (current) use of anticoagulants
CPT/HCPCS: 36415; 36416; 71046; 71260; 80048; 80053; 85014; 85018; 85025; 85049; G0283-GO; J1815; Q9967

== ENCOUNTER 2024-04-24 14:24 | Emergency (ER) | payer MEDICARE, BC ==
[2024-04-24 15:08] LABS: ALT (SGPT) 31 U/L (8-55); AST (SGOT) 20 U/L (5-34); Albumin 3.8 g/dL (3.4-4.8); Alkaline Phosphatase 83 U/L (40-110); Anion Gap 19 mmol/L (10-20); BUN (Urea Nitrogen) 27 mg/dL (8.4-25.7); Bilirubin, Total 0.9 mg/dL (0.2-1.2); CK (CPK) 56 U/L (30-200); Calc. Creatinine Clearance 0 mL/min (70-130); Calcium 9.2 mg/dL (7.8-10.44); Carbon Dioxide 22 mmol/L (23-31); Chloride 98 mmol/L (98-107); Estimated GFR 73; Globulin 3.9 g/dL (2.4-3.5); Glucose 147 mg/dL (83-110); Potassium 4.3 mmol/L (3.5-5.1); Protein, Total 7.7 g/dL (5.8-8.1); Sodium 135 mmol/L (136-145)
[2024-04-24 15:17] LABS: Anisocytosis SLIGHT = 6-15 cells (100X) (0-5/hpf); Band 4 % (5-11); Eosinophils 1 % (0-10); Hemoglobin 15.9 g/dL (14.0-18.0); Lymphocytes 8 % (21-51); MDiff Complete? YES; Mean Corpuscular HGB CONC 31.2 g/dL (32.0-36.0); Mean Corpuscular Hemoglobin 29.2 pg (27.0-31.0); Mean Corpuscular Volume 93.6 fl (78.0-98.0); Mean Platelet Volume 11.1 fL (7.4-10.4); Monocytes 10 % (0-10); Neutrophil 72 % (42-75); Platelet Adequacy Comment Appears Adequate; Platelet Count 191 10x3/uL (130-400); RBC Distribution Width 16.3 % (11.5-14.5); Red Blood Cell (RBC) Count 5.45 mill/uL (4.70-6.10); White Blood Cell (WBC) Count 13.9 10x3/uL (4.8-10.8)
[2024-04-24 16:50] LABS: Bilirubin Negative (Negative); Blood, Urine Trace (Negative); Clarity Clear (Clear); Glucose, Urine (Dipstick) >=1000 mg/dL (Negative); Ketone, Urine 40 mg/dL (Negative); Leukocyte Negative (Negative); Nitrite Negative (Negative); Protein, Urine (Dipstick) Negative (Neg-Trace); Urobilinogen 0.2 mg/dL (Less than 2); pH, Urine 5.5 (5.0-9.0)
[2024-04-24 16:58] LABS: Bacteria/HPF Rare-Few HPF (None Seen); CAUTI Indications for Culture Alt mental st,lethar; RBC/HPF 0-3 HPF (0-3); Squamous Epithelial 0-3 HPF (0-3); WBC/HPF None Seen HPF (0-3)
[2024-04-24 16:59] LABS: Urine Culture Reflex No No
[2024-04-24] MEDS ORDERED: Doxycycline 100 MG CAP ONE (17:32)
[2024-04-24] MEDS ORDERED: cefTRIAXone (ROCEPHIN) 2 GM VIAL ONE (17:50)
== END 2024-04-24 20:39 | disposition short-term general hospital (02) ==
LOC: MADERS 14:24
DX: J18.9 Pneumonia, unspecified organism (principal); I25.10 Atherosclerotic heart disease of native coronary artery without angina pectoris; E11.9 Type 2 diabetes mellitus without complications; E78.5 Hyperlipidemia, unspecified; I10 Essential (primary) hypertension; Z86.73 Personal history of transient ischemic attack (TIA), and cerebral infarction without residual deficits
CPT/HCPCS: 36415; 71045; 80053; 81001; 82550; 83605; 83735; 85025; 87040; 87400; 87426; 96365; J0696

== ENCOUNTER 2024-05-02 07:29 | Inpatient (IN) | payer MEDICARE, BC ==
[2024-05-02 08:00] LABS: Hematocrit 48.9 % (42.0-52.0); Hemoglobin 15.4 g/dL (14.0-18.0); Mean Corpuscular HGB CONC 31.4 g/dL (32.0-36.0); Mean Corpuscular Hemoglobin 28.9 pg (27.0-31.0); Mean Corpuscular Volume 91.8 fl (78.0-98.0); Mean Platelet Volume 11.7 fL (7.4-10.4); Platelet Count 181 10x3/uL (130-400); RBC Distribution Width 15.4 % (11.5-14.5); Red Blood Cell (RBC) Count 5.33 mill/uL (4.70-6.10); White Blood Cell (WBC) Count 9.3 10x3/uL (4.8-10.8)
[2024-05-02 08:11] LABS: ALT (SGPT) 61 U/L (Less than 45); AST (SGOT) 28 U/L (11-34); Albumin 3.3 g/dL (3.1-4.5); Alkaline Phosphatase 86 U/L (40-110); Anion Gap 16 mmol/L (10-20); BUN (Urea Nitrogen) 17 mg/dL (8.4-25.7); Bilirubin, Total 0.7 mg/dL (0.3-1.2); Calc. Creatinine Clearance 0 mL/min (70-130); Calcium 9.3 mg/dL (7.8-10.44); Carbon Dioxide 21 mmol/L (23-31); Chloride 100 mmol/L (98-107); Estimated GFR 89; Globulin 3.9 g/dL (2.4-3.5); Glucose 142 mg/dL (83-110); Lipase 4 U/L (8-78); Potassium 3.9 mmol/L (3.5-5.1); Protein, Total 7.2 g/dL (5.8-8.1); Sodium 133 mmol/L (136-145)
[2024-05-02 08:12] LABS: Band 5 % (5-11); Critical Call w/ Read Back nnNP; Eosinophils 2 % (0-10); Lymphocytes 17 % (21-51); MDiff Complete? YES; Manual Diff?? YES; Monocytes 4 % (0-10); Neutrophil 72 % (42-75)
[2024-05-02 08:13] LABS: Anisocytosis SLIGHT = 6-15 cells (100X) (0-5/hpf); Platelet Adequacy Comment Appears Adequate
[2024-05-02 08:17] LABS: Troponin I 0.026 ng/mL (< 0.028)
[2024-05-02 08:34] LABS: Acetaminophen Less than 10 mcg/mL (Less than 10); Alcohol Less than 10.0 mg/dL (Less than 10); Salicylate Less than 8.0 mg/dL (Less than 8.0)
[2024-05-02] MEDS ORDERED: Iopamidol 370 76% 100 ML VIAL ONE (09:00)
[2024-05-02] MEDS ORDERED: Albuterol 200 PUFF (6.7GM INHALER) INH PRN (16:22)
[2024-05-02] MEDS: Loratadine 10 MG TAB PO SCH (17:10)
[2024-05-02] MEDS: Nystatin 500,000 UNITS/5 ML UDCUP SSW SCH (17:11)
[2024-05-02] MEDS: Sodium Chloride 0.9% 1,000 ML ONE (17:36)
[2024-05-02] MEDS: Sodium Chloride 0.9% 100 ML ONE (17:37)
[2024-05-02] MEDS: Cefepime 2 GM VIAL ONE (17:37)
[2024-05-02] MEDS: Vancomycin 1 GM VIAL ONE (17:38)
[2024-05-02] MEDS: Ondansetron PF 4 MG/2 ML Vial ONE (17:38)
[2024-05-02] MEDS: Sodium Chloride 0.9% 250 ML 250 ML ONE (17:38)
[2024-05-02] MEDS: Acetaminophen 500 MG TAB PO SCH (18:28)
[2024-05-02] MEDS: Ondansetron ODT 4 MG TAB SL PRN (18:29)
[2024-05-02 19:42] LABS: Bilirubin Negative (Negative); Blood, Urine Negative (Negative); Clarity Hazy (Clear); Glucose, Urine (Dipstick) >=1000 mg/dL (Negative); Ketone, Urine 15 mg/dL (Negative); Leukocyte Negative (Negative); Nitrite Negative (Negative); Protein, Urine (Dipstick) Negative (Neg-Trace); Urobilinogen 0.2 mg/dL (Less than 2)
[2024-05-02 19:43] LABS: Bacteria/HPF Rare-Few HPF (None Seen); RBC/HPF 0-3 HPF (0-3); Squamous Epithelial 0-3 HPF (0-3); WBC/HPF 0-3 HPF (0-3)
[2024-05-02] MEDS ORDERED: Glucagon 1 MG/ML KIT IM PRN (20:35)
[2024-05-02] MEDS ORDERED: Dextrose 50% Abboject 50 ML SYRINGE SLOW IVP PRN (20:35)
[2024-05-02] MEDS ORDERED: Acetaminophen ER (8hr) 650 MG TAB PO SCH (21:00)
[2024-05-02] MEDS ORDERED: Torsemide 20 MG TAB PO SCH (21:00)
[2024-05-02] MEDS ORDERED: Gabapentin 300 MG CAP PO SCH (21:00)
[2024-05-02] MEDS: Sodium Chloride 0.9% 1,000 ML IV SCH (21:34)
[2024-05-02 21:38] LABS: Bilirubin Negative (Negative); Blood, Urine Negative (Negative); Clarity Clear (Clear); Glucose, Urine (Dipstick) 500 mg/dL (Negative); Ketone, Urine 15 mg/dL (Negative); Leukocyte Negative (Negative); Nitrite Negative (Negative); Protein, Urine (Dipstick) Negative (Neg-Trace); RBC/HPF 0-3 HPF (0-3); Specific Gravity, Urine 1.015 (1.005-1.030); Squamous Epithelial 0-3 HPF (0-3); Urobilinogen 0.2 mg/dL (Less than 2); WBC/HPF None Seen HPF (0-3); pH, Urine 5.5 (5.0-9.0)
[2024-05-02] MEDS: Apixaban 5 MG TAB PO SCH (22:08)
[2024-05-02] MEDS: Carvedilol 6.25 MG TAB PO SCH (22:08)
[2024-05-02] MEDS: Lantus 1000 UNITS/10 ML VIAL SC SCH (22:09)
[2024-05-02] MEDS: Ipratropium/Albuterol 3 ML NEB NEB PRN (22:10)
[2024-05-02] MEDS: Latanoprost 0.005% Ophth Soln 2.5 ml Bottle EA EYE SCH (22:10)
[2024-05-02] MEDS: Triamcinolone 0.1% Cream 15 GM TUBE TOP PRN (22:20)
[2024-05-03] MEDS ORDERED: Ipratropium/Albuterol 3 ML NEB IPPB PRN ×2 (06:14→07:24)
[2024-05-03] MEDS ORDERED: Ipratropium/Albuterol 3 ML NEB NEB SCH ×2 (06:15→09:00)
[2024-05-03] MEDS: Piperacillin/Tazobactam 3.375 GM in Sodium Chloride 0.9% 100 ML IVPB SCH ×3 (07:47→15:23)
[2024-05-03] MEDS: Ipratropium/Albuterol 3 ML NEB NEB SCH ×3 (07:48→21:10)
[2024-05-03 07:50] LABS: Anion Gap 15 mmol/L (10-20); BUN (Urea Nitrogen) 16 mg/dL (8.4-25.7); Calc. Creatinine Clearance 104 mL/min (70-130); Carbon Dioxide 22 mmol/L (23-31); Chloride 107 mmol/L (98-107); Estimated GFR 91; Glucose 144 mg/dL (83-110); Potassium 4.3 mmol/L (3.5-5.1); Sodium 140 mmol/L (136-145)
[2024-05-03 08:22] LABS: Hemoglobin 14.2 g/dL (14.0-18.0); Mean Corpuscular HGB CONC 32.2 g/dL (32.0-36.0); Mean Corpuscular Hemoglobin 29.9 pg (27.0-31.0); Mean Corpuscular Volume 92.9 fl (78.0-98.0); Platelet Count 135 10x3/uL (130-400); Red Blood Cell (RBC) Count 4.74 mill/uL (4.70-6.10); White Blood Cell (WBC) Count 7.8 10x3/uL (4.8-10.8)
[2024-05-03 08:23] LABS: Anisocytosis SLIGHT = 6-15 cells (100X) (0-5/hpf); Band 3 % (5-11); Eosinophils 3 % (0-10); Lymphocytes 17 % (21-51); MDiff Complete? YES; Manual Diff?? YES; Monocytes 4 % (0-10); Neutrophil 73 % (42-75)
[2024-05-03 08:24] LABS: Platelet Adequacy Comment Appears Adequate
[2024-05-03] MEDS: Folic Acid 1 MG TAB PO SCH (08:41)
[2024-05-03] MEDS: Aspirin 81 mg Enteric Coated Tablet PO SCH (08:42)
[2024-05-03] MEDS: Potassium Chloride 20 MEQ TAB PO SCH (08:42)
[2024-05-03] MEDS: Saccharomyces boulardii 250 MG CAP PO SCH (08:42)
[2024-05-03] MEDS: Loratadine 10 MG TAB PO SCH (08:42)
[2024-05-03] MEDS: Empagliflozin 10 MG TAB PO SCH (08:42)
[2024-05-03] MEDS: Spironolactone 25 MG TAB PO SCH (08:42)
[2024-05-03] MEDS: Multivit, Therapeutic 1 TAB PO SCH (08:42)
[2024-05-03] MEDS: Pantoprazole 40 MG DR.TAB PO SCH (08:42)
[2024-05-03] MEDS: Insulin Regular, Human 100 UNIT/ML 10 ML VIAL SC PRN (12:06)
[2024-05-04] MEDS: Cholecalciferol 1,000 UNITS (25 MCG) TAB PO SCH (08:37)
[2024-05-06] MEDS: Acetaminophen 500 MG TAB PO PRN (08:45)
[2024-05-07] MEDS: Lidocaine 4% Topical Sol 50 ML BOT TOP SCH (09:32)
[2024-05-07] MEDS: Emollient 15 oz bottle 450 ML, Triamcinolone Acetonide 200 MG TOP PRN (20:35)
[2024-05-07] MEDS: Emollient 15 oz bottle 450 ML, Triamcinolone Acetonide 200 MG TOP SCH (20:36)
[2024-05-08] MEDS: Benzonatate 100 MG CAP PO PRN (20:38)
[2024-05-09] MEDS: Methotrexate Sodium 2.5 MG TAB PO SCH (09:18)
[2024-05-10 05:08] LABS: #Basophils 0.1 thou/uL (0.0-0.2); #Eosinophils 0.7 thou/uL (0.0-0.7); #Lymphocytes 2.2 thou/uL (1.20-3.40); #Monocytes 0.9 thou/uL (0.11-0.59); #Neutrophils 4.7 thou/uL (1.40-6.50); %Basophils 1.5 % (0.0-1.0); %Eosinophils 8.1 % (0.0-10.0); %Lymphocytes 25.6 % (21.0-51.0); %Monocytes 10.3 % (0.0-10.0); %Neutrophils 54.5 % (42.0-75.0); Hematocrit 49.5 % (42.0-52.0); Hemoglobin 16.1 g/dL (14.0-18.0); Mean Corpuscular HGB CONC 32.4 g/dL (32.0-36.0); Mean Corpuscular Hemoglobin 29.6 pg (27.0-31.0); Mean Corpuscular Volume 91.1 fl (78.0-98.0); Mean Platelet Volume 12.2 fL (7.4-10.4); Platelet Count 234 10x3/uL (130-400); RBC Distribution Width 15.6 % (11.5-14.5); Red Blood Cell (RBC) Count 5.44 mill/uL (4.70-6.10); White Blood Cell (WBC) Count 8.7 10x3/uL (4.8-10.8)
[2024-05-10] MEDS: Carvedilol 12.5 MG TAB PO SCH (08:54)
[2024-05-15] MEDS: Polyethylene Glycol 3350 17 GM Packet PO PRN (21:21)
[2024-05-17 05:13] LABS: Hematocrit 48.3 % (42.0-52.0); Hemoglobin 15.5 g/dL (14.0-18.0); Platelet Count 207 10x3/uL (130-400)
[2024-05-18] MEDS: Senokot S 8.6-50 MG TAB PO SCH (10:00)
[2024-05-18 17:20] LABS: Bilirubin Negative (Negative); Blood, Urine Negative (Negative); Clarity Clear (Clear); Glucose, Urine (Dipstick) >=1000 mg/dL (Negative); Ketone, Urine Negative (Negative); Leukocyte Negative (Negative); Nitrite Negative (Negative); Protein, Urine (Dipstick) Negative (Neg-Trace); Urobilinogen 0.2 mg/dL (Less than 2)
[2024-05-18 17:25] LABS: Bacteria/HPF Rare-Few HPF (None Seen); CAUTI Indications for Culture Dysuria,urgency,freq; RBC/HPF 0-3 HPF (0-3); Squamous Epithelial 0-3 HPF (0-3); Urine Culture Reflex No No; WBC/HPF None Seen HPF (0-3)
[2024-05-21 05:51] VITALS: BMI 27.8
[2024-05-23] MEDS: Famotidine 20 MG TAB PO SCH (08:37)
[2024-05-24 06:19] VITALS: BMI 28.6
[2024-05-26 05:18] LABS: Hematocrit 46.5 % (42.0-52.0); Hemoglobin 14.5 g/dL (14.0-18.0); Mean Corpuscular HGB CONC 31.1 g/dL (32.0-36.0); Mean Corpuscular Volume 93.2 fl (78.0-98.0); Mean Platelet Volume 12.6 fL (7.4-10.4); Platelet Count 156 10x3/uL (130-400); RBC Distribution Width 15.7 % (11.5-14.5); Red Blood Cell (RBC) Count 4.99 mill/uL (4.70-6.10); White Blood Cell (WBC) Count 6.6 10x3/uL (4.8-10.8)
[2024-05-26 05:26] LABS: Band 1 % (5-11); Eosinophils 5 % (0-10); Lymphocytes 25 % (21-51); MDiff Complete? YES; Monocytes 16 % (0-10); Neutrophil 53 % (42-75)
[2024-05-28 18:52] LABS: Anion Gap 17 mmol/L (10-20); BUN (Urea Nitrogen) 18 mg/dL (8.4-25.7); Calc. Creatinine Clearance 85 mL/min (70-130); Calcium 9.4 mg/dL (7.8-10.44); Carbon Dioxide 23 mmol/L (23-31); Chloride 100 mmol/L (98-107); Estimated GFR 85; Glucose 149 mg/dL (83-110); Potassium 4.7 mmol/L (3.5-5.1); Sodium 135 mmol/L (136-145)
[2024-05-29 07:15] VITALS: BP 119/71; TEMP 97.7
[2024-05-29] MEDS: Cholecalciferol (Vitamin D3) 5,000 UNITS CAPSULE PO SCH (08:42)
== END 2024-05-29 13:15 | disposition home or self-care (01) | DRG 947 ==
LOC: MADERS 07:29 → MADMS 13:21
PROVIDERS: ADMIT Family Medicine; ATTEND Family Medicine
DX: R53.81 Other malaise (principal); J18.9 Pneumonia, unspecified organism; M06.9 Rheumatoid arthritis, unspecified; I48.91 Unspecified atrial fibrillation; I11.0 Hypertensive heart disease with heart failure; I50.9 Heart failure, unspecified; E78.5 Hyperlipidemia, unspecified; K21.9 Gastro-esophageal reflux disease without esophagitis; I25.10 Atherosclerotic heart disease of native coronary artery without angina pectoris; E11.9 Type 2 diabetes mellitus without complications; Z79.899 Other long term (current) drug therapy; Z79.4 Long term (current) use of insulin
CPT/HCPCS: 36415; 36416; 70450; 71045; 71046; 71275; 74018; 74177; 80048; 80053; 80307; 81001; 83605; 83690; 83880; 84484; 85014; 85018; 85025; 85049; 87040; 87086; 87428; 93005; 94640; 94760; 96361; 96365; 96375; J0692; J1815; J2543; J3370; J7030; J7050; J7620; J8610; Q0162; Q9967